=== PATIENT | female | born 2000 | race Caucasian/White ===

== ENCOUNTER 2022-02-15 07:55 | Outpatient (REF) | payer OTHER, SELFPAY ==
[2022-02-15 11:21] LABS: Appearance Urine CLEAR; Color Urine YELLOW; Glucose Urine UA NEG (NEG); Leukocyte Esterase Urine NEG (NEG); Nitrite Urine NEG (NEG); UACC Culture Trigger NO; Urine Blood 2+ (NEG); Urine Ketones NEG (NEG); Urine Protein NEG (NEG-TRACE)
[2022-02-15 11:22] LABS: MANUAL DIFF FLAG NO
[2022-02-15 11:37] LABS: Bacteria Urine TRACE /LPF; Squamous Epithelial Cell Urine 2+ /LPF; WBC Urine 0 /HPF (0-4)
[2022-02-15 11:39] LABS: Basophils Percent Auto 0.3 % (0-2); Eosinophils Absolute Auto 0.1 X10*3/uL (0.0-0.4); Eosinophils Percent Auto 1.3 % (0-4); Hematocrit 40.9 % (37.0-47.0); Hemoglobin 13.1 g/dl (12.0-16.0); Imm Gran Abs Auto 0.04 X10*3/uL (0.00-0.03); Imm Gran Pct Auto 0.4 % (0.0-0.4); Lymphocytes Absolute Auto 2.4 X10*3/uL (1.2-4.9); Lymphocytes Percent Auto 21.7 % (20-40); Mean Corpuscular Volume 84.3 fL (80.0-98.0); Mean Platelet Volume 9.7 fL (9.4-12.3); Monocytes Absolute Auto 0.7 X10*3/uL (0.1-1.2); Monocytes Percent Auto 5.9 % (2-11); Neutrophils Absolute Auto 7.8 x10*3/uL (2.0-8.3); Neutrophils Percent Auto 70.4 % (45-73); Platelet Count 462 X10*3/uL (160-400); Red Blood Count 4.85 X10*6/uL (4.20-5.50); Red Cell Distribution Width 13.2 % (11.0-16.0); White Blood Count 11.1 X10*3/uL (4.8-10.8)
[2022-02-15 11:57] LABS: Alanine Aminotransferase 13 U/L (0-31); Albumin Level 4.2 g/dL (3.5-5.0); Alkaline Phosphatase 112 U/L (39-117); Anion Gap 14 (12-20); Aspartate Amino Transferase 14 U/L (5-31); Bilirubin Total 0.3 mg/dL (0.0-1.0); Blood Urea Nitrogen 14 mg/dL (9-16); Calcium 9.2 mg/dL (8.4-10.2); Carbon Dioxide 26 mmol/L (22-29); Chloride 104 mmol/L (96-108); Cholesterol 147 mg/dL; Estimated Glomerular Filt Rate > 60; Glucose Fasting 99 mg/dL (60-99); HDL Cholesterol 44 mg/dL; LDL Cholesterol Calculated 88 mg/dl; Potassium 4.3 mmol/L (3.3-5.1); Sodium 140 mmol/L (135-145); Total Protein 7.3 g/dL (6.5-8.0); Triglycerides 78 mg/dL
[2022-02-15 12:07] LABS: TSH reflex Free T4 1.31 uIU/mL (0.32-4.0)
== END 2022-02-15 07:56 | disposition home or self-care (01) ==
LOC: HO.HMGCLDS 07:55
PROVIDERS: PCP Nurse Practitioner Family; Visit Provider Nurse Practitioner Family
DX: Z00.00 Encounter for general adult medical examination without abnormal findings (principal)
CPT/HCPCS: 36415; 80053; 80061; 81001; 84443; 85025

== ENCOUNTER 2022-02-16 09:40 | Outpatient (REF) | payer OTHER, SELFPAY ==
[2022-02-16 11:27] LABS: MANUAL DIFF FLAG NO
[2022-02-16 11:28] LABS: Appearance Urine CLOUDY; Color Urine YELLOW; Glucose Urine UA NEG (NEG); Leukocyte Esterase Urine NEG (NEG); Nitrite Urine NEG (NEG); Specific Gravity - Urine 1.025 (1.005-1.025); UACC Culture Trigger NO; Urine Blood 3+ (NEG); Urine Ketones NEG (NEG); Urine Protein 1+ MG/DL (NEG-TRACE)
[2022-02-16 11:40] LABS: Basophils Percent Auto 0.4 % (0-2); Eosinophils Absolute Auto 0.1 X10*3/uL (0.0-0.4); Eosinophils Percent Auto 1.1 % (0-4); Hematocrit 39.8 % (37.0-47.0); Imm Gran Abs Auto 0.03 X10*3/uL (0.00-0.03); Imm Gran Pct Auto 0.3 % (0.0-0.4); Lymphocytes Percent Auto 21.7 % (20-40); Mean Corpuscular HGB Conc 32.7 g/dl (31.0-35.0); Mean Corpuscular Hemoglobin 27.1 pg (27.0-33.0); Mean Corpuscular Volume 83.1 fL (80.0-98.0); Mean Platelet Volume 9.7 fL (9.4-12.3); Monocytes Absolute Auto 0.5 X10*3/uL (0.1-1.2); Monocytes Percent Auto 5.9 % (2-11); Neutrophils Absolute Auto 6.3 x10*3/uL (2.0-8.3); Neutrophils Percent Auto 70.6 % (45-73); Platelet Count 466 X10*3/uL (160-400); Red Blood Count 4.79 X10*6/uL (4.20-5.50)
[2022-02-16 11:57] LABS: Squamous Epithelial Cell Urine 2+ /LPF
[2022-02-16 11:58] LABS: Bacteria Urine TRACE /LPF
== END 2022-02-16 09:41 | disposition home or self-care (01) ==
LOC: HO.HMGCLDS 09:40
PROVIDERS: PCP Nurse Practitioner Family; Visit Provider Nurse Practitioner Family
DX: D72.829 Elevated white blood cell count, unspecified (principal)
CPT/HCPCS: 36415; 81001; 85025

== ENCOUNTER 2022-02-23 11:52 | Emergency (ER) | payer OTHER, SELFPAY ==
--- NOTE | ~2022-02-23 | XR_ITS ---
EXAMINATION: XR CHEST CLINICAL INFORMATION: Covid positive and SOB. COMPARISON: None TECHNIQUE: Frontal view of the chest was obtained. FINDINGS: No significant abnormality is noted involving the heart, lungs, mediastinum, bony thorax or soft tissues. XR/XR chest 1V IMPRESSION: Unremarkable chest examination.
--- NOTE | 2022-02-23 12:16 | ECG_ITS ---
Test Reason : chest tightness Blood Pressure : / mmHG Vent. Rate : 091 BPM Atrial Rate : 091 BPM P-R Int : 138 ms QRS Dur : 084 ms QT Int : 348 ms P-R-T Axes : 051 031 011 degrees QTc Int : 428 ms Normal sinus rhythm with sinus arrhythmia Cannot rule out Anterior infarct , age undetermined Abnormal ECG No previous ECGs available Referred By: Generic ED Physician Electronically Signed By:JUVENCIO SANDERSON
[2022-02-23 12:51] VITALS: BP 136/58; PULSE 85; RESP 18; TEMP 36.8; O2SAT 98; BMI 43.9
[2022-02-23 13:24] LABS: COVID-19 Test Positive (Negative); IDNOW Serial# 9DB6401D
--- NOTE | 2022-02-23 14:28 | ED_ITS ---
HPI - URI/Sore Throat General Chief Complaint: General Medical Stated Complaint: Covid+/Heart palpitations/SOB Time Seen by Provider: 02/23/22 13:56 Source: patient Mode of arrival: ambulatory Limitations: no limitations History of Present Illness HPI Narrative: 21-year-old female with a past medical history of GERD and COVID presenting to the ED with complaints of intermittent headaches for the past few days with a recent COVID exposure approximately 1-1/2 to 2 weeks ago at her job. 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 She reports today when she was walking up the stairs she felt very winded/short of breath and felt like her heart was racing/palpitating. She denies any fevers, chills, dizziness, neck pain/stiffness, chest pain, cough, sputum production, orthopnea, paresthesias, nausea/vomiting/diarrhea constipation, black or bloody stools, abdominal pain, flank pain, dysuria, hematuria, abnormal vaginal discharge, rashes, recent travel or any other symptoms complaints or concerns at this time. MD elicited complaint: other (Headache, shortness of breath and palpitations) Onset (ago): day(s) (The headache started a few days ago shortness of breath started today) Consistency: constant and progressively worsening Severity: mild Able to tolerate fluids by mouth: Yes Exacerbating factors: other (Walking up the stairs started today) Relieving factors: nothing Context: sick contacts (See above) and other(s) with similar symptoms Associated symptoms: headache and shortness of breath Treatments prior to arrival: none Related Data Previous Rx's Medication Instructions Recorded pantoprazole 20 mg tablet,delayed 20 mg PO DAILY 30 days #30 tabs 02/14/22 release vitkpcbzny-twetsesrwciof-gyjvjjko 1 cap PO Q8H PRN pain #10 caps 02/23/22 50 mg-300 mg-40 mg capsule (Fioricet) Allergies Allergy/AdvReac Type Severity Reaction Status Date / Time No Known Allergies Allergy Verified 02/14/22 17:49 Review of Systems Review of Systems: Constitutional : No Weight loss, No Fever, No Chills, No Night Sweats, No Fatigue, No Malaise ENT/Mouth : No Hearing loss, No Ear Pain, No Nasal Congestion, No Sinus Pain, No Hoarseness, No sore throat, No Rhinorrhea, No Swallowing Difficulty Eyes: No Eye Pain, No Swelling, No Redness, No Foreign Body, No Discharge, No Vision Changes Cardiovascular : No Chest Pain, + SOB, No Dyspnea on Exertion, No Orthopnea, No Edema, No Palpitations Respiratory : No Cough, No Sputum, No Wheezing, No Smoke Exposure, No Dyspnea Gastrointestinal : No Nausea, No Vomiting, No Diarrhea, No Constipation, No abdominal Pain, No Hematochezia, No Melena Genitourinary : no irregular bleeding, No Dysuria, No Urinary Frequency, No Hematuria, No Urinary Incontinence, No Urgency, No Flank Pain, No Urinary Flow Changes, No Hesitancy Musculoskeletal : No joint pain, No Myalgias, No Joint Swelling Skin : No Skin Lesions, No rash Neuro : No Weakness, No Numbness, No Paresthesias, No Loss of Consciousness, No Dizziness, + Headache Psych : No Anxiety/Panic, No Depression, No SI/HI/AH/VH, No Social Issues, Heme/Lymph: No Bruising, No Bleeding,No Lymphadenopathy Endocrine : No Polyuria, No Polydipsia, No Temperature Intolerance Yes all other systems are reviewed and are negative [facility] Past Medical History Attestation statement: The following information was validated with the patient. Source: old records reviewed and nursing notes reviewed Social History Social History Housing: House Patient Tobacco Use Status: Never used Tobacco e-Cigarette/Vaping Use: Never Used Second Hand Smoke Exposure: No Advance Directives: No Advance Directives Information Provided: No service: No Current occupational status: employed Current occupation: [employer] Current occupational exposures/hazards: No Cognitive needs: No Hearing needs: No Vision needs: No Physical Exam Vital Signs: Vital Signs: Last Vital Signs Temp 98.2 F 02/23/22 12:51 Pulse 85 02/23/22 12:51 Resp 18 02/23/22 12:51 BP 136/58 L 02/23/22 12:51 Pulse Ox 98 02/23/22 12:51 BMI result Body Mass Index 43.9 vital signs have been reviewed as normal and appeared to be correct. Blood pressure 136/58. Heart rate normal. Respiration rate normal. Temperature normal. Oxygen saturation normal. Appearance: Alert. Oriented X3. No acute distress. Head: Normal external exam. Normocephalic. Atraumatic. Eyes: PERRLA. EOMI. Conjunctiva and sclera normal. Eyelids normal. ENT: EAC normal. TM's Normal. Pharynx normal. Uvula midline. Moist mucous membranes. No lesions/ulcerations or masses noted on the tongue. Normal voice. No trismus noted. No drooling noted. No muffled voice noted. Neck: Normal inspection. Neck supple. FROM. No adenopathy. Thyroid Normal. No meningeal signs. No neck mass noted. N CVS: Normal heart rate and rhythm. Heart sound normal. Pulses normal throughout. No murmurs/rales/gallops. Respiratory: No respiratory distress. Painless inspiration. Breath sounds normal. No wheezes/rales/rhonchi noted. Chest nontender. No accessory muscle usage noted or decreased air movement noted. Abdomen: Soft and nontender. Bowel sounds normal in all 4 quadrants. No distention noted. No organomegaly noted. No visible injury noted. Back: Full range of motion noted. Nontender. Skin: Skin warm and dry. Normal skin color. Normal skin turgor. No rashes/lesions/lacerations noted. Extremities: No lower extremity edema. No calf tenderness is noted. Extremities exhibit normal range of motion and nontender. Neuro: Oriented X 3. No motor deficit. No sensory deficit. Reflexes normal. Normal steady gait. No focal neuro deficits noted. CN's II-XII intact bilaterally? Vascular: + radial pulses/+ 2 distal pedal pulses/+2 dorsalis pedis b/l. Normal cap refill. No cyanosis noted to upper extremity nails and lower extremity toes nails. Course Course Course Narrative: 14:05pm - 21-year-old female with a past medical history of GERD and COVID presenting to the ED with complaints of intermittent headaches for the past few days with a recent COVID exposure approximately 1-1/2 to 2 weeks ago at her job. 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 She reports today when she was walking up the stairs she felt very winded/short of breath and felt like her heart was racing/palpitating. Patient positive for COVID. EKG is normal sinus rhythm with sinus arrhythmia with ventricular rate of 91 with a normal NE interval normal QRS duration normal QT/QTC interval. No acute ischemic change are noted. No prior EKGs to compare to at this time. Will obtain a chest x-ray and re-evaluate. MDM - URI/Sore Throat Medical Records Attestation: I reviewed the patient's medical records. Lab Data Attestation: I reviewed the patient's lab results. Labs: Lab Results 02/23/22 Range/Units 12:54 COVID-19 ([facility]) Positive A (Negative) COVID-19 Clin Com See Note Imaging Data Chest x-ray: Attestation: I personally reviewed and interpreted this imaging study as follows: Radiologist's impression: FINDINGS: No significant abnormality is noted involving the heart, lungs, mediastinum, bony thorax or soft tissues. XR/XR chest 1V IMPRESSION: Unremarkable chest examination. ECG Data Attestation: I personally reviewed and interpreted this ECG as follows: ECG interpretation date: 02/23/22 ECG interpretation time: 12:01 Interpretation: EKG is normal sinus rhythm with sinus arrhythmia with ventricular rate of 91 with a normal NE interval normal QRS duration normal QT/QTC interval. No acute ischemic change are noted. No prior EKGs to compare to at this time. Discharge Plan Discharge Clinical Impression: COVID-19 Patient Disposition: Home, Self-Care Instructions: COVID-19 (Coronavirus Disease 2019) (ED) Additional Instructions: Please self isolate per CDC guidelines for COVID-19. Return if any new or worsening symptoms. Monitor oxygen level if your oxygen level goes lower than 90% then you need to return immediately. Prescriptions: New xfftxdawht-nlqxmychqocty-ddwz [Fioricet] 50-300-40 mg capsule 1 cap PO Q8H PRN (Reason: pain) Qty: 10 0RF No Action pantoprazole 20 mg tablet,delayed release (DR/EC) 20 mg PO DAILY 30 Days Qty: 30 2RF Referrals: Roderick Cantor, [employer] [Primary Care Provider] - 2 days Stand Alone Forms: Work/School Release
== END 2022-02-23 15:28 | disposition home or self-care (01) ==
PROVIDERS: Emergency Provider Internal Medicine; PCP Nurse Practitioner Family
DX: U07.1 COVID-19 (principal); R51.9 Headache, unspecified
CPT/HCPCS: 71045; 87635; 93005; 99283

== ENCOUNTER 2022-05-09 08:41 | Outpatient (REF) | payer OTHER, SELFPAY ==
[2022-05-09 14:11] LABS: CT PCR NOT DETECTED (Not Detect.); NG PCR NOT DETECTED (Not Detect.)
[2022-05-10 12:23] LABS: BV Int Neg Control Negative (Negative); BV Int Pos Control Positive (Positive)
== END 2022-05-09 08:42 | disposition home or self-care (01) ==
LOC: HO.LNP 08:41
PROVIDERS: Visit Provider Advanced Practice Midwife
DX: Z01.419 Encounter for gynecological examination (general) (routine) without abnormal findings (principal); N94.6 Dysmenorrhea, unspecified; Z11.3 Encounter for screening for infections with a predominantly sexual mode of transmission; Z11.8 Encounter for screening for other infectious and parasitic diseases
CPT/HCPCS: 87480; 87491; 87510; 87591; 87660; 88142

== ENCOUNTER 2023-01-25 05:26 | Emergency (ER) | payer OTHER, SELFPAY ==
[2023-01-25 06:16] VITALS: BP 126/74; PULSE 93; RESP 16; TEMP 36.8; O2SAT 99; BMI 47.8
--- OUTSIDE RECORDS SUMMARY | 2023-01-25 07:23 | XMS_ITS | Continuity of Care Document ---
Author Name Unknown Organization [facility] ter Address [address] [place] [address]- Care Team Providers Care Carry In Worker Name Role Phone Lan Haynes MD Primary Care Physician [phone] Encounter [facility] [place] Date(s): 10/28/21 - 10/28/[address] [address]- Discharge Disposition: A-D/C Walkout Attending Physician: Not on Staff, Attending MD Admitting Physician: Not on Staff, Admitting MD Referring Physician: Not on Staff, Referring MD Allergies, Adverse Reactions, Alerts No Known Allergies Medications acetaminophen 325 mg oral tablet 650 mg, 2, tablet, By Mouth, Every 6 hours, PRN, # 24 tablet, Refills 0, Tot. Refills 0, Maintenance, Pain , Moderate, 10/24/21 22:03:00 EDT, Route to Pharmacy Electronically, [facility] #[id number], Partial fill upon patient request if the presc... Start Date: 10/24/21 Status: Ordered Azithromycin 5 Day Dose Pack 250 mg oral tablet 1 pack/packet, By Mouth, Once, # 6 tablet, 0 Refills, Soft Stop, 10/24/21 22:03:00 EDT, Tablet, [facility] #[id number], Partial fill upon patient request if the prescription is for a schedule IIopioid drug., 158, cm, 10/24/21 21:25:00 EDT, Michelle... Start Date: 10/24/21 Status: Ordered famotidine 10 mg oral tablet 1 tablet = 10 mg, By Mouth, 2 times a day, # 20 tablet, 0 Refills, Maintenance, 10/28/21 9:56:00 EDT, Tablet, [facility] #[id number], Partial fill upon patient request if the prescription is fora schedule II opioid drug., 158, cm, 10/28/21 2:39:... Start Date: 10/28/21 Status: Ordered Tessalon Perles 100 mg oral capsule 1 capsule = 100 mg, By Mouth, 3 times a day, PRN Cough, # 20 capsule, 0 Refills, Maintenance, 10/24/21 22:03:00 EDT, Capsule, [facility] #[id number], Partial fill upon patient request if the prescription is for a schedule II opioid drug., 158, cm... Start Date: 10/24/21 Status: Ordered Problem List Condition Effective Dates Status Health Status Inform ant Severe obesity(Confirmed) Active Vital Signs Most recent to oldest [Reference Range]: 1 2 Oxygen Saturation [94-100 %] 100 % (10/28/21 1:35 AM) 100 % (10/28/21 1:26 AM) Pulse Rate [55-90 bpm] 108 bpm *H* (10/28/21 1:35 AM) 109 bpm *H* (10/28/21 1:26 AM) Blood Pressure [90-138/55-84 mm Hg] 130/ 75mm Hg (10/28/21 1:35 AM) Respiratory Rate [16-30 br/min] 20 br/mi n (10/28/21 1:35 AM) Temperature [96.8-100.4 DegF] 98.4 DegF (10/28/21 1:45 AM) Mode of Delivery (Oxygen) Room air (10/28/21 1:35 AM) Blood pressure sites Arm, left (10/28/21 1:35 AM) Temperature Route Oral (10/28/21 1:45 AM)
--- OUTSIDE RECORDS SUMMARY | 2023-01-25 07:23 | XMS_ITS | Continuity of Care Document ---
Author Name Unknown Organization [facility] ter Address [address] [place] [id number]- Care Team Providers Care Checker Name Role Phone Lan Haynes MD Primary Care Physician [phone] [facility] [place] Date(s): 08/07/21 - 08/08/[address] [address]- Discharge Disposition: A-D/C Walkout Attending Physician: Not on Staff, Attending MD Admitting Physician: Not on Staff, Admitting MD Referring Physician: Not on Staff, Referring MD Medications No Known Medications Results Radiology Reports * Exam Date Time Procedure Performing Provider Status 08/08/21 12:32 AM Chest 2 Views Frontal and Lat Jay Rojas (Verified) Notes: (Chest 2 Views Frontal and Lat) Reason For Exam: Chest Pain;Other: RESULT: Chest 2 Views Frontal and Lat Chest 2 Views Frontal and Lat Hx of Present Illness: pt complains of chest pain for 30 minutes; Reason: Other:; Chest Pain; Clinical Question(s): Other: COMPARISON: 07/28/2015 chest radiograph. FINDINGS: LINES AND TUBES: None. LUNGS AND PLEURA: Clear lungs. Normal pulmonary vascularity. No pleural effusion. No pneumothorax. HEART, MEDIASTINUM AND GEOFF: Heart is normal in size. Normal upper mediastinal and hilar contour. BONES AND SOFT TISSUES: No acute abnormality. IMPRESSION: No acute abnormality. WSN: [id number] Ordering Physician: Kaylene Sanchez Dictated By: Vaughn Samuels MD Dictated Date/Time: 08/08/21 9:45 am Reviewed By: Vaughn Samuels MD Signed By: Vaughn Samuels MD Signed Date/Time: 08/08/21 9:45 am Transcribed By: CHINO Transcribed Date/Time: 08/08/21 9:45 am Vital Signs Most recent to oldest [Reference Range]: 1 2 Oxygen Saturation [94-100 %] 100 % (08/08/21 2:05 AM) 100 % (08/07/21 11:46 PM) Pulse Rate [55-90 bpm] 88 bpm (08/08/21 2:05 AM) 111 bpm *H* (08/07/21 11:46 PM) Blood Pressure [90-138/55-84 mm Hg] 124/ 66mm Hg (08/08/21 2:05 AM) 115/69mm Hg (08/07/21 11:46 PM) Respiratory Rate [16-30 br/min] 18 br/mi n (08/08/21 2:05 AM) 20 br/min (08/07/21 11:46 PM) Temperature [96.8-100.4 DegF] 98.3 DegF (08/08/21 2:05 AM) 98.0 DegF (08/07/21 11:46 PM) Mode of Delivery (Oxygen) Room air (08/08/21 2:05 AM) Blood pressure sites Arm, right (08/08/21 2:05 AM) Arm, right (08/07/21 11:46 PM) Temperature Route Oral (08/08/21 2:05 AM) Oral (08/07/21 11:46 PM)
[2023-01-25 07:31] LABS: MANUAL DIFF FLAG NO
[2023-01-25 07:33] LABS: Basophils Percent Auto 0.2 % (0-2); Eosinophils Percent Auto 0.1 % (0-4); Hematocrit 42.3 % (37.0-47.0); Hemoglobin 13.5 g/dl (12.0-16.0); Imm Gran Abs Auto 0.05 X10*3/uL (0.00-0.03); Imm Gran Pct Auto 0.4 % (0.0-0.4); Lymphocytes Absolute Auto 1.4 X10*3/uL (1.2-4.9); Lymphocytes Percent Auto 10.4 % (20-40); Mean Corpuscular HGB Conc 31.9 g/dl (31.0-35.0); Mean Corpuscular Hemoglobin 26.4 pg (27.0-33.0); Mean Corpuscular Volume 82.8 fL (80.0-98.0); Mean Platelet Volume 9.3 fL (9.4-12.3); Monocytes Absolute Auto 0.4 X10*3/uL (0.1-1.2); Monocytes Percent Auto 3.1 % (2-11); Neutrophils Absolute Auto 11.5 x10*3/uL (2.0-8.3); Neutrophils Percent Auto 85.8 % (45-73); Platelet Count 454 X10*3/uL (160-400); Red Blood Count 5.11 X10*6/uL (4.20-5.50); Red Cell Distribution Width 13.6 % (11.0-16.0); White Blood Count 13.4 X10*3/uL (4.8-10.8)
[2023-01-25 07:35] LABS: Appearance Urine Clear; Color Urine Yellow; Glucose Urine UA Negative (Negative); Leukocyte Esterase Urine Negative (Negative); Nitrite Urine Negative (Negative); PH 5.5 (5.0-9.0); Specific Gravity - Urine 1.015 (1.005-1.025); Urine Blood Negative (Negative); Urine Ketones Negative (Negative); Urine Protein Negative (Neg-Trace)
[2023-01-25 07:38] LABS: UPreg QC Valid YES; Urine Pregnancy NEGATIVE (NEGATIVE)
[2023-01-25 07:54] LABS: Anion Gap 14 (12-20); Blood Urea Nitrogen 9 mg/dL (9-16); Calcium 10.1 mg/dL (8.4-10.2); Carbon Dioxide 25 mmol/L (22-29); Chloride 104 mmol/L (96-108); Creatinine Clr Calc Pharmacy 153.7; Estimated Glomerular Filt Rate > 60; Glucose Random 126 mg/dL (60-115); Potassium 4.1 mmol/L (3.3-5.1); Sodium 139 mmol/L (135-145)
[2023-01-25 08:27] VITALS: BP 118/69; PULSE 97; RESP 16; TEMP 36.9; O2SAT 99
--- NOTE | 2023-01-25 08:59 | ED_ITS ---
HPI - Abdominal Pain General Chief Complaint: General Medical Stated Complaint: abd pain, radiates to back Time Seen by Provider: 01/25/23 08:26 Source: patient Mode of arrival: ambulatory Limitations: no limitations History of Present Illness HPI narrative: 22 yo female hx of GERD on pantoprazole no prior abdominal surgeries states february of last year had a full workup for abdominal pain told she did not have gallstones - here with c/o loose stools and diarrhea for 4 days no travel or antibiotic use, as well as upper abdominal pain that radiated to her back. She is compliant with medications but does note she might have laid flat after eating. She states she feels fine now and has no complaints. No fevers. MD elicited complaint: abdominal pain Pertinent past history: other (GERD) Onset (ago): day(s) (4) Pain Consistency: intermittent Location: epigastric Severity: moderate Quality: aching Radiation: back Migration to: no migration Exacerbating factors: nothing Relieving factors: nothing Associated symptoms: diarrhea Related Data Previous Rx's Medication Instructions Recorded levonorgestrel-ethinyl estradiol 1 tab PO DAILY PRN OCP #28 tabs 05/26/22 0.1 mg-20 mcg tablet (Lessina) pantoprazole 20 mg tablet,delayed 20 mg PO DAILY #90 tabs 12/09/22 release ondansetron 4 mg disintegrating 4 mg PO Q8H PRN nausea and 01/25/23 tablet vomiting #20 tabs Allergies Allergy/AdvReac Type Severity Reaction Status Date / Time No Known Allergies Allergy Verified 05/26/22 09:25 Review of Systems Review of Systems Constitutional : No Weight loss, No Fever, No Chills ENT/Mouth : No sore throat, No Rhinorrhea Eyes: No Swelling, No Redness Cardiovascular : No Chest Pain, No SOB, NoEdema Respiratory : No Cough, No Sputum, No Wheezing Gastrointestinal : no Nausea, Positive Vomiting, positive Diarrhea, positive abdominal Pain, No Hematochezia, No Melena Genitourinary : No Dysuria, No Urinary Frequency, No Hematuria, No Urgency Musculoskeletal : No joint pain, No Myalgias, No Joint Swelling Skin : No Skin Lesions, No rash Neuro : No Weakness, No Numbness, No Dizziness, No Headache Psych : No Anxiety/Panic, No Depression Heme/Lymph: No Bruising, No Lymphadenopathy Endocrine : No Polyuria, No Polydipsia All other systems reviewed and are negative. [facility] Past Medical History Attestation statement: The following information was validated with the patient. Medical History GERD (gastroesophageal reflux disease) Morbid obesity with BMI of 40.0-44.9, adult Social History Social History Housing: House Patient Tobacco Use Status: Never used Tobacco e-Cigarette/Vaping Use: Never Used Second Hand Smoke Exposure: No Advance Directives: No Advance Directives Information Provided: No service: No Current occupational status: employed Current occupation: [employer] Current occupational exposures/hazards: No Sexual orientation: Straight/Heterosexual Gender identity: Female Cognitive needs: No Hearing needs: No Vision needs: No Physical Exam ED Vital Signs: Vital Signs - 24 hr 01/25/23 06:16 01/25/23 08:27 Temperature 98.2 F 98.4 F Pulse Rate 93 97 Respiratory Rate 16 16 Blood Pressure 126/74 118/69 Pulse Oximetry 99 99 Oxygen Delivery Method Room Air Room Air BMI result Body Mass Index 47.8 Appearance: Alert. Oriented X3. No acute distress. Eyes: Pupils equal, round and reactive to light. ENT: Pharynx normal. Neck: Normal inspection. Neck supple. CVS: Normal heart rate and rhythm. Pulses normal. Respiratory: No respiratory distress. Breath sounds normal. Abdomen: Soft and nontender. Skin: Skin warm and dry. Normal skin color. Normal skin turgor. Extremities: No lower extremity edema. No calf ttp Neuro: Oriented X 3. No motor deficit. No sensory deficit. Medical Decision Making Medical Decision Making MDM Narrative: 22 yo female with hx of GERD no prior abdominal surgeries here with c/o epigastric pain and diarrhea but no travel, abx use, hx of colitis, fevers, GIB symptoms. the patient has no pain on exam now mild elevation in WBC count but on repeat exams has no ttp whatsover states she feels fine - tells me she does not have biliary colic and has been worked up negative in the past. The patient also notes no known hx of Crohns or UC but grandmother might have had colitis. She is not toxic, VS are stable, given lack of pain and feels better I do not think she warrants imaging she has negative monet's sign. will dc home with precautions. Differential Diagnosis Differential Diagnoses: The differential diagnosis associated with the presentation includes GERD, colitis, biliary colic, pancreatitis Lab Data MDM Lab Attestation statement: I reviewed the patient's lab results. 01/25/23 07:26 01/25/23 07:26 Labs: Lab Results 01/25/23 01/25/23 01/25/23 Range/Units 07:22 07:22 07:26 WBC 13.4 H (4.8-10.8) X10*3/uL RBC 5.11 (4.20-5.50) X10*6/uL Hgb 13.5 (12.0-16.0) g/dl Hct 42.3 (37.0-47.0) % MCV 82.8 (80.0-98.0) fL MCH 26.4 L (27.0-33.0) pg MCHC 31.9 (31.0-35.0) g/dl RDW 13.6 (11.0-16.0) % Plt Count 454 H (160-400) X10*3/uL MPV 9.3 L (9.4-12.3) fL Immature Gran % (Auto) 0.4 (0.0-0.4) % Neut % (Auto) 85.8 H (45-73) % Lymph % (Auto) 10.4 L (20-40) % [place] % (Auto) 3.1 (2-11) % Eos % (Auto) 0.1 (0-4) % Baso % (Auto) 0.2 (0-2) % Lymph # (Auto) 1.4 (1.2-4.9) X10*3/uL [place] # (Auto) 0.4 (0.1-1.2) X10*3/uL Eos # (Auto) 0.0 (0.0-0.4) X10*3/uL Baso # (Auto) 0.0 (0.0-0.2) X10*3/uL Abs Immat Gran (auto) 0.05 H (0.00-0.03) X10*3/uL Absolute Neuts (auto) 11.5 H (2.0-8.3) x10*3/uL Absolute Nucleated RBC 0.000 (0.0-0.012) X10*3/uL Nucleated RBC % (auto) 0.0 (0.0-0.2) /100WBC Sodium (135-145) mmol/L Potassium (3.3-5.1) mmol/L Chloride (96-108) mmol/L Carbon Dioxide (22-29) mmol/L Anion Gap (12-20) BUN (9-16) mg/dL Creatinine (0.5-1.4) mg/dL Estim Creat Clear Calc Estimated GFR Random Glucose (60-115) mg/dL Calcium (8.4-10.2) mg/dL Urine Color Yellow Urine Appearance Clear Urine pH 5.5 (5.0-9.0) Ur Specific [place] 1.015 (1.005-1.025) Urine Protein Negative (Neg-Trace) mg/dL Urine Glucose (UA) Negative (Negative) mg/dL Urine Ketones Negative (Negative) mg/dL Urine Blood Negative (Negative) Urine Nitrite Negative (Negative) Ur Leukocyte Esterase Negative (Negative) Urine Test NEGATIVE (NEGATIVE) 01/25/23 Range/Units 07:26 WBC (4.8-10.8) X10*3/uL RBC (4.20-5.50) X10*6/uL Hgb (12.0-16.0) g/dl Hct (37.0-47.0) % MCV (80.0-98.0) fL MCH (27.0-33.0) pg MCHC (31.0-35.0) g/dl RDW (11.0-16.0) % Plt Count (160-400) X10*3/uL MPV (9.4-12.3) fL Immature Gran % (Auto) (0.0-0.4) % Neut % (Auto) (45-73) % Lymph % (Auto) (20-40) % [place] % (Auto) (2-11) % Eos % (Auto) (0-4) % Baso % (Auto) (0-2) % Lymph # (Auto) (1.2-4.9) X10*3/uL [place] # (Auto) (0.1-1.2) X10*3/uL Eos # (Auto) (0.0-0.4) X10*3/uL Baso # (Auto) (0.0-0.2) X10*3/uL Abs Immat Gran (auto) (0.00-0.03) X10*3/uL Absolute Neuts (auto) (2.0-8.3) x10*3/uL Absolute Nucleated RBC (0.0-0.012) X10*3/uL Nucleated RBC % (auto) (0.0-0.2) /100WBC Sodium 139 (135-145) mmol/L Potassium 4.1 (3.3-5.1) mmol/L Chloride 104 (96-108) mmol/L Carbon Dioxide 25 (22-29) mmol/L Anion Gap 14 (12-20) BUN 9 (9-16) mg/dL Creatinine 0.69 (0.5-1.4) mg/dL Estim Creat Clear Calc 153.7 Estimated GFR > 60 Random Glucose 126 H (60-115) mg/dL Calcium 10.1 D (8.4-10.2) mg/dL Urine Color Urine Appearance Urine pH (5.0-9.0) Ur Specific [place] (1.005-1.025) Urine Protein (Neg-Trace) mg/dL Urine Glucose (UA) (Negative) mg/dL Urine Ketones (Negative) mg/dL Urine Blood (Negative) Urine Nitrite (Negative) Ur Leukocyte Esterase (Negative) Urine Test (NEGATIVE) External Record Review External record reviewed: Office record Tests considered The following testing was considered but not selected: CT scan and US - no pain on abdominal exam to suggest colitis and negative murphys sign with normal labs no RUQ pain doubt biliary colic or pancreatitis Prescription Management I considered prescription management with: Other (zofran) Discharge Plan Discharge Clinical Impression: Acute upper abdominal pain Diarrhea Qualifiers: Diarrhea type: unspecified type Qualified Code(s): R19.7 - Diarrhea, unspecified Patient Disposition: Home, Self-Care Instructions: Acute Diarrhea (ED), Acute Abdominal Pain (ED) Additional Instructions: return for fevers, vomiting, return of pain, black or bloody stools, inability to eat or drink or any other concerns. your WBC count was mildly elevated make sure your doctor rechecks this in a week when feeling better. eat a bland diet - stay hydrated avoid spicy and greasy foods advance diet slowly over 24 hours as tolerated Prescriptions: New ondansetron 4 mg tablet,disintegrating 4 mg PO Q8H PRN (Reason: nausea and vomiting) Qty: 20 0RF No Action pantoprazole 20 mg tablet,delayed release (DR/EC) 20 mg PO DAILY Qty: 90 0RF levonorgestrel-ethinyl estrad [Lessina] 0.1-20 mg-mcg tablet 1 tab PO DAILY PRN (Reason: OCP) Qty: 28 4RF Stand Alone Forms: Work/School Release
[2023-01-25 09:31] LABS: Alanine Aminotransferase 12 U/L (0-31); Albumin Level 4.3 g/dL (3.5-5.0); Alkaline Phosphatase 112 U/L (39-117); Aspartate Amino Transferase 13 U/L (5-31); Bilirubin Direct 0.1 mg/dL (0.0-0.5); Bilirubin Total 0.3 mg/dL (0.0-1.0); Lipase 11 U/L (8-78)
== END 2023-01-25 10:22 | disposition home or self-care (01) ==
PROVIDERS: Emergency Provider Emergency Medicine; PCP Nurse Practitioner Family
DX: R19.7 Diarrhea, unspecified (principal); R10.10 Upper abdominal pain, unspecified; E66.9 Obesity, unspecified; Z68.42 Body mass index [BMI] 45.0-49.9, adult
CPT/HCPCS: 36415; 80048; 80076; 81003; 81025; 83690; 85025; 99283; 99284

== ENCOUNTER 2023-02-16 10:12 | Outpatient (AMB) | payer OTHER, SELFPAY ==
[2023-02-16 11:03] VITALS: BP 100/64; PULSE 86; O2SAT 100; BMI 48.3
--- NOTE | 2023-02-16 11:03 | A.OFFPC_ITS ---
Vital Signs 02/16/23 11:03 Height 5 ft 2 in Weight 264 lb 2 oz BMI 48.3 BP 100/64 Blood Pressure Location Lt brachial Position Sitting Pulse 86 Pulse Source Pulse Oximeter Pulse Oximetry (%) 100 Oxygen Delivery Method Room Air Intake Visit Reasons: PE Allergies No Known Allergies Allergy (Verified 02/16/23 11:04) Medication List - Last Reconciled 02/16/23 by PEDRO Edwards pantoprazole 20 mg PO DAILY Tobacco use date assessed: 02/16/23 HPI PE HPI Details Pt is here for a PE. Will order labs. Has a rn urgent care. [facility] Medical History GERD (gastroesophageal reflux disease) Morbid obesity with BMI of 40.0-44.9, adult Social History Housing: House Patient Tobacco Use Status: Never used Tobacco e-Cigarette/Vaping Use: Never Used Second Hand Smoke Exposure: No service: No Current occupational status: employed Current occupation: [employer] Current occupational exposures/hazards: No Sexual orientation: Straight/Heterosexual Gender identity: Female Cognitive needs: No Hearing needs: No Vision needs: No Female Reproductive History Menstrual Age of Menarche: 8 Questionnaire Thrive Questionnaire Date Thrive assessed: 02/14/22 CHARI-7 AMB Questionnaire CHARI-7 Date CHARI - 7 assessed: 02/14/22 Source: Developed by Drs. Maynor Rosales, Ellen Freire, Luiz Francis and colleagues, with an educational jin from [employer]. Review of Systems Const Denies chills and Denies fever(s) Eyes Denies blurry vision ENT Denies vertigo, Denies dizziness and Denies sore throat Card Denies chest pain at rest, Denies chest pain with activity, Denies diaphoresis, Denies dyspnea and Denies dyspnea on exertion Resp Denies cough, Denies dyspnea, Denies dyspnea on exertion and Denies wheezing GI Denies abdominal pain, Denies melena, Denies hematochezia, Denies constipation, Denies diarrhea and Denies loose stools Denies hematuria Musc Denies numbness and Denies tingling Skin/Breast Denies lesions Neuro Denies vertigo, Denies dizziness, Denies numbness and Denies tingling Psych Denies anxiety, Denies depression, Denies homicidal ideation, Denies suicidal ideation and Denies other (substance abuse) Aller/Immun Denies wheezing Physical exam (Primary Care) Vital Signs: Last Vital Signs Pulse 86 02/16/23 11:03 BP 100/64 02/16/23 11:03 Pulse Ox 100 02/16/23 11:03 Oxygen Delivery Method Room Air 02/16/23 11:03 BMI result Body Mass Index 48.3 Tobacco/Smoking Status: Tobacco use Status Tobacco use date assessed 02/16/23 02/16/23 11:05 Patient Tobacco Use Status Never used Tobacco 02/16/23 11:05 e-Cigarette/Vaping Use Never Used 02/16/23 11:05 Thrive Assessment: Date of Thrive Assessment Date Thrive assessed 02/14/22 02/16/23 11:05 Const General: cooperative Nutritional Appearance: obese morbidly obese Orientation/consciousness: patient oriented x3 HENMT Head: Yes normal to inspection, Yes normocephalic and Yes atraumatic Ears: TM's normal bilaterally Eyes General: appearance normal, both eyes and all related structures Alignment and Position: alignment normal and position normal Neck Neck: Yes normal visual inspection and Yes no lymphadenopathy Thyroid: Thyroid normal Resp Effort & Inspection: normal respiratory effort Auscultation: clear to auscultation bilaterally Cardio Rate: regular rate Rhythm: regular rhythm Heart sounds: S1 normal heart sound present, S2 normal heart sound present and no murmurs GI Palpation (GI): Soft to palpation and nontender Auscultation: normal bowel sounds Skin Rashes: no rashes Neuro General: patient oriented x3, moves all extremities, no focal motor deficits and deep tendon reflexes 2+ bilaterally Romberg Test: Negative Psych Appearance: grossly normal Mental Status: mental status grossly normal Speech and movement: Normal speech and movement present Affect: normal affect Attitude: cooperative Thought process: Normal thought process present Thought content: Normal thought content present Insight: Good insight present (Psych) Judgement: Good judgement present (Psych) Assessment and Plan Assessment & Plan (1) Physical exam: Code(s): Z00.00 - Encounter for general adult medical examination without abnormal findings Plan: Labs ordered Plan The patient agreed to the use of a anesthesiology medical doctor for this encounter. Scribed for PEDRO Dewitt by Alie Rebollar, anesthesiology medical doctor, on 02/16/2023 at 11:10 EST. Orders: Orders Comprehensive [place]. Panel Fast Today Z00.00 - Encounter for general adult medical examination without abnormal findings Lipid Panel Today Z00.00 - Encounter for general adult medical examination wi thout abnormal findings TSH reflex Free T4 Today Z00.00 - Encounter for general adult medical examination without abnormal findings Complete Blood Count Auto Diff Today Z00.00 - Encounter for general adult medical examination without abnormal findings UA CC w/rflx Micro + Cult Today Z00.00 - Encounter for general adult medical examination without abnormal findings Coding Level of Care Code Est Pt Prev Care 18-39y(50799) Diagnoses Physical exam Z00.00
== END 2023-02-16 11:28 | disposition home or self-care (01) ==
PROVIDERS: Visit Provider Nurse Practitioner Family
DX: Z00.00 Encounter for general adult medical examination without abnormal findings (principal)
CPT/HCPCS: 99395

== ENCOUNTER 2023-04-20 10:10 | Inpatient (IN) | payer OTHER, SELFPAY ==
[2023-04-20] VITALS (7 sets, daily range): BP systolic 116–156; BP diastolic 67–95; PULSE 77–99; RESP 16–18; TEMP 36.2–37.2; O2SAT 95–99; BMI 45.7
--- NOTE | 2023-04-20 10:28 | ED.GENADULT ---
HPI - General Adult General Chief complaint: Abdominal Pain Stated complaint: abd pain back pain Time Seen by Provider: 04/20/23 10:27 Source: patient and family (patient's mother) Mode of arrival: ambulatory Limitations: no limitations History of Present Illness HPI narrative: Patient is a 22 year old assigned female at with a history of GERD on a PPI presenting to the emergency department today with RUQ abdominal pain. Patient states that over the last day she has had right upper quadrant abdominal pain that is not getting better. Patient states that she has been vomiting. Patient states that the pain feels better when curled over. Patient denies any dizziness, lightheadedness, fever, chills, blurry vision, double vision, loss of vision, chest pain, difficulty breathing, shortness of breath, back pain, night sweats, pain with urination, increased urinary frequency, increased urinary urgency, blood in her urine or stool, syncope or a near syncopal episode, recent trauma or falls, bowel incontinence, bladder incontinence, bowel retention, bladder retention, or any other complaints at this time. Onset (ago): day(s) Location: abdomen Severity: mild Severity scale (1-10): 5 Quality: aching Pain Consistency: constant Relieving factors: none Exacerbating factors: none Associated symptoms: nausea/vomiting Treatments prior to arrival: none Related Data Previous Rx's Medication Instructions Recorded pantoprazole 20 mg tablet,delayed 20 mg PO DAILY #90 tabs 12/09/22 release Allergies Allergy/AdvReac Type Severity Reaction Status Date / Time No Known Allergies Allergy Verified 04/20/23 10:12 Review of Systems Constitutional: Constitutional: Reports no additional constitutional complaints, Denies chills, Denies fever(s) and Denies night sweats Eyes: Eyes: Reports no additional eye complaints, Denies blurry vision, Denies change in vision, Denies diplopia, Denies eye discharge, Denies loss of vision and Denies eye pain ENT: Denies dizziness Cardiovascular: Cardiovascular: Reports no additional cardiovascular complaints, Denies chest pain, Denies lightheadedness, Denies Loss of Consciousness and Denies dyspnea Respiratory: Respiratory: Reports no additional respiratory complaints and Denies dyspnea Gastrointestinal: Gastrointestinal: Reports abdominal pain, Denies melena, Denies hematochezia, Denies change in bowel habits, Denies change in stool character, Denies diarrhea, Reports nausea and Reports vomiting (one episode this morning) Genitourinary: Genitourinary: Denies hematuria, Denies urinary frequency, Denies dysuria, Denies urinary incontinence, Denies urinary hesitancy and Denies urinary urgency Musculoskeletal: Musculoskeletal: Reports no additional musculoskeletal complaints, Denies numbness and Denies tingling Neurologic: Denies dizziness, Denies loss of vision, Denies numbness and Denies tingling Psychiatric: Psychiatric: Reports no additional psychiatric complaints Endocrine: Endocrine: Reports no additional endocrine complaints Hematologic/Lymphatic: Hematologic/Lymphatic: Reports no additional hematologic/lymphatic complaints Allergic/Immunologic: Allergic/Immunologic: Reports no additional allergic/immunologic complaints PMFSH Past Medical History Attestation statement: The following information was validated with the patient. (patient's information was validated by the patient's mother) Source: old records reviewed, obtained from family (patient's mother provided additional history and confirmed the history provided by the patient.) and nursing notes reviewed Medical History Morbid obesity with BMI of 40.0-44.9, adult GERD (gastroesophageal reflux disease) Social History Social History Housing: House Patient Tobacco Use Status: Never used Tobacco Smoked in Last 30 Days: No e-Cigarette/Vaping Use: Never Used Second Hand Smoke Exposure: No Use of substances other than those prescribed or required for medical reasons: No Advance Directives: No Advance Directives Information Provided: Yes Patient : No service: No Current occupational status: employed Current occupation: [employer] Current occupational exposures/hazards: No Sexual orientation: Straight/Heterosexual Gender identity: Female Cognitive needs: No Hearing needs: No Vision needs: No Physical Exam ED Vital Signs: Vital Signs - 24 hr 04/20/23 10:12 04/20/23 10:25 04/20/23 11:59 Temperature 99 F 97.5 F 97.8 F Pulse Rate 99 97 88 Respiratory Rate 18 18 18 Blood Pressure 146/95 H 127/78 126/72 Pulse Oximetry 99 98 95 Oxygen Delivery Method Room Air Room Air Room Air BMI result Body Mass Index 45.7 Const General: cooperative, no acute distress, alert and awake Nutritional Appearance: well nourished Orientation/consciousness: patient oriented x3 Limitations: no limitations HENMT Head: Yes normal to inspection and Yes atraumatic Ears: hearing grossly normal bilaterally and external ears normal General nose exam: Normal external nose present, no nasal discharge noted and no epistaxis Face and sinus: Yes normal facial exam, No abrasion and No laceration Mouth: Normal oral and palatal mucosa present, no drooling and no muffled voice Eyes General: appearance normal, both eyes and all related structures Periorbital: periorbital findings normal Eyelids: Yes eyelids normal Conjunctivae: conjunctivae normal Pupils: Equal, round and reactive pupils present EOM: EOMs intact bilaterally Neck Neck: Yes normal visual inspection, Yes full ROM and Yes no lymphadenopathy Chest Chest palpation & inspection: normal inspection of the chest Resp Effort & Inspection: normal respiratory effort and able to speak in complete sentences Auscultation: clear to auscultation bilaterally Cardio Rate: regular rate Rhythm: regular rhythm GI Inspection: Yes normal to inspection Palpation (GI): Soft to palpation, not firm, Tenderness to palpation present (GI) in the RUQ, no guarding and not rigid Neuro General: patient oriented x3 and moves all extremities Cranial nerves: Yes Equal, round and reactive pupils present Cognition (Neuro): normal cognition Motor exam (neuro): 5/5 motor strength present throughout Sensory Exam: Normal double simultaneous stimulation for sensation Coordination: [id number] test normal Extrem General: Yes normal to inspection, Yes full ROM and Yes capillary refill normal Psych Appearance: grossly normal Mental Status: mental status grossly normal Affect: normal affect Attitude: cooperative Thought process: Normal thought process present Thought content: Normal thought content present Insight: Good insight present (Psych) Medications Administered Discontinued Medications Generic Name Dose Route Start Last Admin Trade Name Geoffrey PRN Reason Stop Dose Admin Iohexol 85 ml 04/20/23 11:56 04/20/23 11:56 Iohexol 350 Mg/Ml 100 Ml Infus..Btl IV 04/20/23 11:57 85 ml ONCE ONE Administration Morphine Sulfate 4 mg 04/20/23 11:39 04/20/23 11:53 Morphine Sulfate 4 Mg/Ml Cartridge IVPUSH 04/20/23 11:40 4 mg ONCE ONE Administration Protocol Ondansetron HCl 4 mg 04/20/23 11:39 04/20/23 11:53 Ondansetron Hcl 4 Mg/2 Ml Vial IVPUSH 04/20/23 11:40 4 mg ONCE ONE Administration Medical Decision Making Medical Decision Making [facility] Narrative: Patient is a 22 year old assigned female at with no reported medical history presenting to the emergency department today with right upper quadrant abdominal pain. Patient's physical exam was as noted in the physical exam portion of this note. Patient's blood work showed an elevated WBC count of 18.7 but was otherwise unremarkable. Patient's abdominal/pelvis CT showed cholelithasis without wall thickening or pericholecystic fluid collection, a 2.4cm left ovarian cyst, and mild constipation. Patient was given IV morphine however, it did not help with the pain. Patient's clinical presentation is not consistent with sepsis (@1345). I consulted with the surgical team who agreed to admission with the patient on liquids until midnight and then NPO. I explained my physical exam findings as well as all test results to the patient and the patient's mother. I answered all questions asked by the patient and the patient's mother. Patient and the patient's mother verbalized agreement and understanding with this treatment plan and admission. Differential Diagnosis Differential Diagnoses: The differential diagnosis associated with the presentation includes Cholecystitis Choleangitis Cholelithiasis Abdominal pain Nausea Vomiting Admission/Observation Consideration of admission/observation: Escalation of care including admission/observation considered Patient admitted to the surgical service. Consult Healthcare Provider Management of the patient was discussed with: Cook Supervisor (spoke with the surgical team as noted in the MDM rationale portion of this note.) Lab Data [facility] Lab Attestation statement: I reviewed the patient's lab results. My interpretation of these results are in the MDM Rationale portion of this note. 04/20/23 10:42 04/20/23 10:42 Labs: Lab Results 04/20/23 04/20/23 Range/Units 10:42 10:42 WBC 18.7 H (4.8-10.8) X10*3/uL RBC 5.28 (4.20-5.50) X10*6/uL Hgb 14.0 (12.0-16.0) g/dl Hct 43.1 (37.0-47.0) % MCV 81.6 (80.0-98.0) fL MCH 26.5 L (27.0-33.0) pg MCHC 32.5 (31.0-35.0) g/dl RDW 13.8 (11.0-16.0) % Plt Count 537 H (160-400) X10*3/uL MPV 9.2 L (9.4-12.3) fL Immature Gran % (Auto) 0.4 (0.0-0.4) % Neut % (Auto) 87.9 H (45-73) % Lymph % (Auto) 8.7 L (20-40) % [place] % (Auto) 2.8 (2-11) % Eos % (Auto) 0.0 (0-4) % Baso % (Auto) 0.2 (0-2) % Lymph # (Auto) 1.6 (1.2-4.9) X10*3/uL [place] # (Auto) 0.5 (0.1-1.2) X10*3/uL Eos # (Auto) 0.0 (0.0-0.4) X10*3/uL Baso # (Auto) 0.0 (0.0-0.2) X10*3/uL Abs Immat Gran (auto) 0.08 H (0.00-0.03) X10*3/uL Absolute Neuts (auto) 16.5 H (2.0-8.3) x10*3/uL Absolute Nucleated RBC 0.000 (0.0-0.012) X10*3/uL Nucleated RBC % (auto) 0.0 (0.0-0.2) /100WBC PT 13.1 (11.1-13.3) SEC INR 1.1 (0.9-1.1) APTT 32.9 (26.0-36.4) SEC Sodium 139 (135-145) mmol/L Potassium 4.3 (3.3-5.1) mmol/L Chloride 104 (96-108) mmol/L Carbon Dioxide 22 (22-29) mmol/L Anion Gap 17 (12-20) BUN 18 H (9-16) mg/dL Creatinine 0.75 (0.5-1.4) mg/dL Estim Creat Clear Calc 137.7 Estimated GFR > 60 Random Glucose 135 H (60-115) mg/dL Calcium 10.3 H (8.4-10.2) mg/dL Magnesium 2.2 (1.6-2.6) mg/dL Total Bilirubin 0.3 (0.0-1.0) mg/dL AST 16 (5-31) U/L ALT 15 (0-31) U/L Alkaline Phosphatase 110 (39-117) U/L Total Protein 8.7 H (6.5-8.0) g/dL Albumin 4.7 (3.5-5.0) g/dL Lipase 10 Cancelled (8-78) U/L Beta HCG, Quant < 2 mIU/mL Influenza Type A (PCR) NEGATIVE (Negative) Influenza Type B (PCR) NEGATIVE (Negative) RSV RNA Qual (PCR) NEGATIVE (Negative) SARS-CoV-2 RNA (RT-PCR) NEGATIVE (Negative) Independent Interpretation I performed an independent interpretation of an: CT Scan Interpretation: My interpretation is in agreement with the radiologist's impression of this imaging study. EXAMINATION: CT ABDOMEN AND PELVIS WITH CONTRAST CLINICAL INFORMATION: Abdominal pain COMPARISON: None available. TECHNIQUE: Multidetector volumetric images were obtained from the superior aspect of the liver through the pubic symphysis following administration 85 mL of Omnipaque 350 intravenous contrast. Sagittal and coronal reformatted images were obtained on the technologist's workstation. Oral contrast: No This CT examination was performed using dose optimization techniques as appropriate, variously including the following: *Automated exposure control *Adjustment of mA and/or kV according to patient size (this includes techniques or standardized protocols for targeted exams where dose is matched to indication/reason for exam; i.e. extremities or head) *Use of iterative reconstruction technique DLP: 1117 mGy-cm FINDINGS: LUNG BASES: There is platelike atelectasis right middle lobe. The lung bases are clear. The heart size is normal. LIVER, GALLBLADDER, AND BILIARY TREE: The liver is normal in size, shape, and attenuation. No focal hepatic lesion or biliary ductal dilatation is present. There are dependent radiopaque gallstones without wall thickening or pericholecystic fluid collection. Punctate gallbladder wall calcification is seen along the posterior wall PANCREAS: Unremarkable. SPLEEN: Unremarkable. ADRENAL GLANDS: Unremarkable. KIDNEYS AND URETERS: The kidneys are normal in size, shape, and attenuation. No hydronephrosis, hydroureter, or calculi seen. No perinephric stranding. BLADDER: Unremarkable. GASTROINTESTINAL TRACT: There is scattered stool and gas seen throughout the colon without any significant distention. The small bowel loops are normal caliber. Appendix is normal caliber. No free air or free fluid seen. ABDOMINAL WALL: No significant hernia is appreciated. LYMPH NODES: Normal. VASCULAR: Unremarkable. PELVIC VISCERA: The uterus is anteverted and appears unremarkable. No free air or free fluid seen. Incidental finding of 2.4 cm lesion left adnexa likely ovarian cyst. OSSEOUS STRUCTURES: No aggressive lytic or sclerotic process seen. CT/CT abdomen pelvis w IV con IMPRESSION: 1. No acute intra-abdominal process seen. 2. Cholelithiasis without wall thickening or pericholecystic fluid collection. 3. Mild constipation. 4. Incidental finding of 2.4 cm lesion left adnexa likely ovarian cyst. Moderate constipation with no acute intra-abdominal process seen. Normal appendix. Fleischner guidelines were followed. Dictated By: Ayaan Barnett MD Signed By: Electronically signed by Ayaan Barnett MD 04/20/23 1303 Radiology Impression Discussion of test interpretation with radiology: I have reviewed the radiologist's reading. Independent Historian Clinical information obtained from an independent historian. History obtained from or confirmed by: Parent (patient's mother provided additional history and confirmed the history provided by the patient.) Critical Care Time Critical Care Time Critical Care Time: Yes Total Critical Care Time: 45 Attestation: I spent 45 minutes of Critical Care Time with this patient. This does not include time spent on separately reported billable procedures. Discharge Plan Discharge Clinical Impression: Cholelithiases Patient Disposition: Admitted As Inpatient
--- NOTE | 2023-04-20 10:58 | PC.NURSE ---
pt a&ox3, vss and up to date. pt comes in today d/t 10/10 RUQ pain that radiates to flank area bilaterally. pt also verbalizes dizziness/nausea/vomiting x1 time this am. pt denies any urinary symptoms or hx of kidney stones. pt went to urgent care this am where they sent her here because they were concerned about gallbladder. normoactive bs noted upon auscultation. RUQ/right flank area tender upon palpation. pt currently tearful while speaking w/ ED providers. 20gIV placed in right AC. labs drawn and sent to lab. pt aware that we need urine sample. pt aware of plan of care at this time. pt's mother bedside for support. call betancourt placed within reach.
[2023-04-20 11:11] LABS: Alanine Aminotransferase 15 U/L (0-31); Albumin Level 4.7 g/dL (3.5-5.0); Alkaline Phosphatase 110 U/L (39-117); Anion Gap 17 (12-20); Aspartate Amino Transferase 16 U/L (5-31); Bilirubin Total 0.3 mg/dL (0.0-1.0); Blood Urea Nitrogen 18 mg/dL (9-16); Calcium 10.3 mg/dL (8.4-10.2); Carbon Dioxide 22 mmol/L (22-29); Chloride 104 mmol/L (96-108); Creatinine Clr Calc Pharmacy 137.7; Estimated Glomerular Filt Rate > 60; Glucose Random 135 mg/dL (60-115); HCG Quantitative < 2 mIU/mL; Lipase 10 U/L (8-78); Magnesium 2.2 mg/dL (1.6-2.6); Potassium 4.3 mmol/L (3.3-5.1); Sodium 139 mmol/L (135-145); Total Protein 8.7 g/dL (6.5-8.0)
--- NOTE | 2023-04-20 11:26 | PC.NURSE ---
pt requesting pain medication - provider aware. will administer when able.
--- NOTE | 2023-04-20 11:37 | PC.NURSE ---
pt currently being transferred to CT.
--- NOTE | 2023-04-20 12:01 | PC.NURSE ---
pt returned from CT. pt medicated per provider order. will reassess pain level shortly. lights dimmed with call betancourt placed within reach. family bedside for support.
--- NOTE | 2023-04-20 13:58 | PM.HPGS ---
History of Present Illness History of Present Illness Date of Service: 04/20/23 <Alexus Merlos PA-C - Last Filed: 04/20/23 14:13> 04/20/23 <Alessio Bruno MD - Last Filed: 04/20/23 14:57> Chief complaint: acute cholecystitis <Alexus Merlos PA-C - Last Filed: 04/20/23 14:13> Narrative: Kristina Sharif is a 22 year old female with PMH of GERD who presented to the ED with complaints of RUQ abdominal pain. She reports pain started last night around 11pm and awoke her out of sleep. The pain is located in the RUQ/epigastric area and radiates to the right upper back. It is sharp and severe in nature. It was associated with nausea and vomiting. She reports several similar episodes of the last 6 months. She was diagnosed with GERD initially and given pantoprozole with no improvement in her symptoms. The episodes are not provoked by food intake. The previous episodes all resolved over the course of an hour but this one persisted and she came to the ED for evaluation. Work up in the ED included CBC, BMP, LFTs which was significant for a leukocytosis of 18. CT scan abd/pelvis was obtained which showed gallstones without wall thickening or pericholecystic fluid collection. She received morphine in the ED and continues to have severe pain. She denies fever, chills, change in skin color, urine or stool color. <Alexus Merlos PA-C - Last Filed: 04/20/23 14:13> Review of Systems Constitutional: Constitutional: Denies chills and Denies fever(s) <Alexus Merlos PA-C - Last Filed: 04/20/23 14:13> ENT: Denies dizziness <CARROL De Los Santos Last Filed: 04/20/23 14:13> Cardiovascular: Cardiovascular: Denies chest pain and Denies dyspnea <CARROL De Los Santos Last Filed: 04/20/23 14:13> Respiratory: Respiratory: Denies dyspnea <CARROL De Los Santos Last Filed: 04/20/23 14:13> Gastrointestinal: Gastrointestinal: Reports as per HPI, Reports abdominal pain, Denies melena, Denies hematochezia, Denies change in stool character, Denies diarrhea, Reports nausea and Reports vomiting <Alexus Merlos PA-C Last Filed: 04/20/23 14:13> Genitourinary: Genitourinary: Denies hematuria and Denies dysuria <Alexus Merlos PA-C - Last Filed: 04/20/23 14:13> Integumentary/Breasts: Skin/Breast: Denies rash and Denies jaundice <Alexus Merlos PA-C - Last Filed: 04/20/23 14:13> Neurologic: Denies dizziness <Alexus Merlos PA-C Last Filed: 04/20/23 14:13> [facility] Past Medical History Medical History: Medical History Morbid obesity with BMI of 40.0-44.9, adult GERD (gastroesophageal reflux disease) <CARROL De Los Santos Last Filed: 04/20/23 14:13> Social History Social History: Social History Housing: House Patient Tobacco Use Status: Never used Tobacco Smoked in Last 30 Days: No e-Cigarette/Vaping Use: Never Used Second Hand Smoke Exposure: No Use of substances other than those prescribed or required for medical reasons: No Advance Directives: No Advance Directives Information Provided: Yes Nutrition Risks: No Nutritional Risk Patient : No service: No Current occupational status: employed Current occupation: [employer] Current occupational exposures/hazards: No Sexual orientation: Straight/Heterosexual Gender identity: Female Cognitive needs: No Hearing needs: No Vision needs: No <CARROL De Los Santos Last Filed: 04/20/23 14:13> Meds Allergies/Adverse reactions: Allergies Allergy/AdvReac Type Severity Reaction Status Date / Time No Known Allergies Allergy Verified 04/20/23 10:12 <CARROL De Los Santos Last Filed: 04/20/23 14:13> Physical Exam Vital Signs: Vital Signs: Last Vital Signs Temp 97.8 F 04/20/23 11:59 Pulse 88 04/20/23 11:59 Resp 18 04/20/23 11:59 BP 126/72 04/20/23 11:59 Pulse Ox 95 04/20/23 11:59 O2 Del Method Room Air 04/20/23 11:59 BMI result Body Mass Index 45.7 <[facility] Last Filed: 04/20/23 14:13> Const: General: no acute distress and alert <[facility] Last Filed: 04/20/23 14:13> Orientation/consciousness: patient oriented x3 <[facility] Last Filed: 04/20/23 14:13> Resp: Effort & Inspection: normal respiratory effort <[facility] Last Filed: 04/20/23 14:13> GI: Other: corpulent abdomen <[facility] Last Filed: 04/20/23 14:13> Inspection: No scar <AlexusCAROL [facility]Sal[facility] Last Filed: 04/20/23 14:13> Palpation (GI): Soft to palpation, Tenderness to palpation present (GI) in the epigastrum, in the RUQ and Plunkett's sign positive, no guarding and not rigid <[facility] Last Filed: 04/20/23 14:13> Percussion: Yes normal to percussion <[facility] Last Filed: 04/20/23 14:13> Skin: General skin exam: no rashes or lesions noted and no jaundice <[facility] Last Filed: 04/20/23 14:13> Neuro: General: patient oriented x3 and moves all extremities <[facility] Last Filed: 04/20/23 14:13> Extrem: General: Yes no clubbing, cyanosis or edema <[facility] Last Filed: 04/20/23 14:13> Results Results Labs: Short CBC 04/20/23 Range/Units 10:42 WBC 18.7 H (4.8-10.8) X10*3/uL Hgb 14.0 (12.0-16.0) g/dl Hct 43.1 (37.0-47.0) % Plt Count 537 H (160-400) X10*3/uL BMP 04/20/23 10:42 Sodium 139 Potassium 4.3 Chloride 104 Carbon Dioxide 22 BUN 18 H Creatinine 0.75 Calcium 10.3 H Liver Function 04/20/23 Range/Units 10:42 Total Bilirubin 0.3 (0.0-1.0) mg/dL AST 16 (5-31) U/L ALT 15 (0-31) U/L Alkaline Phosphatase 110 (39-117) U/L Albumin 4.7 (3.5-5.0) g/dL <CARROL De Los Santos Last Filed: 04/20/23 14:13> Abdomen CT scan report/results: report reviewed and image reviewed <CARROL De Los Santos Last Filed: 04/20/23 14:13> Assessment and Plan (1) Acute cholecystitis: Status: Acute <CARROL De Los Santos Last Filed: 04/20/23 14:13> 22 year old female with RUQ abd pain and vomiting with RUQ tenderness, plunkett sign on exam, leukocytosis and gallstones on imaging without wall thickening or pericholecystic fluid. Clinical picture suggestive of biliary colic, likely early acute cholecystitis with gallstone impacted at the gallbladder neck. She is admitted to the surgical service for further treatment. Treatment options including laparoscpic cholecystectomy, possible open versus observation and antibiotic therapy were discussed with the patient. Risks, benefits, alternatives of laparoscopic possible open cholecystectomy were reviewed with the patient including but not limited to bleeding, infection, numbness, pain, poor healing, injury to the liver, bowel or bile ducts, leak, retained stones and the patient wishes to proceed.?She is added onto the OR schedule for tomorrow. She is started on IV zosyn empirically, IVF, PRN analgesics for pain, NPO after midnight. <CARROL De Los Santos Last Filed: 04/20/23 14:13> Time Spent With Patient Time: Total time managing care of this patient today ____ minutes. <CARROL De Los Santos Last Filed: 04/20/23 14:13> Quality Stroke Does the patient have a stroke diagnosis?: No <Alexus Merlos PA-C - Last Filed: 04/20/23 14:13> VTE Prior VTE?: No <Alexus Merlos PA-C - Last Filed: 04/20/23 14:13> VTE Risk Level:: Surgical - low <Alexus Merlos PA-C - Last Filed: 04/20/23 14:13> VTE Device Contraindication: N/A - Device Ordered <Alexus Merlos PA-C - Last Filed: 04/20/23 14:13> VTE Drug Contraindication: Treatment Not Indicated <Alexus Merlos PA-C - Last Filed: 04/20/23 14:13> Procedures Date of Service Date of Service: 04/20/23 <Alexus Merlos PA-C - Last Filed: 04/20/23 14:13> 04/20/23 <Alessio Bruno MD - Last Filed: 04/20/23 14:57>
--- NOTE | 2023-04-20 14:27 | PC.NURSE ---
pt c/o 8/10 RUQ pain at this time. pt medicated per provider order. pt resting comfortably in no apparent distress w/ the lights dimmed. family bedside for support. call betancourt placed within reach.
--- NOTE | 2023-04-20 14:39 | PHA.MEDREC ---
Pharmacy Consult ? Medication Reconciliation Pharmacy has completed the medication reconciliation.
--- NOTE | 2023-04-20 14:56 | PC.NURSE ---
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
--- NOTE | 2023-04-20 15:51 | PC.NURSE ---
Report given to Kaya RUBALCAVA
[2023-04-21] VITALS (10 sets, daily range): BP systolic 104–129; BP diastolic 62–81; PULSE 78–95; RESP 14–20; TEMP 36.1–37.5; O2SAT 92–99
--- NOTE | 2023-04-21 08:21 | PM.PNGS ---
Subjective Subjective Date of Service: 04/21/23 Interval history: Feels a little better this morning. Still has some RUQ pain but improved. Physical Exam Vital Signs: Vital Signs: Last Vital Signs Temp 98.0 F 04/21/23 07:48 Pulse 91 04/21/23 07:48 Resp 16 04/21/23 07:48 BP 118/67 04/21/23 07:48 Pulse Ox 99 04/21/23 07:48 O2 Del Method Room Air 04/21/23 07:48 BMI result Body Mass Index 45.7 Const: General: comfortable, no acute distress and alert Orientation/consciousness: patient oriented x3 GI: Inspection: No distended Palpation (GI): Soft to palpation and Tenderness to palpation present (GI) in the RUQ Skin: General skin exam: no rashes or lesions noted Neuro: General: patient oriented x3 Objective Data Active Medications Acetaminophen (Acetaminophen 325 Mg Tablet) 650 mg PO Q6H PRN PRN Reason: Pain, Mild (Pain Scale 1-3) Docusate Sodium (Docusate Sodium 100 Mg Capsule) 100 mg PO DAILY PRN PRN Reason: Constipation Hydromorphone HCl (Hydromorphone Hcl 1 Mg/Ml Syringe) 0.5 mg IVPUSH Q4H PRN; Protocol PRN Reason: Pain, Severe (Pain Scale 7-10) Last Admin: 04/21/23 07:56 Dose: 0.5 mg Documented By: JAREN Piperacillin Sod/Tazobactam (Sod 3.375 gm/ Sodium Chloride) 50 mls @ 100 mls/hr IV Q6H [facility] Last Admin: 04/21/23 07:56 Dose: 100 mls/hr Documented By: JAREN Lactated Ringer's (Lr) 1,000 mls @ 100 mls/hr IVCONT .Q10H [facility] Last Admin: 04/21/23 01:05 Dose: 100 mls/hr Documented By: DAHLIA Ketorolac Tromethamine (Ketorolac Tromethamine 30 Mg/Ml Vial) 30 mg IVPUSH Q6H PRN PRN Reason: Pain, Mild (Pain Scale 1-3) Stop: 04/25/23 13:50 Melatonin (Melatonin 3 Mg Tablet) 6 mg PO BEDTIME PRN PRN Reason: Insomnia Ondansetron HCl (Ondansetron Hcl 4 Mg/2 Ml Vial) 4 mg IVPUSH Q8H PRN PRN Reason: Nausea and Vomiting Oxycodone HCl (Oxycodone Hcl Immed Release 5 Mg Tablet) 5 mg PO Q4H PRN PRN Reason: Pain, Moderate(Pain Scale 4-6) Last Admin: 04/20/23 18:02 Dose: 5 mg Documented By: KARIE Sodium Chloride (0.9 % Sodium Chloride Flush 3 Ml Syringe) 3 ml IVFLUSH QSHIFT [facility] Last Admin: 04/21/23 07:43 Dose: Not Given Documented By: JAREN Non-Admin Reason: IV Running Labs 04/20/23 10:42 04/20/23 10:42 Labs: Laboratory Results - last 24 hr 04/20/23 04/20/23 04/20/23 10:42 10:42 14:15 MCV 81.6 MCH 26.5 L MCHC 32.5 RDW 13.8 Plt Count 537 H MPV 9.2 L Immature Gran % (Auto) 0.4 Neut % (Auto) 87.9 H Lymph % (Auto) 8.7 L [place] % (Auto) 2.8 Eos % (Auto) 0.0 Baso % (Auto) 0.2 Lymph # (Auto) 1.6 [place] # (Auto) 0.5 Eos # (Auto) 0.0 Baso # (Auto) 0.0 Abs Immat Gran (auto) 0.08 H Absolute Neuts (auto) 16.5 H Absolute Nucleated RBC 0.000 Nucleated RBC % (auto) 0.0 PT 13.1 INR 1.1 APTT 32.9 Anion Gap 17 Estim Creat Clear Calc 137.7 Estimated GFR > 60 Random Glucose 135 H Calcium 10.3 H Magnesium 2.2 Total Bilirubin 0.3 AST 16 ALT 15 Alkaline Phosphatase 110 Total Protein 8.7 H Albumin 4.7 Lipase 10 Cancelled Beta HCG, Quant < 2 Urine Color Yellow Urine Appearance Clear Urine pH 6.0 Ur Specific [place] >= 1.030 H Urine Protein Negative Urine Glucose (UA) Negative Urine Ketones 15 Urine Blood Negative Urine Nitrite Negative Ur Leukocyte Esterase Negative Urine Opiates Screen POSITIVE H Urine Fentanyl Screen Not Detected Ur Barbiturates Screen Not Detected Ur Phencyclidine Scrn Not Detected Ur Amphetamines Screen Not Detected U Benzodiazepines Scrn Not Detected Urine Cocaine Screen Not Detected U Marijuana (THC) Screen Not Detected Influenza Type A (PCR) NEGATIVE Influenza Type B (PCR) NEGATIVE RSV RNA Qual (PCR) NEGATIVE SARS-CoV-2 RNA (RT-PCR) NEGATIVE Procedures Date of Service Date of Service: 04/21/23 Progress Note: A&P Assessment and plan (1) Acute cholecystitis: Status: Acute (2) Cholelithiases: Status: Acute Plan 22 year old female admitted with acute calculous cholecystitis. On IV zosyn. Plan for lap jone, possible open today. Patient and family comfortable with plan, all questions answered. Time Spent With Patient Time: Total time managing care of this patient today ____ minutes. Quality Stroke Does the patient have a stroke diagnosis?: No VTE Prior VTE?: No VTE Risk Level:: Surgical - low VTE Device Contraindication: N/A - Device Ordered VTE Drug Contraindication: Treatment Not Indicated
--- NOTE | 2023-04-21 10:47 | MHC.CM.PN ---
pt lives with family will not need services when dcd
--- NOTE | 2023-04-21 11:52 | HO.ANESPROP2 ---
[facility] Active Problems Active Problems: All Active Problems (Updated 04/20/23 @ 14:23 by CAROL Mcdowell) Cholelithiases (Acute) Acute cholecystitis (Acute) COVID-19 (Acute) Thrombocythemia (Acute) Leukocytosis (Acute) GERD (gastroesophageal reflux disease) (Acute) Screening for cervical cancer (Acute) Physical exam (Acute) Past Medical History Medical History Morbid obesity with BMI of 40.0-44.9, adult GERD (gastroesophageal reflux disease) Family History Family history of problems with anesthesia: No Surgical History History of Problems with Anesthesia: No Social History Social History Household Members: Family Household Members Other:: Mother and Father. Housing: House Do you presently have visiting nurse or other home services: No Patient Tobacco Use Status: Never used Tobacco e-Cigarette/Vaping Use: Never Used Second Hand Smoke Exposure: No service: No Current occupational status: employed Current occupation: [employer] Current occupational exposures/hazards: No Sexual orientation: Straight/Heterosexual Gender identity: Female Cognitive needs: No Hearing needs: No Vision needs: No Meds Allergies Allergy/AdvReac Type Severity Reaction Status Date / Time No Known Allergies Allergy Verified 04/21/23 11:36 Active Medications: Current Medications Acetaminophen (Acetaminophen 325 Mg Tablet) 650 mg PO Q6H PRN PRN Reason: Pain, Mild (Pain Scale 1-3) Docusate Sodium (Docusate Sodium 100 Mg Capsule) 100 mg PO DAILY PRN PRN Reason: Constipation Hydromorphone HCl (Hydromorphone Hcl 1 Mg/Ml Syringe) 0.5 mg IVPUSH Q4H PRN; Protocol PRN Reason: Pain, Severe (Pain Scale 7-10) Last Admin: 04/21/23 07:56 Dose: 0.5 mg Piperacillin Sod/Tazobactam (Sod 3.375 gm/ Sodium Chloride) 50 mls @ 100 mls/hr IV Q6H [facility] Last Infusion: 04/21/23 08:45 Dose: Infused Lactated Ringer's (Lr) 1,000 mls @ 100 mls/hr IVCONT .Q10H [facility] Last Infusion: 04/21/23 11:18 Dose: Infused Ketorolac Tromethamine (Ketorolac Tromethamine 30 Mg/Ml Vial) 30 mg IVPUSH Q6H PRN PRN Reason: Pain, Mild (Pain Scale 1-3) Stop: 04/25/23 13:50 Melatonin (Melatonin 3 Mg Tablet) 6 mg PO BEDTIME PRN PRN Reason: Insomnia Ondansetron HCl (Ondansetron Hcl 4 Mg/2 Ml Vial) 4 mg IVPUSH Q8H PRN PRN Reason: Nausea and Vomiting Oxycodone HCl (Oxycodone Hcl Immed Release 5 Mg Tablet) 5 mg PO Q4H PRN PRN Reason: Pain, Moderate(Pain Scale 4-6) Last Admin: 04/20/23 18:02 Dose: 5 mg Sodium Chloride (0.9 % Sodium Chloride Flush 3 Ml Syringe) [facility] Last Admin: 04/21/23 07:43 Dose: Not Given Exam Exam Date and Time: April 21, 2023 1152 Height,Weight and Vital Signs: Height 5 ft 2 in Weight 113.398 kg Last Vital Signs Temp 97.9 F 04/21/23 11:17 Pulse 95 04/21/23 11:17 Resp 18 04/21/23 11:17 BP 116/77 04/21/23 11:17 Pulse Ox 98 04/21/23 11:17 O2 Del Method Room Air 04/21/23 11:17 Pertinent Lab Results Pertinent Lab Results: Laboratory Tests 04/20/23 04/20/23 04/20/23 10:42 10:42 14:15 WBC 18.7 H RBC 5.28 Hgb 14.0 Hct 43.1 MCV 81.6 MCH 26.5 L MCHC 32.5 RDW 13.8 Plt Count 537 H MPV 9.2 L Immature Gran % (Auto) 0.4 Neut % (Auto) 87.9 H Lymph % (Auto) 8.7 L [place] % (Auto) 2.8 Eos % (Auto) 0.0 Baso % (Auto) 0.2 Lymph # (Auto) 1.6 [place] # (Auto) 0.5 Eos # (Auto) 0.0 Baso # (Auto) 0.0 Abs Immat Gran (auto) 0.08 H Absolute Neuts (auto) 16.5 H Absolute Nucleated RBC 0.000 Nucleated RBC % (auto) 0.0 PT 13.1 INR 1.1 APTT 32.9 Sodium 139 Potassium 4.3 Chloride 104 Carbon Dioxide 22 Anion Gap 17 BUN 18 H Creatinine 0.75 Estim Creat Clear Calc 137.7 Estimated GFR > 60 Random Glucose 135 H Calcium 10.3 H Magnesium 2.2 Total Bilirubin 0.3 AST 16 ALT 15 Alkaline Phosphatase 110 Total Protein 8.7 H Albumin 4.7 Lipase 10 Cancelled Beta HCG, Quant < 2 Urine Color Yellow Urine Appearance Clear Urine pH 6.0 Ur Specific [place] >= 1.030 H Urine Protein Negative Urine Glucose (UA) Negative Urine Ketones 15 Urine Blood Negative Urine Nitrite Negative Ur Leukocyte Esterase Negative Urine Opiates Screen POSITIVE H Urine Fentanyl Screen Not Detected Ur Barbiturates Screen Not Detected Ur Phencyclidine Scrn Not Detected Ur Amphetamines Screen Not Detected U Benzodiazepines Scrn Not Detected Urine Cocaine Screen Not Detected U Marijuana (THC) Screen Not Detected Influenza Type A (PCR) NEGATIVE Influenza Type B (PCR) NEGATIVE RSV RNA Qual (PCR) NEGATIVE SARS-CoV-2 RNA (RT-PCR) NEGATIVE Airway Mallampati Class: II TM Dist: >3cm Neck ROM: Full Assessment and Plan Assessment Anesthesia Assessment: Anesthesia Plan Discussed and Chart Reviewed Final Anesthetic Review Family History of Problems with Anesthesia: No History of Problems with Anesthesia: No NPO: Yes ASA Class: III Final Preanesthetic Review: No Changes in Pt Med Stat, Meds/Allgs Chart Reviewed, Consent Obtained/Reviewed and Anes Risks/Benef Reviewed Patient Risk: Intermediate Procedure Risk: Intermediate Anesthetic Plan Anesthetic Plan: GA Disposition: Standard PACU
--- NOTE | 2023-04-21 13:10 | W.PM.OPN ---
Operative Note Operative Note Date of Service: 04/21/23 Narrative: Preoperative diagnosis: [] Acute cholecystitis Postop diagnosis: [] Acute phlegmonous hydrops of gallbladder Procedure [] laparoscopic cholecystectomy Surgeon: [] Damion Manager Utilization Management: [] Chelita Type of Anesthesia: [] General Indication for surgery: [] Markedly edematous phlegmonous hydrops of gallbladder. Omental adhesions to the gallbladder. Markedly intrahepatic gallbladder. Very corpulent abdomen. Findings: [] Patient brought to the operating room, placed on operative table in supine position, after adequate level of general anesthesia was induced, the patient's abdomen which is very corpulent was prepped and draped in usual sterile fashion. Using a supraumbilical curvilinear incision, Peter technique was used to insufflate the abdominal cavity to 15 mm of CO2. Markedly turgid, phlegmonous Gallbladder was initially decompressed within aspirating device and then grasped using laparoscopic graspers, and retracted superiorly and laterally. Omental adhesions were swept off the gallbladder where it's hilum was approached. Cystic artery and cystic duct were each identified, circumferentially skeletonized, each traced directly into the gallbladder and critical view obtained. Each was clipped proximally x2, distally x1, and transected. Markedly intrahepatic gallbladder was then cauterized from the gallbladder fossa using Bovie. Specimen was placed in an Endo-Catch bag, a retrieved through the umbilical port. The abdominal cavity was copiously irrigated, and secured hemostasis. All ports removed under direct laparoscopic view. Wounds were closed in the following manner; umbilical wound has fascia reapproximated using interrupted 0 Vicryl sutures. Skin wounds were closed using subcuticular 4-0 Vicryl suture followed by Steri-Strips and sterile dressings. Wounds were infiltrated 0.5% Marcaine at completion. Sponge, needle, and instrument counts reported correct. Patient tolerated the procedure well and emerged anesthesia stable condition. EBL minimal
--- NOTE | 2023-04-25 13:50 | PM.DS ---
DS: Providers Provider Date of Service: 04/21/23 Date of admission: 04/20/23 13:51 Date of discharge: 04/21/23 Primary care physician: PEDRO Yancey Attending physician on admission: Alessio Bruno Attending physician on discharge: Alessio Bruno DS: Diagnosis Discharge Diagnosis (1) Acute cholecystitis: Status: Acute (2) Cholelithiases: Status: Acute DS: Summary Hospital Course Hospital Course: HPI AT ADMISSION: Kristina Sharif is a 22 year old female with PMH of GERD who presented to the ED with complaints of RUQ abdominal pain. She reports pain started last night around 11pm and awoke her out of sleep. The pain is located in the RUQ/epigastric area and radiates to the right upper back. It is sharp and severe in nature. It was associated with nausea and vomiting. She reports several similar episodes of the last 6 months. She was diagnosed with GERD initially and given pantoprozole with no improvement in her symptoms. The episodes are not provoked by food intake. The previous episodes all resolved over the course of an hour but this one persisted and she came to the ED for evaluation. Work up in the ED included CBC, BMP, LFTs which was significant for a leukocytosis of 18. CT scan abd/pelvis was obtained which showed gallstones without wall thickening or pericholecystic fluid collection. She received morphine in the ED and continues to have severe pain. She denies fever, chills, change in skin color, urine or stool color. Picture suggestive of acute cholecystitis. HOSPITAL COURSE: She was admitted to the surgical service for further treatment of the acute cholecystitis. She wanted to proceed with laparoscopic cholecystectomy and was added onto the OR schedule for the following day. On 04/21/23, a laparoscopic cholecystectomy was performed by Dr. Bruno without complication. The patient tolerated the procedure well. She had an uncomplicated recovery course. She felt well following the procedure and was tolerating a solid diet without nausea or vomiting. She was out of bed without difficulty. Her abdomen was benign with clean dressings. She felt ready for discharge and was discharged to home on 04/21/23 in stable condition. She is to follow up in the office in 1 week. Status at Discharge Functional status at discharge: independent ambulation Overall status at discharge: patient is progressing back to baseline Time Spent with Patient Time attestation: Total time managing care of this patient today ____ minutes. Discharge coordination time: Less than 30 minutes Quality: Safe Use of Opioids Does Pt have an Active Cancer Diagnosis on the Problem List?: No Quality: Stroke Does the patient have a stroke diagnosis?: No Physical Exam Vital Signs: Vital Signs: Last Vital Signs Temp 97.2 F 04/21/23 15:05 Pulse 80 04/21/23 15:05 Resp 18 04/21/23 15:05 BP 106/62 04/21/23 15:05 Pulse Ox 93 04/21/23 15:05 O2 Del Method Room Air 04/21/23 15:05 O2 Flow Rate 4 04/21/23 13:11 BMI result Body Mass Index 45.7 Const: General: comfortable, no acute distress and alert Orientation/consciousness: patient oriented x3 GI: Inspection: No distended and Yes incision (dressings c/d/i) Palpation (GI): Soft to palpation Neuro: General: patient oriented x3 DS: Data Data Completed and Pending Completed studies during hospitalization [Text1]: Procedures Resection of Gallbladder, Percutaneous Endoscopic Approach (04/20/23) Pending studies at discharge: Pending at discharge 04/21/23 12:34 Surgical [PTH] Routine Discharge Plan Discharge Anticipated Discharge Date/Time: 04/21/23 13:04 Patient Disposition: Home, Self-Care Discharge Diagnosis: acute cholecystitis Referrals: Roderick Cantor FNP- [Primary Care Provider] - 1 Week Alessio Bruno MD [Physician] - 1 Week Discharge Medications: New oxycodone 5 mg tablet 5 mg PO Q4H PRN (Reason: pain (scale score 7-10)) Qty: 24 0RF Rx Instructions: Partial Fill upon patient request. hydrocodone-acetaminophen 5-325 mg tablet 1 tab PO Q4-6H PRN (Reason: pain) Qty: 30 0RF Rx Instructions: Partial Fill upon patient request. Continued pantoprazole 20 mg tablet,delayed release (DR/EC) 20 mg PO DAILY Qty: 90 0RF Discharge Orders: Discharge Order (Routine); Ordered 04/21/23 Ordered By: Alessio Bruno Diet: Advance to usual diet Activity on Discharge: No heavy lifting Stand Alone Forms: Patient Portal Discharge page, Work/School Release Activity Restrictions/Additional Instructions: Apply an ice pack for short intervals (20 minutes on, followed by at least 20 minutes off) for the first 2 days. Do not apply heat. Do not use creams, lotions, or topical antibiotics. These can cause infection or allergic reaction. Ok to shower 48 hours after your surgery. Remove dressings in 2 days and replace as needed. You have steri strips (small white cloth strips) covering your incision- these will fall off ~1 week. Follow up in office with Dr. Bruno in 1 week. ([phone]) No heavy lifting (>10lbs) or strenuous activity! Call Your Doctor If: -Your temperature exceeds 101.5? F -You experience excessive pain or swelling -You have an unexpected reaction to medication -You have excessive bleeding -You experience continued vomiting/nausea -Your incision begins to separate -Your incision shows signs of infection such as increased redness, swelling, excessive pain, drainage (light blood or clear fluid is normal) or heat Care Plan Goals: Return to baseline health and resume normal activities following recovery period. Health Concerns: acute cholecystitis Plan of Treatment: s/p laparoscopic cholecystectomy F/u in office in 1 week Assessment: Doing well post op. Discharge Date/Time: 04/21/23 19:30
== END 2023-04-21 19:30 | disposition home or self-care (01) | DRG 263 ==
LOC: HO.ED 13:50 → HO.EDOVER 14:02 → HO.S3 14:47
PROVIDERS: Physician Assistant Medical; Surgery; Admitting Provider Physician Assistant Surgical; Emergency Provider Emergency Medicine; PCP Nurse Practitioner Family; Visit Provider Physician Assistant Surgical
PROC: 0FT44ZZ Resection of Gallbladder, Percutaneous Endoscopic Approach (ICD-10-PCS; CPT 47562; principal; 2023-04-21 13:00)
DX: K80.00 Calculus of gallbladder with acute cholecystitis without obstruction (principal); E66.01 Morbid (severe) obesity due to excess calories; K82.8 Other specified diseases of gallbladder; K21.9 Gastro-esophageal reflux disease without esophagitis; Z68.42 Body mass index [BMI] 45.0-49.9, adult; Z20.822 Contact with and (suspected) exposure to COVID-19
CPT/HCPCS: 47562; 0241U; 36415; 74177; 80053; 80307; 81003; 83690; 83735; 84702; 85025; 85610; 85730; 88304; 99285; J1100; J1170; J1885; J2250; J2270; J2405; J2543; J3010; Q9967

== ENCOUNTER → 2023-04-20 13:51 | Outpatient (BNV) | payer OTHER, SELFPAY | PROVIDERS: Admitting Provider Physician Assistant Surgical; Emergency Provider Emergency Medicine; PCP Nurse Practitioner Family; Visit Provider Physician Assistant Surgical | DX: K81.0 Acute cholecystitis (principal) | CPT/HCPCS: 47562; 99024; 99222 ==

== ENCOUNTER 2023-04-27 14:58 | Emergency (ER) | payer OTHER, SELFPAY ==
--- NOTE | ~2023-04-27 | CT_ITS ---
EXAMINATION: CT ABDOMEN AND PELVIS WITH CONTRAST CLINICAL INFORMATION: Right upper quadrant pain, post gallbladder removal. COMPARISON: CT abdomen/pelvis 04/20/2023. TECHNIQUE: Multidetector volumetric images were obtained from the superior aspect of the liver through the pubic symphysis following administration 85 mL of Omnipaque 350 intravenous contrast. Sagittal and coronal reformatted images were obtained on the technologist's workstation. Oral contrast: No This CT examination was performed using dose optimization techniques as appropriate, variously including the following: *Automated exposure control *Adjustment of mA and/or kV according to patient size (this includes techniques or standardized protocols for targeted exams where dose is matched to indication/reason for exam; i.e. extremities or head) *Use of iterative reconstruction technique DLP: 1157 and 262 mGy-cm FINDINGS: LUNG BASES: Bibasilar subsegmental atelectasis. LIVER, GALLBLADDER, AND BILIARY TREE: Liver is normal in size, shape and attenuation without suspicious focal lesion. Postoperative changes from recent cholecystectomy with small amount of free fluid measuring higher than simple fluid in attenuation (up to 44 Hounsfield units) layering in the postoperative bed. No organized collection. Increased mild nonspecific extrahepatic biliary ductal dilatation, CBD measures 0.9 cm and cystic duct measures 0.3 cm (coronal image 38 and 39, series 6). Minimal intrahepatic biliary ductal dilatation is similar to slightly increased. No discrete obstructive abnormalities such as choledocholithiasis. PANCREAS: Unremarkable. SPLEEN: Unremarkable. ADRENAL GLANDS: Unremarkable. KIDNEYS AND URETERS: The kidneys are normal in size, shape, and attenuation. No hydronephrosis, hydroureter, or calculi seen. No perinephric stranding. BLADDER: Unremarkable. GASTROINTESTINAL TRACT: The stomach and the small bowel are nondilated. Normal appendix. Colonic diverticulosis without significant pericolonic fat stranding or free fluid. No bowel obstruction. ABDOMINAL WALL: Free fluid and stranding in the umbilical region with a few foci of air (7:55). No organized collection. No significant hernia. Single focus of air in between the muscles of the right anterior abdominal wall (4:324). LYMPH NODES: No lymphadenopathy. VASCULAR: Normal caliber abdominal aorta. Main portal vein is patent. PELVIC VISCERA: Unremarkable. OSSEOUS STRUCTURES: Unremarkable. CT/CT abdomen pelvis w IV con IMPRESSION: 1. Postoperative changes from recent cholecystectomy with a small amount of fluid in the postoperative bed measuring higher than simple attenuation suggestive of postoperative blood products. No organized collection. Attention on follow-up is recommended. 2. Increased mild nonspecific extrahepatic biliary ductal dilatation. Further evaluation with MRCP could be obtained as clinically deemed appropriate. 3. Free fluid and stranding in the umbilical region with a few foci of air most likely related with one of the surgical insertion sites, recommend correlation with physical examination. 4. Diverticulosis without evidence to suspect acute diverticulitis.
[2023-04-27 15:13] VITALS: BP 114/67; BP 122/78; PULSE 104; PULSE 93; RESP 16; TEMP 36.5; O2SAT 97; O2SAT 99; BMI 46.9
--- NOTE | 2023-04-27 16:02 | ED.ABDPAIN ---
HPI - Abdominal Pain General Chief Complaint: Abdominal Pain Stated Complaint: ABD PAIN S/P GB SURG RECENTLY PER EMS Time Seen by Provider: 04/27/23 15:33 Source: patient, family and old records reviewed Mode of arrival: EMS Limitations: no limitations History of Present Illness HPI narrative: 22 yo female PMH of GERD s/p lap jone on 04/21 did well post operatively and DC home has been home x 1 week taking hydrocodone still for pain now reports wosrening pain in RUQ with constipation and no flatus passed hard viji today but no gas. No n/v. Pain worse this AM back to how she felt prior to removal of gallbladder has not had a fever. Came back due to severity of pain MD elicited complaint: abdominal pain Pertinent past history: other (recent surgery ) Onset (ago): day(s) (2) Pain Consistency: intermittent Location: RUQ Severity: moderate Quality: stabbing Radiation: none Migration to: no migration Exacerbating factors: movement Relieving factors: nothing Context: recent surgery/procedure Associated symptoms: constipation Related Data Previous Rx's Medication Instructions Recorded pantoprazole 20 mg tablet,delayed 20 mg PO DAILY #90 tabs 12/09/22 release hydrocodone 5 mg-acetaminophen 325 1 tab PO Q4-6H PRN pain #30 tabs 04/21/23 mg tablet oxycodone 5 mg tablet 5 mg PO Q4H PRN pain (scale score 04/21/23 7-10) #24 tabs Allergies Allergy/AdvReac Type Severity Reaction Status Date / Time No Known Allergies Allergy Verified 04/21/23 11:36 Review of Systems Review of Systems Constitutional : No Weight loss, No Fever, No Chills ENT/Mouth : No sore throat, No Rhinorrhea Eyes: No Swelling, No Redness Cardiovascular : No Chest Pain, No SOB, NoEdema Respiratory : No Cough, No Sputum, No Wheezing Gastrointestinal : no Nausea, no Vomiting, no Diarrhea, positive abdominal Pain, No Hematochezia, No Melena, pos constipation Genitourinary : No Dysuria, No Urinary Frequency, No Hematuria, No Urgency Musculoskeletal : No joint pain, No Myalgias, No Joint Swelling Skin : No Skin Lesions, No rash Neuro : No Weakness, No Numbness, No Dizziness, No Headache Psych : No Anxiety/Panic, No Depression All other systems reviewed and are negative. [facility] Past Medical History Attestation statement: The following information was validated with the patient. Medical History Morbid obesity with BMI of 40.0-44.9, adult GERD (gastroesophageal reflux disease) Social History Social History Household Members: Family Household Members Other:: Mother and Father. Housing: House Do you presently have visiting nurse or other home services: No Patient Tobacco Use Status: Never used Tobacco Smoked in Last 30 Days: No e-Cigarette/Vaping Use: Never Used Second Hand Smoke Exposure: No Use of substances other than those prescribed or required for medical reasons: No Advance Directives: No Advance Directives Information Provided: No Patient : No service: No Current occupational status: employed Current occupation: [employer] Current occupational exposures/hazards: No Sexual orientation: Straight/Heterosexual Gender identity: Female Cognitive needs: No Hearing needs: No Vision needs: No Physical Exam ED Vital Signs: Vital Signs - 24 hr 04/27/23 15:13 Temperature 97.7 F Pulse Rate 93 Respiratory Rate 16 Blood Pressure 114/67 Pulse Oximetry 97 Oxygen Delivery Method Room Air BMI result Body Mass Index 46.9 Appearance: Alert. Oriented X3. No acute distress. Eyes: Pupils equal, round and reactive to light. ENT: Pharynx normal. Neck: Normal inspection. Neck supple. CVS: Normal heart rate and rhythm. Pulses normal. Respiratory: No respiratory distress. Breath sounds normal. Abdomen: Soft and mild RUQ pain incisions are c/d/i well healing no fluctuance or erythema Skin: Skin warm and dry. Normal skin color. Normal skin turgor. Extremities: No lower extremity edema. No calf ttp Neuro: Oriented X 3. No motor deficit. No sensory deficit. Medical Decision Making Medical Decision Making MDM Narrative: 22 yo female with PMH of GERD s/p lap jone here with c/o pain and constipation post procedure she states the pain reminds her of pain prior to the procedure. She has no fevers, n/v and is having pain now. She is not passing gas but had hard stool today. At this time will need labs, IVF, IV morphine for pain and I am going to obtain CT scan for retained stone vs biloma vs pancreatitis without fevers infection seems less likely though this could just be constipation Differential Diagnosis Differential Diagnoses: The differential diagnosis associated with the presentation includes pancreatitis, biloma, retained stone Admission/Observation Consideration of admission/observation: Escalation of care including admission/observation considered reviewed with surgery okay for outpatient follow up Consult Healthcare Provider Management of the patient was discussed with: [facility] Lab Data MDM Lab Attestation statement: I reviewed the patient's lab results. 04/27/23 16:22 04/27/23 16:22 Labs: Lab Results 04/27/23 Range/Units 16:22 WBC 17.1 H (4.8-10.8) X10*3/uL RBC 5.41 (4.20-5.50) X10*6/uL Hgb 14.4 (12.0-16.0) g/dl Hct 45.0 (37.0-47.0) % MCV 83.2 (80.0-98.0) fL MCH 26.6 L (27.0-33.0) pg MCHC 32.0 (31.0-35.0) g/dl RDW 13.8 (11.0-16.0) % Plt Count 533 H (160-400) X10*3/uL MPV 9.5 (9.4-12.3) fL Immature Gran % (Auto) 0.4 (0.0-0.4) % Neut % (Auto) 87.3 H (45-73) % Lymph % (Auto) 7.8 L (20-40) % [place] % (Auto) 3.9 (2-11) % Eos % (Auto) 0.4 (0-4) % Baso % (Auto) 0.2 (0-2) % Lymph # (Auto) 1.3 (1.2-4.9) X10*3/uL [place] # (Auto) 0.7 (0.1-1.2) X10*3/uL Eos # (Auto) 0.1 (0.0-0.4) X10*3/uL Baso # (Auto) 0.0 (0.0-0.2) X10*3/uL Abs Immat Gran (auto) 0.07 H (0.00-0.03) X10*3/uL Absolute Neuts (auto) 15.0 H (2.0-8.3) x10*3/uL Absolute Nucleated RBC 0.000 (0.0-0.012) X10*3/uL Nucleated RBC % (auto) 0.0 (0.0-0.2) /100WBC Sodium 137 (135-145) mmol/L Potassium 4.6 (3.3-5.1) mmol/L Chloride 106 (96-108) mmol/L Carbon Dioxide 19 L (22-29) mmol/L Anion Gap 17 (12-20) BUN 14 (9-16) mg/dL Creatinine 0.71 (0.5-1.4) mg/dL Estim Creat Clear Calc 142.0 Estimated GFR > 60 Random Glucose 106 (60-115) mg/dL Calcium 10.1 (8.4-10.2) mg/dL Magnesium 2.2 (1.6-2.6) mg/dL Total Bilirubin 0.8 (0.0-1.0) mg/dL Direct Bilirubin 0.4 (0.0-0.5) mg/dL AST 86 H (5-31) U/L ALT 48 H (0-31) U/L Alkaline Phosphatase 245 H (39-117) U/L Total Protein 8.5 H (6.5-8.0) g/dL Albumin 4.2 (3.5-5.0) g/dL Lipase 14 (8-78) U/L Beta HCG, Quant < 2 mIU/mL Independent Interpretation I performed an independent interpretation of an: CT Scan (expected post op) Radiology Impression Discussion of test interpretation with radiology: I have reviewed the radiologist's reading. Independent Historian Clinical information obtained from an independent historian. History obtained from or confirmed by: Parent External Record Review External record reviewed: Inpatient record Prescription Management I considered prescription management with: Other Medications Administered Discontinued Medications Generic Name Dose Route Start Last Admin Trade Name Freq PRN Reason Stop Dose Admin Sodium Chloride 1,000 mls @ 999 mls/hr 04/27/23 15:45 04/27/23 16:54 Ns IVCONT 04/27/23 16:45 999 mls/hr .Q1H1M PRIYA Administration Iohexol 100 ml 04/27/23 18:09 04/27/23 18:09 Iohexol 350 Mg/Ml 100 Ml Infus..Btl IV 10/12/23 18:10 85 ml ONCE ONE Administration Morphine Sulfate 4 mg 04/27/23 15:38 04/27/23 16:54 Morphine Sulfate 4 Mg/Ml Cartridge IVPUSH 04/27/23 15:39 4 mg ONCE ONE Administration Protocol Ondansetron HCl 4 mg 04/27/23 15:38 04/27/23 16:54 Ondansetron Hcl 4 Mg/2 Ml Vial IVPUSH 04/27/23 15:39 4 mg ONCE ONE Administration Discharge Plan Discharge Clinical Impression: Abdominal pain Qualifiers: Abdominal location: generalized Qualified Code(s): R10.84 - Generalized abdominal pain Constipation Qualifiers: Constipation type: drug induced constipation Qualified Code(s): K59.03 - Drug induced constipation Patient Disposition: Home, Self-Care Instructions: Abdominal Pain (ED), Constipation (ED) Additional Instructions: try to stick with ibuprofen and tylenol. take colace 100mg twice a day and senna 8.6mg nightly until bowel movement. follow up in the office with Dr. Bruno - call for appointment. return for worsening pain, fevers, vomiting, inability to pass. gas you can take miralax over the counter one capful daily until you have a bowel movement as well. Prescriptions: No Action pantoprazole 20 mg tablet,delayed release (DR/EC) 20 mg PO DAILY Qty: 90 0RF oxycodone 5 mg tablet 5 mg PO Q4H PRN (Reason: pain (scale score 7-10)) Qty: 24 0RF Rx Instructions: Partial Fill upon patient request. hydrocodone-acetaminophen 5-325 mg tablet 1 tab PO Q4-6H PRN (Reason: pain) Qty: 30 0RF Rx Instructions: Partial Fill upon patient request.
[2023-04-27 16:26] LABS: MANUAL DIFF FLAG NO
[2023-04-27 16:29] LABS: Basophils Percent Auto 0.2 % (0-2); Eosinophils Absolute Auto 0.1 X10*3/uL (0.0-0.4); Eosinophils Percent Auto 0.4 % (0-4); Hemoglobin 14.4 g/dl (12.0-16.0); Imm Gran Abs Auto 0.07 X10*3/uL (0.00-0.03); Imm Gran Pct Auto 0.4 % (0.0-0.4); Lymphocytes Absolute Auto 1.3 X10*3/uL (1.2-4.9); Lymphocytes Percent Auto 7.8 % (20-40); Mean Corpuscular Hemoglobin 26.6 pg (27.0-33.0); Mean Corpuscular Volume 83.2 fL (80.0-98.0); Mean Platelet Volume 9.5 fL (9.4-12.3); Monocytes Absolute Auto 0.7 X10*3/uL (0.1-1.2); Monocytes Percent Auto 3.9 % (2-11); Neutrophils Percent Auto 87.3 % (45-73); Platelet Count 533 X10*3/uL (160-400); Red Blood Count 5.41 X10*6/uL (4.20-5.50); Red Cell Distribution Width 13.8 % (11.0-16.0); White Blood Count 17.1 X10*3/uL (4.8-10.8)
[2023-04-27 16:44] LABS: Alanine Aminotransferase 48 U/L (0-31); Albumin Level 4.2 g/dL (3.5-5.0); Alkaline Phosphatase 245 U/L (39-117); Anion Gap 17 (12-20); Aspartate Amino Transferase 86 U/L (5-31); Bilirubin Direct 0.4 mg/dL (0.0-0.5); Bilirubin Total 0.8 mg/dL (0.0-1.0); Blood Urea Nitrogen 14 mg/dL (9-16); Calcium 10.1 mg/dL (8.4-10.2); Carbon Dioxide 19 mmol/L (22-29); Chloride 106 mmol/L (96-108); Estimated Glomerular Filt Rate > 60; Glucose Random 106 mg/dL (60-115); Lipase 14 U/L (8-78); Magnesium 2.2 mg/dL (1.6-2.6); Potassium 4.6 mmol/L (3.3-5.1); Sodium 137 mmol/L (135-145); Total Protein 8.5 g/dL (6.5-8.0)
[2023-04-27] MEDS: Morphine Sulfate 4 MG/ML CARTRIDGE IVPUSH (16:54)
[2023-04-27] MEDS: 0.9 % Sodium Chloride 1,000 ML 999 ML IVCONT (16:54)
[2023-04-27] MEDS: ondansetron HCL 4 MG/2 ML VIAL IVPUSH (16:54)
--- NOTE | 2023-04-27 16:55 | PC.NURSE ---
Iv started to right hand, medicated as charted. Appears more comfortable than on arrival. states upper abd pain 6/10. Fluids infusing, awaits ct scan. Family at bedside
[2023-04-27 16:56] LABS: HCG Quantitative < 2 mIU/mL
[2023-04-27] MEDS: iohexoL 350 MG/ML 100 ML INFUS..BTL IV (18:09)
--- NOTE | 2023-04-27 18:26 | PC.NURSE ---
Pt appears more comfortable s/p Meds given. FLuids contnue to infuse. Awaiting CT scan rsul
== END 2023-04-27 19:27 | disposition home or self-care (01) ==
PROVIDERS: Emergency Provider Emergency Medicine; PCP Nurse Practitioner Family
DX: R10.84 Generalized abdominal pain (principal); K59.03 Drug induced constipation; Z90.49 Acquired absence of other specified parts of digestive tract; E66.01 Morbid (severe) obesity due to excess calories; Z68.42 Body mass index [BMI] 45.0-49.9, adult
CPT/HCPCS: 36415; 74177; 80048; 80076; 83690; 83735; 84702; 85025; 96361; 96374; 96375; 99284; J2270; J2405; Q9967

== ENCOUNTER 2023-04-30 20:25 | Inpatient (IN) | payer OTHER, SELFPAY ==
--- NOTE | ~2023-04-30 | CT_ITS ---
EXAMINATION: CT ABDOMEN AND PELVIS WITHOUT CONTRAST CLINICAL INFORMATION: Epigastric pain COMPARISON: 04/27/2023 12/03/2022 TECHNIQUE: Multidetector volumetric imaging was performed from the superior aspect of the liver through the pubic symphysis. Sagittal and coronal reformatted images were obtained on the technologist's workstation. This CT examination was performed using dose optimization techniques as appropriate, variously including the following: *Automated exposure control *Adjustment of mA and/or kV according to patient size (this includes techniques or standardized protocols for targeted exams where dose is matched to indication/reason for exam; i.e. extremities or head) *Use of iterative reconstruction technique DLP: 1034 mGy-cm FINDINGS: LUNG BASES: The visualized lung bases are unremarkable. LIVER, GALLBLADDER, AND BILIARY TREE: The liver is normal in size, shape, and attenuation. No focal hepatic lesion or biliary ductal dilatation is present. Cholecystectomy. PANCREAS: Interval development of extensive peripancreatic fluid which extends into the lesser sac, and bilateral anterior pararenal spaces, inferiorly as far as the pelvis on the right. There is ill-definition of the normal pancreatic architecture. No acute chronic collection at this time. SPLEEN: Unremarkable. ADRENAL GLANDS: Unremarkable. KIDNEYS AND URETERS: The kidneys are normal in size, shape, and attenuation. No hydronephrosis, hydroureter, or calculi seen. No perinephric stranding. BLADDER: Unremarkable. GASTROINTESTINAL TRACT: The small and large bowel are unremarkable. The appendix is unremarkable. ABDOMINAL WALL: No significant hernia is appreciated. LYMPH NODES: Normal. VASCULAR: Unremarkable. PELVIC VISCERA: Uterus and ovaries unremarkable. OSSEOUS STRUCTURES: No acute or suspicious osseous abnormalities. CT/CT abdomen pelvis wo IV con IMPRESSION: * Acute interstitial edematous pancreatitis, with extensive peripancreatic fluid as described. Please note the necrotizing pancreatitis cannot be excluded in the first 72 hours. * Cholecystectomy.
--- NOTE | ~2023-04-30 | US_ITS ---
EXAMINATION: US ABDOMEN LIMITED CLINICAL INFORMATION: Epigastric pain. Status post cholecystectomy 8 days ago.. COMPARISON: CT abdomen/pelvis dated 04/27/2023 TECHNIQUE: Real-time imaging of the right upper quadrant abdominal viscera. FINDINGS: PANCREAS: Obscured by interposed bowel gas. LIVER: Normal. The liver is normal in size. The liver contour is normal. Parenchymal echogenicity is normal. No focal hepatic lesion. There is no intrahepatic biliary duct dilatation seen. GALLBLADDER: Surgically absent. Small fluid in the gallbladder fossa as seen on the prior CT. No drainable collection. COMMON BILE DUCT: Normal in caliber measuring 1.1 cm in diameter. RIGHT KIDNEY: Normal. No hydronephrosis. No renal calculi or focal parenchymal lesions. The kidney measures 10.9 cm in maximum dimension. FREE FLUID: None. US/US abdomen limited IMPRESSION: * Status post cholecystectomy. Small fluid in the gallbladder fossa as seen on the prior CT. No drainable collection. * Mild prominence of the common bile duct, as can be seen status post cholecystectomy. No choledocholithiasis evident. There is a cholestatic hepatitis, consider MRCP for further evaluation
--- NOTE | ~2023-04-30 | CT_ITS ---
EXAMINATION: CT ABDOMEN AND PELVIS WITHOUT CONTRAST CLINICAL INFORMATION: Persistent pain with pancreatitis. COMPARISON: Portions of a previous 05/03/23 TECHNIQUE: Multidetector volumetric imaging was performed from the superior aspect of the liver through the pubic symphysis. Sagittal and coronal reformatted images were obtained on the technologist's workstation. This CT examination was performed using dose optimization techniques as appropriate, variously including the following: *Automated exposure control *Adjustment of mA and/or kV according to patient size (this includes techniques or standardized protocols for targeted exams where dose is matched to indication/reason for exam; i.e. extremities or head) *Use of iterative reconstruction technique DLP: 1109 mGy-cm FINDINGS: LUNG BASES: There is some left pleural fluid. There is bibasilar lung disease. This is similar to previous LIVER, GALLBLADDER, AND BILIARY TREE: No suspicious focal liver lesion. Suspect some heterogeneous fatty change. There are surgical clips in the expected region of the gallbladder. The liver contour is smooth. The right lobe of the liver measures 19.1 cm this is between 1 and 2 standard deviations above the mean expected PANCREAS: There is no focal low attenuating area within the parenchyma of the pancreas. The pancreas is enlarged and there is moderately severe peripancreatic stranding. The appearance is similar to the previous study. There is no convincing evidence of walled off necrosis SPLEEN: No suspicious focal lesion ADRENAL GLANDS: Normal KIDNEYS AND URETERS: No dilation of the urinary collecting system on either side. No suspicious renal mass BLADDER: The bladder is distended. No focal abnormality GASTROINTESTINAL TRACT: Gas and fecal residue throughout the colon. There is some mild nonspecific small bowel distention perhaps related to nonobstructive ileus. There is stranding around the stomach and root of the mesentery. There is thickening of the lateral conal fascia and there is stranding in the anterior pararenal spaces. There are scattered nonspecific mesenteric and retroperitoneal lymph nodes. ABDOMINAL WALL: There is some mild stranding in the soft tissues of the flank on both sides. No bowel hernia. LYMPH NODES: No measurably enlarged lymph nodes. No significant generalized free intraperitoneal fluid VASCULAR: There is no abdominal aortic aneurysm PELVIC VISCERA: No suspicious abnormality. OSSEOUS STRUCTURES: No suspicious focal lesion CT/CT abdomen pelvis wo IV con IMPRESSION: Findings consistent with acute pancreatitis. No focal low attenuating area within the pancreatic parenchyma to suggest abscess or necrosis. No large drainable collection. No significant interval change Left pleural fluid. Bibasilar lung disease again demonstrated Fleischner guidelines were followed.
--- NOTE | ~2023-04-30 | MR_ITS ---
EXAMINATION: MR ABDOMEN WITHOUT CONTRAST MR CHOLANGIOPANCREATOGRAPHY CLINICAL INFORMATION: Epigastric abdominal pain, acute pancreatitis, evaluate bile duct dilatation COMPARISON: CT scan of abdomen on 05/01/2023, ultrasound of the abdomen on 05/01/2023 TECHNIQUE: Examination was performed in a high field strength MRI scanner. Multiplanar multisequence MR imaging of the abdomen was performed without IV contrast enhancement. MR cholangiopancreatography was performed with heavily T2 weighted sequences. 3-dimensional reconstruction of image data was performed. This was performed under concurrent direct supervision and monitoring by radiologist. Maximum intensity projection images were constructed. FINDINGS: MR CHOLANGIOPANCREATOGRAPHY: Gallbladder is surgically absent. Bilateral intra hepatic bile ducts, common hepatic duct and common bile duct are normal in size without filling defects. Proximal common bile duct measures 0.93 cm in diameter, within normal limits for postcholecystectomy status. Pancreatic duct is normal in size. LIVER: The liver shows no focal lesion. A septated T2 hyperintense fluid collection is seen at anterior medial border of right hepatic lobe segment 5, measuring 0.7 cm in horizontal diameter, 1.1 cm in vertical height, series 4 image #11, series 3 image #12. The calculated hepatic fat percentage is 8.3%, compatible with mild hepatic steatosis. PANCREAS: No focal pancreatic lesion with abnormal signal can be seen. Pancreas is intact, showing diffuse subtle T2 hyperintensity in the body, head and uncinate process. Extensive peripancreatic T2 hyperintense inflammatory exudates are seen, infiltrating the lesser sac, extending to bilateral anterior and lateral pararenal fascia and bilateral posterior parietal peritoneum along the paracolic gutter. No well loculated pseudocyst could be identified. SPLEEN: Spleen is top normal in size, measuring 12.1 cm in AP length, without focal lesion. ADRENAL: Bilateral adrenal glands are normal in shape and size. KIDNEYS: Bilateral kidneys are normal in size without focal lesion. Oblique sagittal patchy airspace disease is seen in posterior left lung base. MR/MR MRCP IMPRESSION: 1. Similar to the findings on CT scan, MRI findings are consistent with extensive acute interstitial edematous pancreatitis with acute peripancreatic fluid collection and inflammatory exudates infiltrating the lesser sac, bilateral pararenal fascia and posterior parietal peritoneum with no well defined pseudocyst. 2. Status post cholecystectomy. Tiny septated fluid collection is present at anterior medial border of right hepatic lobe segment 5. 3. No evidence of hepatobiliary duct dilatation or ductal stones. 4. Mild hepatic steatosis is present.
--- NOTE | ~2023-04-30 | XR_ITS ---
EXAMINATION: XR CHEST CLINICAL INFORMATION: Hypoxia. COMPARISON: Chest radiographs dated 02/23/2022. TECHNIQUE: Frontal and lateral views of the chest were obtained. FINDINGS: The heart, great vessels, pulmonary vasculature and mediastinum are stable. There is mild pulmonary vascular congestion, without overt pulmonary edema. Lung volumes are low, with crowding of bronchovascular and pulmonary parenchymal markings. There is bibasilar airspace disease, and small bibasilar pleural effusions are suspected. There is silhouetting of the left hemidiaphragm on the frontal view. No pneumothorax is seen. There is no acute osseous abnormalities. XR/XR chest 2V IMPRESSION: 1. Lung volumes are low, with crowding of markings. 2. There is bibasilar atelectasis versus infiltrate, and small bilateral pleural effusions are suspected. 3. There is pulmonary vascular congestion, without jacinta pulmonary edema noted.
--- NOTE | ~2023-04-30 | CT_ITS ---
EXAMINATION: CT ABDOMEN AND PELVIS WITHOUT CONTRAST CLINICAL INFORMATION: Follow-up pancreatitis COMPARISON: Previous abdominal CT ultrasound and MRI May 01, 2023 TECHNIQUE: Multidetector volumetric imaging was performed from the superior aspect of the liver through the pubic symphysis. Sagittal and coronal reformatted images were obtained on the technologist's workstation. This CT examination was performed using dose optimization techniques as appropriate, variously including the following: *Automated exposure control *Adjustment of mA and/or kV according to patient size (this includes techniques or standardized protocols for targeted exams where dose is matched to indication/reason for exam; i.e. extremities or head) *Use of iterative reconstruction technique DLP: 1122 mGy-cm FINDINGS: LUNG BASES: Bilateral lower lobe atelectasis/consolidation and small left pleural effusion. This is increased from May 01 exam. LIVER, GALLBLADDER, AND BILIARY TREE: Slightly enlarged liver, right lobe measuring 20 cm in length. No focal liver lesion. The gallbladder has been removed. No biliary duct dilatation. PANCREAS: No evidence of hemorrhage. There is infiltration of the fat surrounding the pancreas. There is trace fluid seen in the anterior bilateral pararenal fascia, left greater than right. There is fluid seen in the bilateral paracolic gutters. No pseudocyst. No pancreatic duct dilatation. Appearance is not appreciably changed from May 01 exam. SPLEEN: Unremarkable. ADRENAL GLANDS: Unremarkable. KIDNEYS AND URETERS: The kidneys are normal in size, shape, and attenuation. No hydronephrosis, hydroureter, or calculi seen. No perinephric stranding. BLADDER: Unremarkable. GASTROINTESTINAL TRACT: Air-filled distended proximal colon probably representing an ileus. The small and large bowel are otherwise unremarkable. The appendix is unremarkable. ABDOMINAL WALL: No significant hernia is appreciated. LYMPH NODES: Normal. VASCULAR: Unremarkable. PELVIC VISCERA: Small amount of fluid in the pelvis. Uterus and adnexa are unremarkable. OSSEOUS STRUCTURES: Unremarkable. CT/CT abdomen pelvis wo IV con IMPRESSION: No change in pancreatitis from 05/01/2023. Proximal colonic ileus. Increasing atelectasis/consolidation in the bilateral lower lobes and small left pleural effusion. Fleischner guidelines were followed.
[2023-04-30 20:42] VITALS: BP 110/73; PULSE 99; RESP 18; TEMP 36.8; O2SAT 97; BMI 46.3
[2023-04-30 21:01] LABS: MANUAL DIFF FLAG NO
[2023-04-30 21:03] LABS: Basophils Absolute Auto 0.1 X10*3/uL (0.0-0.2); Basophils Percent Auto 0.4 % (0-2); Eosinophils Absolute Auto 0.1 X10*3/uL (0.0-0.4); Eosinophils Percent Auto 0.6 % (0-4); Hemoglobin 13.9 g/dl (12.0-16.0); Imm Gran Abs Auto 0.04 X10*3/uL (0.00-0.03); Imm Gran Pct Auto 0.3 % (0.0-0.4); Lymphocytes Absolute Auto 1.9 X10*3/uL (1.2-4.9); Lymphocytes Percent Auto 13.8 % (20-40); Mean Corpuscular HGB Conc 32.3 g/dl (31.0-35.0); Mean Corpuscular Hemoglobin 26.6 pg (27.0-33.0); Mean Corpuscular Volume 82.4 fL (80.0-98.0); Mean Platelet Volume 9.2 fL (9.4-12.3); Monocytes Absolute Auto 0.6 X10*3/uL (0.1-1.2); Monocytes Percent Auto 4.5 % (2-11); Neutrophils Absolute Auto 10.8 x10*3/uL (2.0-8.3); Neutrophils Percent Auto 80.4 % (45-73); Platelet Count 570 X10*3/uL (160-400); Red Blood Count 5.22 X10*6/uL (4.20-5.50); Red Cell Distribution Width 13.8 % (11.0-16.0); White Blood Count 13.4 X10*3/uL (4.8-10.8)
[2023-04-30 21:15] LABS: Alanine Aminotransferase 591 U/L (0-31); Albumin Level 4.1 g/dL (3.5-5.0); Alkaline Phosphatase 342 U/L (39-117); Anion Gap 20 (12-20); Aspartate Amino Transferase 339 U/L (5-31); Bilirubin Total 3.9 mg/dL (0.0-1.0); Blood Urea Nitrogen 7 mg/dL (9-16); Calcium 9.4 mg/dL (8.4-10.2); Carbon Dioxide 20 mmol/L (22-29); Chloride 104 mmol/L (96-108); Creatinine Clr Calc Pharmacy 164.1; Estimated Glomerular Filt Rate > 60; Glucose Random 150 mg/dL (60-115); Potassium 3.5 mmol/L (3.3-5.1); Sodium 140 mmol/L (135-145); Total Protein 7.8 g/dL (6.5-8.0)
[2023-04-30 21:19] VITALS: BP 112/77; PULSE 80; RESP 18; TEMP 36.6; O2SAT 96
--- NOTE | 2023-04-30 21:30 | ED_ITS ---
HPI - Abdominal Pain General Chief Complaint: Abdominal Pain Stated Complaint: Abdominal pain, post surgery/Blood in urine Time Seen by Provider: 04/30/23 21:20 Source: patient Mode of arrival: ambulatory Limitations: no limitations History of Present Illness HPI narrative: Patient status post laparoscopic cholecystectomy on 04/21 uneventful discharged same day was doing good for initial 5 days and started having epigastric discomfort again with poor oral intake was seen here on 04/27 CT scan of the abdomen showed stool patient been taking stool softener last night she took milk Mag citrate and had watery diarrhea all night with nausea comes here as patient still having the pain in upper abdomen with radiating to the back with feeling weak and poor appetite no fever but had some chills no urinary complaint Related Data Previous Rx's Medication Instructions Recorded pantoprazole 20 mg tablet,delayed 20 mg PO DAILY #90 tabs 12/09/22 release hydrocodone 5 mg-acetaminophen 325 1 tab PO Q4-6H PRN pain #30 tabs 04/21/23 mg tablet oxycodone 5 mg tablet 5 mg PO Q4H PRN pain (scale score 04/21/23 7-10) #24 tabs Allergies Allergy/AdvReac Type Severity Reaction Status Date / Time No Known Allergies Allergy Verified 04/21/23 11:36 Review of Systems Review of Systems Yes all other systems are reviewed and are negative PMFSH Past Medical History Medical History Morbid obesity with BMI of 40.0-44.9, adult GERD (gastroesophageal reflux disease) Surgical History History of laparoscopic cholecystectomy (04/21/23) Social History Social History Household Members: Family Household Members Other:: Mother and Father. Housing: House Do you presently have visiting nurse or other home services: No Alcohol intake: never Patient Tobacco Use Status: Never used Tobacco Smoked in Last 30 Days: No e-Cigarette/Vaping Use: Never Used Second Hand Smoke Exposure: No Use of substances other than those prescribed or required for medical reasons: No Advance Directives: No Patient : No service: No Current occupational status: employed Current occupation: [employer] Current occupational exposures/hazards: No Sexual orientation: Straight/Heterosexual Gender identity: Female Cognitive needs: No Hearing needs: No Vision needs: No Physical Exam ED Vital Signs: Vital Signs - 24 hr 04/30/23 20:42 04/30/23 21:19 05/01/23 01:36 Temperature 98.3 F 97.8 F 97.7 F Pulse Rate 99 80 68 Respiratory Rate 18 18 18 Blood Pressure 110/73 112/77 118/76 Pulse Oximetry 97 96 98 Oxygen Delivery Method Room Air Room Air Room Air BMI result Body Mass Index 46.3 Appearance: Alert. Oriented X3. No acute distress. Eyes: PERRLA, No Nystagmus slight icterus ENT: Pharynx normal. Oral Mucosa moist Neck: Normal inspection. Neck supple. CVS: Normal heart rate and rhythm. Pulses normal. Respiratory: No respiratory distress. Equal air entry bilateral, no wheezing/rales/rhonchi Abdomen: Soft, tenderness in epigastric area, no rebound tenderness or guarding, Bowel sounds are present, no mass palpable, no CVA tenderness Skin: Skin warm and dry. Normal skin color. Normal skin turgor. Extremities: No lower extremity edema. No calf tenderness Neuro: Oriented X 3. No motor deficit. Medical Decision Making Medical Decision Making MDM Narrative: Patient with persistent upper abdominal pain radiating to the back post cholecystectomy and lab workup showed elevated LFTs and elevated lipase likely retained stone patient had CT scan done on 04/27 which did not show blockage but slightly dilated by bile ducts. Lab workup showed elevated lipase ultrasound was done which was negative for CBD stone Will admit patient for MRCP for gallstone pancreatitis Differential Diagnosis Differential Diagnoses: The differential diagnosis associated with the presentation includes Pancreatitis/retained stone/obstructive jaundice Admission/Observation Consideration of admission/observation: Escalation of care including admission/observation considered Consult Healthcare Provider Management of the patient was discussed with: Hospitalist Lab Data MDM Lab Attestation statement: I reviewed the patient's lab results. 04/30/23 20:57 04/30/23 20:57 Labs: Lab Results 04/30/23 Range/Units 20:57 WBC 13.4 H (4.8-10.8) X10*3/uL RBC 5.22 (4.20-5.50) X10*6/uL Hgb 13.9 (12.0-16.0) g/dl Hct 43.0 (37.0-47.0) % MCV 82.4 (80.0-98.0) fL MCH 26.6 L (27.0-33.0) pg MCHC 32.3 (31.0-35.0) g/dl RDW 13.8 (11.0-16.0) % Plt Count 570 H (160-400) X10*3/uL MPV 9.2 L (9.4-12.3) fL Immature Gran % (Auto) 0.3 (0.0-0.4) % Neut % (Auto) 80.4 H (45-73) % Lymph % (Auto) 13.8 L (20-40) % Tyrrell % (Auto) 4.5 (2-11) % Eos % (Auto) 0.6 (0-4) % Baso % (Auto) 0.4 (0-2) % Lymph # (Auto) 1.9 (1.2-4.9) X10*3/uL Tyrrell # (Auto) 0.6 (0.1-1.2) X10*3/uL Eos # (Auto) 0.1 (0.0-0.4) X10*3/uL Baso # (Auto) 0.1 (0.0-0.2) X10*3/uL Abs Immat Gran (auto) 0.04 H (0.00-0.03) X10*3/uL Absolute Neuts (auto) 10.8 H (2.0-8.3) x10*3/uL Absolute Nucleated RBC 0.000 (0.0-0.012) X10*3/uL Nucleated RBC % (auto) 0.0 (0.0-0.2) /100WBC Sodium 140 (135-145) mmol/L Potassium 3.5 D (3.3-5.1) mmol/L Chloride 104 (96-108) mmol/L Carbon Dioxide 20 L (22-29) mmol/L Anion Gap 20 (12-20) BUN 7 L (9-16) mg/dL Creatinine 0.61 (0.5-1.4) mg/dL Estim Creat Clear Calc 164.1 Estimated GFR > 60 Random Glucose 150 H (60-115) mg/dL Calcium 9.4 D (8.4-10.2) mg/dL Total Bilirubin 3.9 H (0.0-1.0) mg/dL AST 339 H (5-31) U/L ALT 591 H (0-31) U/L Alkaline Phosphatase 342 H (39-117) U/L Total Protein 7.8 (6.5-8.0) g/dL Albumin 4.1 (3.5-5.0) g/dL Lipase > 3000 H (8-78) U/L Medications Administered Discontinued Medications Generic Name Dose Route Start Last Admin Trade Name Freq PRN Reason Stop Dose Admin Famotidine 20 mg 05/01/23 01:25 05/01/23 01:40 Famotidine/Pf 20 Mg/2 Ml Vial IVPUSH 05/01/23 01:26 20 mg ONCE ONE Administration Hydromorphone HCl 1 mg 04/30/23 21:53 04/30/23 22:32 Hydromorphone Hcl 1 Mg/Ml Syringe IVPUSH 04/30/23 21:54 1 mg ONCE ONE Administration Protocol Hydromorphone HCl 1 mg 05/01/23 01:27 05/01/23 01:40 Hydromorphone Hcl 1 Mg/Ml Syringe IVPUSH 05/01/23 01:28 1 mg ONCE ONE Administration Protocol Sodium Chloride 1,000 mls @ 999 mls/hr 04/30/23 21:42 04/30/23 22:32 Ns IV 04/30/23 22:42 999 mls/hr .Q1H1M ONE Administration Ondansetron HCl 4 mg 04/30/23 21:42 04/30/23 22:32 Ondansetron Hcl 4 Mg/2 Ml Vial IVPUSH 04/30/23 21:43 4 mg ONCE ONE Administration Discharge Plan Discharge Clinical Impression: Acute gallstone pancreatitis, Elevated liver function tests Patient Disposition: Admitted As Inpatient
[2023-04-30] MEDS: 0.9 % Sodium Chloride 1,000 ML 999 ML IV (22:32)
[2023-04-30] MEDS: HYDROmorphone HCl 1 MG/ML SYRINGE IVPUSH (22:32)
[2023-04-30] MEDS: ondansetron HCL 4 MG/2 ML VIAL IVPUSH (22:32)
--- NOTE | 2023-04-30 22:57 | PC.NURSE ---
PT wheeled in from waiting room. PT reports N/V for 24 hours, and more recent diarrhea and blood on toliet paper. Pt had gallbladder surgery on 04/21 and soon after was experiencing constipation. PT was told by surgeon to take magnesium citrate and hours later pt began to have diarrhea and noted blood that she describes as not being in her stool but was noticed when wiping. PT currently on her menstrual period. Guarding and tenderness noted in Upper quadrants of pts abdomen. Pt unable to keep foods or liquids down. IV access established in left ac. Medications administered as per MAR, fluids currently running. Plan is for ultrasound and admission to hospital. Call [facility]ourt within reach.
[2023-05-01 00:57] LABS: Lipase > 3000 U/L (8-78)
[2023-05-01 01:36] VITALS: BP 118/76; PULSE 68; RESP 18; TEMP 36.5; O2SAT 98
[2023-05-01] MEDS: Famotidine/PF 20 MG/2 ML VIAL IVPUSH (01:40)
[2023-05-01] MEDS: HYDROmorphone HCl 1 MG/ML SYRINGE IVPUSH ×7 (01:40→22:56)
--- NOTE | 2023-05-01 02:04 | PC.NURSE ---
PT reporting 6/10 pain at this time. Medicated as per SEP.
[2023-05-01 02:09] LABS: Triglycerides 94 mg/dL (<150)
--- NOTE | 2023-05-01 03:02 | P.HPHOSP_ITS ---
History of Present Illness Date of Service: 05/01/23 Chief Complaint: epigastric pain This is a 22-year-old female with pertinent history of gastroesophageal reflux disease who presents to the emergency department for evaluation of abdominal pain. Patient states it started 1 day prior to presentation, epigastric region, constant, progressive and without any relieving factors. Also has associated nausea and vomiting. Unable to keep anything down. Unable to tolerate p.o. intake. Patient recently had laparoscopic cholecystomy and was discharged on 04/25. Patient returned to the ER on 04/27 with abdominal discomfort where imaging showed constipation. She was sent home and asked to take magnesium citrate. Patient states she took magnesium citrate which caused multiple loose bowel movements but her abdominal pain returned 1 day prior to presentation. Denies smoking marijuana or significant alcohol use. Also has associated chills. No fever, chest discomfort, palpitations, shortness of breath, changes in urinary habits. In the emergency department, imaging with pancreatitis and lipase found to be elevated. Review of Systems 2 Constitutional: Constitutional: Reports chills Cardiovascular: Cardiovascular: Reports no additional cardiovascular complaints Respiratory: Respiratory: Reports no additional respiratory complaints Gastrointestinal: Gastrointestinal: Reports abdominal pain, Reports nausea and Reports vomiting Genitourinary: Genitourinary: Reports no additional female genitourinary complaints [facility] Medical History Morbid obesity with BMI of 40.0-44.9, adult GERD (gastroesophageal reflux disease) Surgical History History of laparoscopic cholecystectomy (04/21/23) Social History Household Members: Family Household Members Other:: Mother and Father. Housing: House Do you presently have visiting nurse or other home services: No Alcohol intake: never Patient Tobacco Use Status: Never used Tobacco Smoked in Last 30 Days: No e-Cigarette/Vaping Use: Never Used Second Hand Smoke Exposure: No Use of substances other than those prescribed or required for medical reasons: No Advance Directives: No Patient : No service: No Current occupational status: employed Current occupation: [employer] Current occupational exposures/hazards: No Sexual orientation: Straight/Heterosexual Gender identity: Female Cognitive needs: No Hearing needs: No Vision needs: No Meds Allergies Allergy/AdvReac Type Severity Reaction Status Date / Time No Known Allergies Allergy Verified 04/21/23 11:36 Active Medications: Current Medications Hydromorphone HCl (Hydromorphone Hcl 1 Mg/Ml Syringe) 1 mg IVPUSH Q4H PRN; Protocol PRN Reason: Pain, Severe (Pain Scale 7-10) Physical Exam 2 Vital Signs and Narrative: Vital Signs: Last Vital Signs Temp 97.7 F 05/01/23 01:36 Pulse 68 05/01/23 01:36 Resp 18 05/01/23 01:36 BP 118/76 05/01/23 01:36 Pulse Ox 98 05/01/23 01:36 O2 Del Method Room Air 05/01/23 01:36 BMI result Body Mass Index 46.3 Young female lying in bed in mild distress Neck supple, no JVD Regular rate and rhythm, S1-S2 heard Regular breath sounds bilaterally, no wheezing or crackles appreciated Abdomen with epigastric tenderness, no guarding, no rigidity, no rebound tenderness Patient is awake, alert and oriented to self, place, time and person ; no focal motor deficit Psych: Normal mood No pedal edema Results Labs 05/01/23 04:54 05/01/23 04:54 Labs: Laboratory Results - last 24 hr 04/30/23 20:57 MCV 82.4 MCH 26.6 L MCHC 32.3 RDW 13.8 Plt Count 570 H MPV 9.2 L Immature Gran % (Auto) 0.3 Neut % (Auto) 80.4 H Lymph % (Auto) 13.8 L [place] % (Auto) 4.5 Eos % (Auto) 0.6 Baso % (Auto) 0.4 Lymph # (Auto) 1.9 [place] # (Auto) 0.6 Eos # (Auto) 0.1 Baso # (Auto) 0.1 Abs Immat Gran (auto) 0.04 H Absolute Neuts (auto) 10.8 H Absolute Nucleated RBC 0.000 Nucleated RBC % (auto) 0.0 Anion Gap 20 Estim Creat Clear Calc 164.1 Estimated GFR > 60 Random Glucose 150 H Calcium 9.4 D Total Bilirubin 3.9 H AST 339 H ALT 591 H Alkaline Phosphatase 342 H Total Protein 7.8 Albumin 4.1 Triglycerides 94 Lipase > 3000 H Imaging Radiologist's Impressions: Impressions Abdomen Ultrasound 05/01/23 01:06 IMPRESSION: * Status post cholecystectomy. Small fluid in the gallbladder fossa as seen on the prior CT. No drainable collection. * Mild prominence of the common bile duct, as can be seen status post cholecystectomy. No choledocholithiasis evident. There is a cholestatic hepatitis, consider MRCP for further evaluation Assessment and Plan (1) Acute pancreatitis: Status: Acute Plan This is a 22-year-old female with pertinent history of gastroesophageal reflux disease who presents to the emergency department for evaluation of abdominal pain. #. Acute pancreatitis #. Elevated liver enzymes -Will admit patient and continue IV crystalloid resuscitation. NPO for bowel rest. Initiating IV opioids p.r.n. for symptomatic relief. Noted elevated transaminases and alkaline phosphatase, obtaining MRCP. Triglycerides within normal limits. Specialist consult pending MRCP results #. Reactive leukocytosis #. Obesity: Counseled regarding diet and exercise Full code NPO Admit as inpatient and will require two night minimum hospital stay for treatment of acute pancreatitis. Time Spent With Patient Time: Total time managing care of this patient today ____ minutes. Quality Stroke Does the patient have a stroke diagnosis?: No VTE Prior VTE?: No VTE Risk Level:: Medical - moderate - high VTE Device Contraindication: Treatment Not Indicated VTE Drug Contraindication: N/A - Med Ordered
[2023-05-01] MEDS: ondansetron HCL 4 MG/2 ML VIAL IVPUSH ×2 (04:15→20:45)
[2023-05-01 04:18] VITALS: BP 131/74; PULSE 77; RESP 18; TEMP 36.5; O2SAT 95
[2023-05-01 05:03] LABS: MANUAL DIFF FLAG NO
[2023-05-01 05:11] LABS: Basophils Absolute Auto 0.1 X10*3/uL (0.0-0.2); Basophils Percent Auto 0.4 % (0-2); Eosinophils Percent Auto 0.1 % (0-4); Hematocrit 42.6 % (37.0-47.0); Hemoglobin 13.6 g/dl (12.0-16.0); Imm Gran Abs Auto 0.03 X10*3/uL (0.00-0.03); Imm Gran Pct Auto 0.2 % (0.0-0.4); Lymphocytes Absolute Auto 1.3 X10*3/uL (1.2-4.9); Lymphocytes Percent Auto 9.1 % (20-40); Mean Corpuscular HGB Conc 31.9 g/dl (31.0-35.0); Mean Corpuscular Hemoglobin 26.6 pg (27.0-33.0); Mean Corpuscular Volume 83.2 fL (80.0-98.0); Mean Platelet Volume 9.6 fL (9.4-12.3); Monocytes Absolute Auto 0.7 X10*3/uL (0.1-1.2); Neutrophils Percent Auto 85.2 % (45-73); Platelet Count 604 X10*3/uL (160-400); Red Blood Count 5.12 X10*6/uL (4.20-5.50); White Blood Count 14.1 X10*3/uL (4.8-10.8)
[2023-05-01 05:24] LABS: Alanine Aminotransferase 548 U/L (0-31); Albumin Level 3.9 g/dL (3.5-5.0); Alkaline Phosphatase 346 U/L (39-117); Anion Gap 18 (12-20); Aspartate Amino Transferase 305 U/L (5-31); Bilirubin Total 3.7 mg/dL (0.0-1.0); Blood Urea Nitrogen 9 mg/dL (9-16); Calcium 9.1 mg/dL (8.4-10.2); Carbon Dioxide 21 mmol/L (22-29); Chloride 105 mmol/L (96-108); Creatinine Clr Calc Pharmacy 161.5; Estimated Glomerular Filt Rate > 60; Glucose Random 137 mg/dL (60-115); Potassium 4.1 mmol/L (3.3-5.1); Sodium 140 mmol/L (135-145); Total Protein 7.5 g/dL (6.5-8.0)
[2023-05-01] MEDS: Enoxaparin Sodium 40 MG/0.4 ML SYRINGE SUBCUT (05:54)
[2023-05-01] MEDS: 0.9 % Sodium Chloride 1,000 ML 999 ML IV (06:06)
--- NOTE | 2023-05-01 07:10 | PC.NURSE ---
PT continues to bend arm delaying administration of medications. Second IV line place in right wrist. Fluids infusing at this time.
[2023-05-01] MEDS: 0.9 % Sodium Chloride Flush 3 ML SYRINGE IVFLUSH ×2 (07:48→15:10)
[2023-05-01] MEDS: Lactated Ringers 1,000 ML 100 ML IVCONT ×2 (07:48→19:32)
--- NOTE | 2023-05-01 07:55 | PC.NURSE ---
Pt is alert/oriented. Resting on stretcher. States 6/10 epigastric pain. Awaiting MRI, screening form completed. Mother at bedside. LR started at 100ml/hr. Skin pale, warm and dry. NPO.
[2023-05-01 08:20] VITALS: BP 122/64; PULSE 74; RESP 20; O2SAT 95
--- NOTE | 2023-05-01 08:35 | PC.NURSE ---
Pt off unit for MRI
[2023-05-01 08:40] LABS: Appearance Urine Turbid; Color Urine Dark Yellow; Glucose Urine UA Negative (Negative); Leukocyte Esterase Urine Small (1+) (Negative); Nitrite Urine Negative (Negative); PH 5.5 (5.0-9.0); Specific Gravity - Urine 1.015 (1.005-1.025); UMIC TRIGGER UACC YES; Urine Blood Large (3+) (Negative); Urine Ketones 80 mg/dL (Negative); Urine Protein 30 (1+) mg/dL (Neg-Trace)
[2023-05-01 08:45] LABS: Bacteria Urine 1+ (None Seen); RBC Urine >20 /HPF (0-2); UACC Culture Trigger YES; WBC Urine 21-50 /HPF (0-5)
--- NOTE | 2023-05-01 09:57 | PHA.MEDREC ---
Pharmacy Consult ? Medication Reconciliation Pharmacy has completed the medication reconciliation.
--- NOTE | 2023-05-01 10:58 | PC.NURSE ---
pt is nauseous and c/t abd pain. PER MD, cont to be NPO. also per MD, give PRN dilaudid for pain. LR infusing father at bedside, pt resting
--- NOTE | 2023-05-01 11:27 | MHC.CM.PN ---
PT SLEEPING, CM MET WITH FATHER AT BEDSIDE HE REPORTS PT LIVES AT HOME WITH PARENTS AND IS INDEPENDENT WITH CARE PT HAS NO DME AND NO SERVICES PT DOES NOT HAVE A HCP, FATHER INFORMED CM CAN ASSIST IF PT IS INTERESTED PCP: HÉCTOR CAGLE DCP: [facility]
[2023-05-01 13:26] VITALS: BP 120/74; PULSE 76; RESP 16; O2SAT 96
--- NOTE | 2023-05-01 15:01 | PC.NURSE ---
pt reporting sever 8/10 pain in abd. reports mild nausea
--- NOTE | 2023-05-01 15:11 | PC.NURSE ---
per , pt OK for ice chips
[2023-05-01 16:41] VITALS: BP 118/65; PULSE 84; RESP 20; TEMP 36.4; O2SAT 96
[2023-05-01 19:14] VITALS: BP 120/56; PULSE 88; RESP 18; TEMP 37.1; O2SAT 93
[2023-05-01 20:30] VITALS: BMI 46.3
[2023-05-02] MEDS: HYDROmorphone HCl 1 MG/ML SYRINGE IVPUSH ×10 (01:37→22:54)
[2023-05-02 03:41] VITALS: BP 121/60; PULSE 100; RESP 20; TEMP 36.2; O2SAT 98
[2023-05-02 04:00] VITALS: BP 118/68; PULSE 68; RESP 18; TEMP 36.5; O2SAT 99
[2023-05-02] MEDS: Lactated Ringers 1,000 ML 100 ML IVCONT ×2 (04:05→14:13)
[2023-05-02] MEDS: ondansetron HCL 4 MG/2 ML VIAL IVPUSH ×2 (06:03→16:29)
[2023-05-02] MEDS: Enoxaparin Sodium 40 MG/0.4 ML SYRINGE SUBCUT (06:03)
[2023-05-02 07:26] VITALS: BP 104/60; PULSE 122; RESP 18; TEMP 36.7; O2SAT 91
[2023-05-02 09:29] LABS: Lipase 1261 U/L (8-78)
--- NOTE | 2023-05-02 09:55 | P.PNIM_ITS ---
Subjective Subjective Date of Service: 05/03/23 Interval History: She's reporting persistent pain, lipase is trending down, MRI done 05/01, report not available Physical Exam 2 Vital Signs: Vital Signs: Last Vital Signs Temp 98.1 F 05/02/23 07:26 Pulse 122 H 05/02/23 07:26 Resp 18 05/02/23 07:26 BP 104/60 05/02/23 07:26 Pulse Ox 91 L 05/02/23 07:26 O2 Del Method Room Air 05/02/23 07:26 BMI result Body Mass Index 46.3 Const: Other: General: AO X 3, no acute distress Resp: CTA bilateral CVS: S1,S2,RRR GI: +BS, epigastric tenderness, no distention Skin: No rash Neuro: motor grossly intact Psych: appropriate affect Objective Data Active Medications Acetaminophen (Acetaminophen 325 Mg Tablet) 650 mg PO Q6H PRN PRN Reason: Pain, Mild (Pain Scale 1-3) Enoxaparin Sodium (Enoxaparin Sodium 40 Mg/0.4 Ml Syringe) 40 mg SUBCUT Q24H [facility] Last Admin: 05/02/23 06:03 Dose: 40 mg Documented By: JOSE DANIEL Hydromorphone HCl (Hydromorphone Hcl 1 Mg/Ml Syringe) 1 mg IVPUSH Q2H PRN; Protocol PRN Reason: Pain, Severe (Pain Scale 7-10) Last Admin: 05/02/23 07:57 Dose: 1 mg Documented By: RAEGAN Lactated Ringer's (Lr) 1,000 mls @ 100 mls/hr IVCONT .Q10H [facility] Last Admin: 05/02/23 04:05 Dose: 100 mls/hr Documented By: JOSE DANIEL Promethazine HCl 12.5 mg/ (Sodium Chloride) 50.5 mls @ 202 mls/hr IV Q4H PRN PRN Reason: Nausea and Vomiting Last Infusion: 05/01/23 11:32 Dose: Infused Documented By: CARMELO Melatonin (Melatonin 3 Mg Tablet) 6 mg PO BEDTIME PRN PRN Reason: Insomnia Ondansetron HCl (Ondansetron Hcl 4 Mg/2 Ml Vial) 4 mg IVPUSH Q8H PRN PRN Reason: Nausea and Vomiting Last Admin: 05/02/23 06:03 Dose: 4 mg Documented By: JOSE DANIEL Sodium Chloride (0.9 % Sodium Chloride Flush 3 Ml Syringe) 3 ml IVFLUSH QSHIFT [facility] Last Admin: 05/02/23 07:56 Dose: Not Given Documented By: RAEGAN Non-Admin Reason: IV Running Labs 05/01/23 04:54 05/01/23 04:54 Labs: Laboratory Results - last 24 hr 05/02/23 08:34 Hold Purple Top SEE NOTE Lipase 1261 H Microbiology Microbiology Results: Microbiology 05/01/23 Unknown Urine Culture - Final Urine clean catch - Urine pressley top Assessment and Plan (1) Acute pancreatitis: Status: Acute Plan This is a 22-year-old female with pertinent history of gastroesophageal reflux disease who presents to the emergency department for evaluation of abdominal pain. #. Acute pancreatitis, lipase trending down #. Elevated liver enzymes #. s/p recent laparoscopic cholecystectomy on 04/21 -nl TG, no alcohol use. MRCP -gi consult based on MRI finding #. Reactive leukocytosis #. Obesity: Counseled regarding diet and exercise Full code NPO Nee for inpatient: Acute pancreatitis, needing IV narc, IVF while NPO. Time Spent With Patient Time: Total time managing care of this patient today ____ minutes. Quality Stroke Does the patient have a stroke diagnosis?: No VTE Prior VTE?: No VTE Risk Level:: Medical - moderate - high VTE Device Contraindication: Treatment Not Indicated VTE Drug Contraindication: N/A - Med Ordered
--- NOTE | 2023-05-02 14:40 | PM.GICN ---
History of Present Illness Data of Consult Service Date: 05/02/23 Requesting physician: Bhavesh [facility] Primary Care Provider: MANNIE Yancey HPI Reason for consult: Acute interstitial pancreatitis. This is a 22-year-old female with past medical history of GERD, morbid obesity, status post cholecystectomy 04/21/23, who presented to the hospital for abdominal pain. History obtained the patient, who states that even post-cholecystectomy, continued to have similar pain to what she had before her gallbladder surgery. However as she was able to tolerate PO was discharged home with watchful management. Patient was seen in the emergency room on 04/27 for severe abdominal pain and underwent a CT scan which was negative for any bile leak, CBD at that time 1.1 cm. On my review of images seems to have a small punctate stone in distal 1/3rd CBD on that scan. She was given medical management for constipation and discharged from the emergency room. She then returned again on 04/30. This time, reported worsening abdominal pain since Monday that radiates to her back. Has also not been able to keep anything down and has had multiple episodes of nausea and vomiting. With this, has also been noticing dark urine. Was noted to have increasing white count and Chem 7 suggestive of elevated LFTs with lipase of more than 3000. This was normal in ER visit 04/27. Ultrasound abdomen was performed that showed CBD to 9 mm without any stone. MRI with MRCP showed extensive acute interstitial pancreatitis with acute peripancreatic fluid collections extending down to R paracolic gutter. Today at the time of assessment, pt in bed. Father in attendance. Reports taking a trial of CLD which she could not tolerate. No fevers or chills. Has only urinated twice today. Review of Systems Review of Systems: Yes all other systems are reviewed and are negative PMF Past Medical History Medical History Morbid obesity with BMI of 40.0-44.9, adult GERD (gastroesophageal reflux disease) Surgical History Surgical History History of laparoscopic cholecystectomy (04/21/23) Social History Social History Household Members: Family Household Members Other:: Mother and Father. Housing: House Do you presently have visiting nurse or other home services: No Alcohol intake: never Patient Tobacco Use Status: Never used Tobacco e-Cigarette/Vaping Use: Never Used Second Hand Smoke Exposure: No service: No Current occupational status: employed Current occupation: [employer] Current occupational exposures/hazards: No Sexual orientation: Straight/Heterosexual Gender identity: Female Cognitive needs: No Hearing needs: No Vision needs: No Meds Allergies Allergy/AdvReac Type Severity Reaction Status Date / Time No Known Allergies Allergy Verified 04/21/23 11:36 Active Medications: Current Medications Acetaminophen (Acetaminophen 325 Mg Tablet) 650 mg PO Q6H PRN PRN Reason: Pain, Mild (Pain Scale 1-3) Enoxaparin Sodium (Enoxaparin Sodium 40 Mg/0.4 Ml Syringe) 40 mg SUBCUT Q24H [facility] Last Admin: 05/02/23 06:03 Dose: 40 mg Hydromorphone HCl (Hydromorphone Hcl 1 Mg/Ml Syringe) 1 mg IVPUSH Q2H PRN; Protocol PRN Reason: Pain, Severe (Pain Scale 7-10) Last Admin: 05/02/23 12:49 Dose: 1 mg Lactated Ringer's (Lr) 1,000 mls @ 100 mls/hr IVCONT .Q10H [facility] Last Admin: 05/02/23 14:13 Dose: 100 mls/hr Promethazine HCl 12.5 mg/ (Sodium Chloride) 50.5 mls @ 202 mls/hr IV Q4H PRN PRN Reason: Nausea and Vomiting Last Infusion: 05/01/23 11:32 Dose: Infused Melatonin (Melatonin 3 Mg Tablet) 6 mg PO BEDTIME PRN PRN Reason: Insomnia Ondansetron HCl (Ondansetron Hcl 4 Mg/2 Ml Vial) 4 mg IVPUSH Q8H PRN PRN Reason: Nausea and Vomiting Last Admin: 05/02/23 06:03 Dose: 4 mg Sodium Chloride (0.9 % Sodium Chloride Flush 3 Ml Syringe) 3 ml IVFLUSH QSHIFT [facility] Last Admin: 05/02/23 07:56 Dose: Not Given Physical Exam Vital Signs: Vital Signs: Last Vital Signs Temp 98.1 F 05/02/23 07:26 Pulse 122 H 05/02/23 07:26 Resp 18 05/02/23 07:26 BP 104/60 05/02/23 07:26 Pulse Ox 91 L 05/02/23 07:26 O2 Del Method Room Air 05/02/23 07:26 BMI result Body Mass Index 46.3 Gen appear: Young female, in moderate distress HEENT: nonicteric, no cervical lymphadenopathy Chest: CTA CVS: Regular S1/S2 Abd: soft, tender in epigastrium with guarding, nondistended Ext: no peripheral edema Neuro: A/Ox3, noted to move all extremities spontaneously Psych: interacting appropriately Results Labs 05/01/23 04:54 05/01/23 04:54 Microbiology Microbiology Results: Microbiology 05/01/23 Unknown Urine clean catch - Urine pressley top Urine Culture - Final Imaging MRI - abdomen: Attestation: I personally reviewed and interpreted this imaging study as follows: My impression: Dilated CBD to 9 mm with a small punctate stone noted in mid CBD (coronal T2 image 06/07 albeit had significant flow artifact in image 05/07) which appears to be in similar location as noted on CT scan. Assessment and Plan (1) Acute gallstone pancreatitis: Status: Acute (2) Elevated liver function tests: Status: Acute Plan Has mild-moderate acute interstitial pancreatitis per abigail criteria. Likely to due to gallstone which has either passed or persistent (see MRI review above). LFTs with obstructive pattern from yest which again could be seen even if gallstone passed; from severe edema surround CBD - added on LFTs for today. Plan: - Await LFTs from today - Daily CBC, BMP and LFTs - Will review imaging with biliary colleague as well. In any case, limited indication of early ERCP in AIP in the absence of cholangitis. - Aggressive goal-directed fluid resuscitation with LR. This should be directed towards decrease in hematocrit and BUN in the next 24h. - LR increased to 200cc/h x 2L followed by 150cc (orders adjusted) - Monitor urine output. - Monitor electrolytes including ionized Ca and Mg and correct appropriately - Check BG TID and HS and maintain between 140 and 180. Hyperglycemia may increase risk of local pancreatic infections - Pain control with scheduled tylenol and oxy. Avoid NSAIDs. - Serial abdominal exams . If there is no N/V or ileus, feeding should be resumed in the next 24-48h. Early feeding is PARAMOUNT to prevent infection from bacterial translocation. If unable to tolerate PO even after 48h, will need NG tube for feeding. - Consider repeat contrasted imaging in 72h to assess for any panc necrosis or local fluid collections. Thank you for the consultation. Will follow. Please call for questions or concerns. Time Spent With Patient Time: Total time managing care of this patient today ____ minutes. Procedures Date of Service Date of Service: 05/02/23
[2023-05-02 15:31] VITALS: BP 118/63; PULSE 132; RESP 18; TEMP 36.7; O2SAT 93
[2023-05-02 16:37] LABS: Alanine Aminotransferase 378 U/L (0-31); Albumin Level 3.3 g/dL (3.5-5.0); Alkaline Phosphatase 401 U/L (39-117); Aspartate Amino Transferase 169 U/L (5-31); Bilirubin Total 3.8 mg/dL (0.0-1.0); Total Protein 6.5 g/dL (6.5-8.0)
[2023-05-02] MEDS: Lactated Ringers 1,000 ML 200 ML IVCONT ×2 (17:30→21:58)
[2023-05-02 20:00] VITALS: BP 120/70; PULSE 99; RESP 20; TEMP 36.1; O2SAT 98
[2023-05-02] MEDS: Acetaminophen 325 MG TABLET 650 MG PO (21:57)
[2023-05-03] MEDS: HYDROmorphone HCl 1 MG/ML SYRINGE IVPUSH ×7 (02:47→22:44)
[2023-05-03 04:00] VITALS: BP 120/72; PULSE 90; RESP 20; TEMP 36.1; O2SAT 92
[2023-05-03] MEDS: ondansetron HCL 4 MG/2 ML VIAL IVPUSH ×2 (04:48→19:55)
[2023-05-03] MEDS: Enoxaparin Sodium 40 MG/0.4 ML SYRINGE SUBCUT (06:30)
[2023-05-03 07:25] VITALS: BP 114/71; PULSE 109; RESP 18; TEMP 36.5; O2SAT 91
[2023-05-03] MEDS: 0.9 % Sodium Chloride Flush 3 ML SYRINGE IVFLUSH ×2 (07:45→15:37)
[2023-05-03 09:07] LABS: Alanine Aminotransferase 241 U/L (0-31); Alkaline Phosphatase 351 U/L (39-117); Aspartate Amino Transferase 68 U/L (5-31); Bilirubin Direct 1.1 mg/dL (0.0-0.5); Bilirubin Total 1.6 mg/dL (0.0-1.0); Lipase 150 U/L (8-78); Total Protein 6.1 g/dL (6.5-8.0)
[2023-05-03] MEDS: Lactated Ringers 1,000 ML 150 ML IVCONT ×2 (09:24→16:31)
--- NOTE | 2023-05-03 09:40 | P.PNIM_ITS ---
Subjective Subjective Date of Service: 05/03/23 Interval History: Pain is better, Lipase is down to 150 Physical Exam 2 Vital Signs: Vital Signs: Last Vital Signs Temp 97.7 F 05/03/23 07:25 Pulse 109 H 05/03/23 07:25 Resp 18 05/03/23 07:25 BP 114/71 05/03/23 07:25 Pulse Ox 91 L 05/03/23 07:25 O2 Del Method Room Air 05/03/23 07:25 BMI result Body Mass Index 46.3 Const: Other: General: AO X 3, no acute distress Resp: CTA bilateral CVS: S1,S2,RRR GI: +BS, epigastric tenderness, no distention Skin: No rash Neuro: motor grossly intact Psych: appropriate affect Objective Data Active Medications Acetaminophen (Acetaminophen 325 Mg Tablet) 650 mg PO Q6H PRN PRN Reason: Pain, Mild (Pain Scale 1-3) Last Admin: 05/02/23 21:57 Dose: 650 mg Documented By: ASTRID Docusate Sodium (Docusate Sodium 100 Mg Capsule) 100 mg PO BID [facility] Enoxaparin Sodium (Enoxaparin Sodium 40 Mg/0.4 Ml Syringe) 40 mg SUBCUT Q24H [facility] Last Admin: 05/03/23 06:30 Dose: 40 mg Documented By: ASTRID Hydromorphone HCl (Hydromorphone Hcl 1 Mg/Ml Syringe) 1 mg IVPUSH Q2H PRN; Protocol PRN Reason: Pain, Severe (Pain Scale 7-10) Last Admin: 05/03/23 07:41 Dose: 1 mg Documented By: MARY Promethazine HCl 12.5 mg/ (Sodium Chloride) 50.5 mls @ 202 mls/hr IV Q4H PRN PRN Reason: Nausea and Vomiting Last Infusion: 05/01/23 11:32 Dose: Infused Documented By: CARMELO Lactated Ringer's (Lr) 1,000 mls @ 150 mls/hr IVCONT .Q6H40M [facility] Stop: 05/04/23 03:59 Last Admin: 05/03/23 09:24 Dose: 150 mls/hr Documented By: MARY Melatonin (Melatonin 3 Mg Tablet) 6 mg PO BEDTIME PRN PRN Reason: Insomnia Ondansetron HCl (Ondansetron Hcl 4 Mg/2 Ml Vial) 4 mg IVPUSH Q8H PRN PRN Reason: Nausea and Vomiting Last Admin: 05/03/23 04:48 Dose: 4 mg Documented By: ASTRID Oxycodone HCl (Oxycodone Hcl Immed Release 5 Mg Tablet) 5 mg PO Q6H PRN PRN Reason: Pain, Severe (Pain Scale 7-10) Polyethylene Glycol (Polyethylene Glycol 3350 17 Gm Powd.Pack) 17 gm PO DAILY PRN PRN Reason: Pain, Severe (Pain Scale 7-10) Sodium Chloride (0.9 % Sodium Chloride Flush 3 Ml Syringe) 3 ml IVFLUSH QSHIFT [facility] Last Admin: 05/03/23 07:45 Dose: 3 ml Documented By: AYDEOSOB Labs 05/01/23 04:54 05/01/23 04:54 Labs: Laboratory Results - last 24 hr 05/02/23 05/03/23 08:34 08:40 Total Bilirubin 3.8 H 1.6 H Direct Bilirubin 3.0 H 1.1 H AST 169 H 68 H ALT 378 H 241 H Alkaline Phosphatase 401 H 351 H Total Protein 6.5 6.1 L Albumin 3.3 L 3.0 L Lipase 150 H Microbiology Microbiology Results: Microbiology 05/01/23 Unknown Urine Culture - Final Urine clean catch - Urine pressley top Assessment and Plan (1) Acute pancreatitis: Status: Acute Plan This is a 22-year-old female with pertinent history of gastroesophageal reflux disease who presents to the emergency department for evaluation of abdominal pain. #. Acute pancreatitis, lipase down to 150, LFTs, bili all trending down, no fever #. Elevated liver enzymes #. s/p recent laparoscopic cholecystectomy on 04/21 -nl TG, no alcohol use. MRCP no stone demonstrated -gi input noted, advance diet, repeat CT 72 from initial one #. Reactive leukocytosis #. Obesity: Counseled regarding diet and exercise Full code NPO Nee for inpatient: Acute pancreatitis, needing IV narc, IVF while NPO. Time Spent With Patient Time: Total time managing care of this patient today ____ minutes. Quality Stroke Does the patient have a stroke diagnosis?: No VTE Prior VTE?: No VTE Risk Level:: Medical - moderate - high VTE Device Contraindication: Treatment Not Indicated VTE Drug Contraindication: N/A - Med Ordered
[2023-05-03] MEDS: Docusate Sodium 100 MG CAPSULE PO ×2 (09:59→21:43)
[2023-05-03] MEDS: oxyCODONE HCl Immed Release 5 MG TABLET PO ×2 (10:40→15:35)
[2023-05-03 13:06] LABS: Hematocrit 35.5 % (37.0-47.0); Hemoglobin 11.6 g/dl (12.0-16.0); Mean Corpuscular HGB Conc 32.7 g/dl (31.0-35.0); Mean Corpuscular Volume 82.8 fL (80.0-98.0); Mean Platelet Volume 9.6 fL (9.4-12.3); Platelet Count 464 X10*3/uL (160-400); Red Blood Count 4.29 X10*6/uL (4.20-5.50); Red Cell Distribution Width 14.9 % (11.0-16.0); White Blood Count 19.4 X10*3/uL (4.8-10.8)
[2023-05-03 15:26] VITALS: BP 110/67; PULSE 117; RESP 18; TEMP 37.1; O2SAT 92
--- NOTE | 2023-05-03 16:30 | P.PNGI_ITS ---
Subjective Subjective Date of Service: 05/03/23 Interval History: Pt seen and evaluated at bedside. Dad and uncle present as well. Reports feeling worse after trial of milk and orange juice, did not throw up but abd pain got significantly worse and required pain meds. Critical Care Time (minutes): 0 Physical Exam 2 Vital Signs: Vital Signs: Last Vital Signs Temp 98.8 F 05/03/23 15:26 Pulse 117 H 05/03/23 15:26 Resp 18 05/03/23 15:26 BP 110/67 05/03/23 15:26 Pulse Ox 92 05/03/23 15:26 O2 Del Method Room Air 05/03/23 15:26 BMI result Body Mass Index 46.3 gen appear: obese, mod distress abd: soft, tender, guarding Objective Data Labs 05/03/23 12:59 05/01/23 04:54 Labs: Laboratory Results - last 24 hr 05/02/23 05/03/23 05/03/23 08:34 08:40 12:59 WBC 19.4 H RBC 4.29 Hgb 11.6 L Hct 35.5 L MCV 82.8 MCH 27.0 MCHC 32.7 RDW 14.9 Plt Count 464 H MPV 9.6 Absolute Nucleated RBC 0.000 Nucleated RBC % (auto) 0.0 Total Bilirubin 3.8 H 1.6 H Direct Bilirubin 3.0 H 1.1 H AST 169 H 68 H ALT 378 H 241 H Alkaline Phosphatase 401 H 351 H Total Protein 6.5 6.1 L Albumin 3.3 L 3.0 L Lipase 150 H Microbiology Microbiology Results: Microbiology 05/01/23 Unknown Urine clean catch - Urine pressley top Urine Culture - Final Procedures Date of Service Date of Service: 05/03/23 Progress Note: A&P Assessment and plan (1) Acute gallstone pancreatitis: Status: Acute (2) Elevated liver function tests: Status: Acute Plan Labs reviewed, white count worse. Suspect likely due to SIRS from AIP but also worrisome for evolving necrotizing pancreatitis. H/H down from 05/01 indicating good IVF resuscitation. LFTs also improving, again ? passed stone. Plan: - Should be on LOW fat diet only - can consider adding clear ensure shakes that are free fat to meet caloric requirement - If unable to tolerate low fat liquid diet by tmrw, will recommend NG tube for feeding - Encourage ambulation at least 3-4 times a day - Repeat CT abd/pel with IV contrast tmrw (i.e 72h from prev one) - Remaining recommendations as outlined in initial consult note Time Spent With Patient Time: Total time managing care of this patient today ____ minutes. Quality Stroke Does the patient have a stroke diagnosis?: No VTE Prior VTE?: No VTE Risk Level:: Medical - moderate - high VTE Device Contraindication: Treatment Not Indicated VTE Drug Contraindication: N/A - Med Ordered
[2023-05-03 16:39] VITALS: RESP 22
[2023-05-03] MEDS: Piperacillin Sodium/Tazobactam 3.375 GM in 0.9 % Sodium Chloride 50 ML IV (17:30)
[2023-05-03 19:42] VITALS: BP 115/67; PULSE 120; RESP 17; TEMP 37.2; O2SAT 93
[2023-05-03 22:36] VITALS: BP 125/74; TEMP 37.4; O2SAT 93
[2023-05-04 00:12] VITALS: BP 116/69; PULSE 115; RESP 18; TEMP 36.4; O2SAT 96
[2023-05-04] MEDS: Piperacillin Sodium/Tazobactam 3.375 GM in 0.9 % Sodium Chloride 50 ML IV ×5 (00:17→22:43)
[2023-05-04] MEDS: Lactated Ringers 1,000 ML 150 ML IVCONT ×4 (01:02→23:35)
[2023-05-04] MEDS: HYDROmorphone HCl 1 MG/ML SYRINGE IVPUSH ×10 (01:02→23:32)
[2023-05-04] MEDS: Enoxaparin Sodium 40 MG/0.4 ML SYRINGE SUBCUT (05:57)
[2023-05-04 08:00] VITALS: BP 112/71; PULSE 100; RESP 16; TEMP 36; O2SAT 96
[2023-05-04] MEDS: Docusate Sodium 100 MG CAPSULE PO ×2 (08:05→20:45)
[2023-05-04] MEDS: 0.9 % Sodium Chloride Flush 3 ML SYRINGE IVFLUSH ×2 (08:07→22:43)
--- NOTE | 2023-05-04 08:51 | P.PNIM_ITS ---
Subjective Subjective Date of Service: 05/04/23 Interval History: f/u on acute pancreatitis c/o /10 pain, no fever WBC went up yesterday to 19 and was started on empric Zosyn. Put on oxygen for O2 of 91, no cough, no shortness of breah Physical Exam 2 Vital Signs: Vital Signs: Last Vital Signs Temp 96.8 F 05/04/23 08:00 Pulse 100 05/04/23 08:00 Resp 16 05/04/23 08:00 BP 112/71 05/04/23 08:00 Pulse Ox 96 05/04/23 08:00 O2 Del Method Nasal Cannula 05/04/23 08:00 O2 Flow Rate 2 05/04/23 08:00 BMI result Body Mass Index 46.3 Const: Other: General: AO X 3, no acute distress Resp: CTA bilateral CVS: S1,S2,RRR GI: mod epigastric tenderness, Skin: No rash Neuro: motor grossly intact Psych: appropriate affect Objective Data Active Medications Acetaminophen (Acetaminophen 325 Mg Tablet) 650 mg PO Q6H PRN PRN Reason: Pain, Mild (Pain Scale 1-3) Last Admin: 05/02/23 21:57 Dose: 650 mg Documented By: ASTRID Docusate Sodium (Docusate Sodium 100 Mg Capsule) 100 mg PO BID [facility] Last Admin: 05/04/23 08:05 Dose: 100 mg Documented By: TOYA Enoxaparin Sodium (Enoxaparin Sodium 40 Mg/0.4 Ml Syringe) 40 mg SUBCUT Q24H [facility] Last Admin: 05/04/23 05:57 Dose: 40 mg Documented By: ASTRID Hydromorphone HCl (Hydromorphone Hcl 1 Mg/Ml Syringe) 1 mg IVPUSH Q2H PRN; Protocol PRN Reason: Pain, Severe (Pain Scale 7-10) Last Admin: 05/04/23 08:05 Dose: 1 mg Documented By: TOYA Promethazine HCl 12.5 mg/ (Sodium Chloride) 50.5 mls @ 202 mls/hr IV Q4H PRN PRN Reason: Nausea and Vomiting Last Infusion: 05/01/23 11:32 Dose: Infused Documented By: CARMELO Piperacillin Sod/Tazobactam (Sod 3.375 gm/ Sodium Chloride) 50 mls @ 100 mls/hr IV Q6H [facility] Last Infusion: 05/04/23 06:47 Dose: Infused Documented By: TOYA Melatonin (Melatonin 3 Mg Tablet) 6 mg PO BEDTIME PRN PRN Reason: Insomnia Ondansetron HCl (Ondansetron Hcl 4 Mg/2 Ml Vial) 4 mg IVPUSH Q8H PRN PRN Reason: Nausea and Vomiting Last Admin: 05/03/23 19:55 Dose: 4 mg Documented By: ASTRID Oxycodone HCl (Oxycodone Hcl Immed Release 5 Mg Tablet) 5 mg PO Q6H PRN PRN Reason: Pain, Severe (Pain Scale 7-10) Last Admin: 05/03/23 15:35 Dose: 5 mg Documented By: MARY Polyethylene Glycol (Polyethylene Glycol 3350 17 Gm Powd.Pack) 17 gm PO DAILY PRN PRN Reason: Pain, Severe (Pain Scale 7-10) Sodium Chloride (0.9 % Sodium Chloride Flush 3 Ml Syringe) [facility] Last Admin: 05/04/23 08:07 Dose: 3 ml Documented By: TOYA Labs 05/03/23 12:59 05/01/23 04:54 Labs: Laboratory Results - last 24 hr 05/03/23 05/03/23 08:40 12:59 MCV 82.8 MCH 27.0 MCHC 32.7 RDW 14.9 Plt Count 464 H MPV 9.6 Absolute Nucleated RBC 0.000 Nucleated RBC % (auto) 0.0 Total Bilirubin 1.6 H Direct Bilirubin 1.1 H AST 68 H ALT 241 H Alkaline Phosphatase 351 H Total Protein 6.1 L Albumin 3.0 L Lipase 150 H Assessment and Plan (1) Acute pancreatitis: Status: Acute Plan This is a 22-year-old female with pertinent history of gastroesophageal reflux disease who presents to the emergency department for evaluation of abdominal pain. #. Acute pancreatitis, -s/p recent laparoscopic cholecystectomy on 04/21 --nl TG, no alcohol use. MRCP no stone demonstrated - repeat CT 05/03 unchanged, lipase down to 150, LFTs, bili all trending down, no fever but elevated WBC so added empric Zosy repeat LFTs today and if continue to improve will contiue oral diet vs starting feed by NG --gi input noted, advance diet #. Elevated liver enzymes--improving, follow level #. Ileus on CT, related to above, monitor if worse surgery input #. Reactive leukocytosis, #. Decrease O2 sat to 91, likely atectasis from pancreatitis, incentive spirometry, CXR #. Obesity: Counseled regarding diet and exercise Full code lovenox for dvt prophylaxis Nee for inpatient: Acute pancreatitis, needing IV narc, IVF while NPO. Time Spent With Patient Time: Total time managing care of this patient today ____ minutes. Quality Stroke Does the patient have a stroke diagnosis?: No VTE Prior VTE?: No VTE Risk Level:: Medical - moderate - high VTE Device Contraindication: Treatment Not Indicated VTE Drug Contraindication: N/A - Med Ordered
[2023-05-04 09:27] LABS: Hematocrit 32.5 % (37.0-47.0); Hemoglobin 10.3 g/dl (12.0-16.0); Mean Corpuscular HGB Conc 31.7 g/dl (31.0-35.0); Mean Corpuscular Hemoglobin 27.2 pg (27.0-33.0); Mean Corpuscular Volume 85.8 fL (80.0-98.0); Platelet Count 433 X10*3/uL (160-400); Red Blood Count 3.79 X10*6/uL (4.20-5.50); Red Cell Distribution Width 14.9 % (11.0-16.0); White Blood Count 14.9 X10*3/uL (4.8-10.8)
[2023-05-04 09:44] LABS: Alanine Aminotransferase 155 U/L (0-31); Alkaline Phosphatase 266 U/L (39-117); Aspartate Amino Transferase 26 U/L (5-31); Bilirubin Direct 0.8 mg/dL (0.0-0.5); Bilirubin Total 1.2 mg/dL (0.0-1.0); Lipase 60 U/L (8-78); Total Protein 6.2 g/dL (6.5-8.0)
[2023-05-04] MEDS: ondansetron HCL 4 MG/2 ML VIAL IVPUSH ×2 (13:41→22:43)
--- NOTE | 2023-05-04 13:47 | MHC.CM.PN ---
Per rounds, pt not ready for DC. Plan is home with family, self care. CM to follow and assit with DC plan as needed.
[2023-05-04 15:01] LABS: Anion Gap 15 (12-20)
[2023-05-04 15:05] LABS: Blood Urea Nitrogen 4 mg/dL (9-16); Calcium 8.8 mg/dL (8.4-10.2); Carbon Dioxide 25 mmol/L (22-29); Chloride 101 mmol/L (96-108); Creatinine Clr Calc Pharmacy 196.3; Estimated Glomerular Filt Rate > 60; Glucose Random 73 mg/dL (60-115); Magnesium 1.9 mg/dL (1.6-2.6); Potassium 3.5 mmol/L (3.3-5.1); Sodium 137 mmol/L (135-145)
[2023-05-04 15:46] VITALS: BP 118/62; PULSE 99; RESP 18; TEMP 36.6; O2SAT 96
[2023-05-04 19:56] VITALS: BP 112/63; PULSE 88; RESP 18; TEMP 36.6; O2SAT 95
[2023-05-04] MEDS: Melatonin 3 MG TABLET 6 MG PO (20:45)
[2023-05-05 00:38] VITALS: BP 118/59; PULSE 105; RESP 18; TEMP 37; O2SAT 96
[2023-05-05] MEDS: HYDROmorphone HCl 1 MG/ML SYRINGE IVPUSH ×6 (01:46→21:19)
[2023-05-05] MEDS: Piperacillin Sodium/Tazobactam 3.375 GM in 0.9 % Sodium Chloride 50 ML IV ×4 (04:28→22:54)
[2023-05-05] MEDS: oxyCODONE HCl Immed Release 5 MG TABLET PO (06:05)
[2023-05-05] MEDS: Enoxaparin Sodium 40 MG/0.4 ML SYRINGE SUBCUT (06:06)
[2023-05-05] MEDS: Lactated Ringers 1,000 ML 150 ML IVCONT (06:07)
[2023-05-05 07:45] VITALS: BP 107/62; PULSE 99; RESP 18; TEMP 36.7; O2SAT 95
[2023-05-05] MEDS: Docusate Sodium 100 MG CAPSULE PO ×2 (07:56→21:20)
--- NOTE | 2023-05-05 09:51 | HO.PM.IMPN ---
Subjective Subjective Date of Service: 05/05/23 Interval History: F/u on acute pancreatitis she's overall feeling better, pain is better still on d/t low O2 sat, chest not yet read per my reveiw atelectasis Physical Exam Vital Signs: Vital Signs: Last Vital Signs Temp 98.1 F 05/05/23 07:45 Pulse 99 05/05/23 07:45 Resp 18 05/05/23 07:45 BP 107/62 05/05/23 07:45 Pulse Ox 95 05/05/23 07:45 O2 Del Method Nasal Cannula 05/05/23 07:45 O2 Flow Rate 2 05/05/23 07:45 BMI result Body Mass Index 46.3 Const: Other: General: AO X 3, no acute distress Resp: CTA bilateral CVS: S1,S2,RRR GI: mild epigastric tenderness, Skin: No rash Neuro: motor grossly intact Psych: appropriate affect Objective Data Active Medications Acetaminophen (Acetaminophen 325 Mg Tablet) 650 mg PO Q6H PRN PRN Reason: Pain, Mild (Pain Scale 1-3) Last Admin: 05/02/23 21:57 Dose: 650 mg Documented By: ASTRID Docusate Sodium (Docusate Sodium 100 Mg Capsule) 100 mg PO BID [facility] Last Admin: 05/05/23 07:56 Dose: 100 mg Documented By: TOYA Enoxaparin Sodium (Enoxaparin Sodium 40 Mg/0.4 Ml Syringe) 40 mg SUBCUT Q24H [facility] Last Admin: 05/05/23 06:06 Dose: 40 mg Documented By: NAZARIO Hydromorphone HCl (Hydromorphone Hcl 1 Mg/Ml Syringe) 1 mg IVPUSH Q2H PRN; Protocol PRN Reason: Pain, Severe (Pain Scale 7-10) Last Admin: 05/05/23 07:56 Dose: 1 mg Documented By: TOYA Promethazine HCl 12.5 mg/ (Sodium Chloride) 50.5 mls @ 202 mls/hr IV Q4H PRN PRN Reason: Nausea and Vomiting Last Infusion: 05/01/23 11:32 Dose: Infused Documented By: CARMELO Piperacillin Sod/Tazobactam (Sod 3.375 gm/ Sodium Chloride) 50 mls @ 100 mls/hr IV Q6H [facility] Last Infusion: 05/05/23 04:58 Dose: Infused Documented By: NAZARIO Lactated Ringer's (Lr) 1,000 mls @ 150 mls/hr IVCONT .Q6H40M [facility] Last Admin: 05/05/23 06:07 Dose: 150 mls/hr Documented By: NAZARIO Melatonin (Melatonin 3 Mg Tablet) 6 mg PO BEDTIME PRN PRN Reason: Insomnia Last Admin: 05/04/23 20:45 Dose: 6 mg Documented By: NAZARIO Ondansetron HCl (Ondansetron Hcl 4 Mg/2 Ml Vial) 4 mg IVPUSH Q8H PRN PRN Reason: Nausea and Vomiting Last Admin: 05/04/23 22:43 Dose: 4 mg Documented By: NAZARIO Oxycodone HCl (Oxycodone Hcl Immed Release 5 Mg Tablet) 5 mg PO Q6H PRN PRN Reason: Pain, Severe (Pain Scale 7-10) Last Admin: 05/05/23 06:05 Dose: 5 mg Documented By: NAZARIO Polyethylene Glycol (Polyethylene Glycol 3350 17 Gm Powd.Pack) 17 gm PO DAILY PRN PRN Reason: Pain, Severe (Pain Scale 7-10) Sodium Chloride (0.9 % Sodium Chloride Flush 3 Ml Syringe) [facility] Last Admin: 05/05/23 07:50 Dose: Not Given Documented By: TOYA Non-Admin Reason: IV Running Labs 05/04/23 08:44 05/04/23 08:44 Labs: Laboratory Results - last 24 hr 05/04/23 08:44 Anion Gap 15 Estim Creat Clear Calc 196.3 Estimated GFR > 60 Random Glucose 73 Calcium 8.8 Magnesium 1.9 Assessment and Plan (1) Acute pancreatitis: Status: Acute Plan This is a 22-year-old female with pertinent history of gastroesophageal reflux disease who presents to the emergency department for evaluation of abdominal pain. #. Acute pancreatitis, likely from reatained stone -s/p recent laparoscopic cholecystectomy on 04/21 --nl TG, no alcohol use. MRCP no stone demonstrated - repeat CT 05/03 unchanged, lipase down to 150, LFTs, bili all trending down, no fever but elevated WBC so added empric Zosy (05/03) and WBC trending down repeat LFTs today and if continue to improve will contiue oral diet --gi input noted #. Elevated liver enzymes--improving, follow level #. Ileus on CT, related to above, monitor if worse surgery input #. Leukocytosis, likely reactive, monitor #. (Hypoxia)Decrease O2 sat to 91, likely atectasis from pancreatitis, incentive spirometry, CXR result pending #. Obesity: Counseled regarding diet and exercise Full code out of bed, ambulate lovenox for dvt prophylaxis Nee for inpatient: Acute pancreatitis, needing IV narc, IVF while NPO. Time Spent With Patient Time: Total time managing care of this patient today ____ minutes. Quality Stroke Does the patient have a stroke diagnosis?: No VTE Prior VTE?: No VTE Risk Level:: Medical - moderate - high VTE Device Contraindication: Treatment Not Indicated VTE Drug Contraindication: N/A - Med Ordered
[2023-05-05 10:45] LABS: Hematocrit 30.9 % (37.0-47.0); Hemoglobin 9.8 g/dl (12.0-16.0); Mean Corpuscular HGB Conc 31.7 g/dl (31.0-35.0); Mean Corpuscular Hemoglobin 26.8 pg (27.0-33.0); Mean Corpuscular Volume 84.4 fL (80.0-98.0); Mean Platelet Volume 9.7 fL (9.4-12.3); Platelet Count 417 X10*3/uL (160-400); Red Blood Count 3.66 X10*6/uL (4.20-5.50); Red Cell Distribution Width 14.7 % (11.0-16.0); White Blood Count 14.9 X10*3/uL (4.8-10.8)
[2023-05-05 10:58] LABS: Lipase 51 U/L (8-78)
--- NOTE | 2023-05-05 10:58 | MHC.CM.PN ---
Per MD rounds no discharge today. Patient is not medically cleared. Patient may be ready over the weekend. DP home self care. Family will provide transportation.
[2023-05-05] MEDS: Furosemide 40 MG/4 ML VIAL IVPUSH (15:10)
[2023-05-05] MEDS: 0.9 % Sodium Chloride Flush 3 ML SYRINGE IVFLUSH ×2 (15:12→23:00)
[2023-05-05] MEDS: ondansetron HCL 4 MG/2 ML VIAL IVPUSH (15:15)
[2023-05-05 15:36] VITALS: BP 121/71; PULSE 99; RESP 18; TEMP 36.7; O2SAT 93
[2023-05-05 19:36] VITALS: BP 125/69; PULSE 109; RESP 18; TEMP 36.2; O2SAT 94
[2023-05-06] MEDS: ondansetron HCL 4 MG/2 ML VIAL IVPUSH ×2 (00:39→18:06)
[2023-05-06] MEDS: HYDROmorphone HCl 1 MG/ML SYRINGE IVPUSH ×3 (01:23→09:58)
[2023-05-06 03:58] VITALS: BP 121/72; PULSE 97; RESP 16; TEMP 36.6; O2SAT 95
[2023-05-06] MEDS: Piperacillin Sodium/Tazobactam 3.375 GM in 0.9 % Sodium Chloride 50 ML IV ×4 (04:41→23:46)
[2023-05-06] MEDS: Enoxaparin Sodium 40 MG/0.4 ML SYRINGE SUBCUT (05:26)
[2023-05-06 06:14] LABS: Hematocrit 32.4 % (37.0-47.0); Hemoglobin 10.1 g/dl (12.0-16.0); Mean Corpuscular HGB Conc 31.2 g/dl (31.0-35.0); Mean Corpuscular Hemoglobin 26.9 pg (27.0-33.0); Mean Corpuscular Volume 86.2 fL (80.0-98.0); Mean Platelet Volume 9.9 fL (9.4-12.3); Platelet Count 474 X10*3/uL (160-400); Red Blood Count 3.76 X10*6/uL (4.20-5.50); Red Cell Distribution Width 14.5 % (11.0-16.0); White Blood Count 12.3 X10*3/uL (4.8-10.8)
[2023-05-06 06:27] LABS: Alanine Aminotransferase 78 U/L (0-31); Albumin Level 3.1 g/dL (3.5-5.0); Alkaline Phosphatase 202 U/L (39-117); Anion Gap 17 (12-20); Aspartate Amino Transferase 20 U/L (5-31); Bilirubin Direct 0.7 mg/dL (0.0-0.5); Bilirubin Total 0.9 mg/dL (0.0-1.0); Blood Urea Nitrogen 4 mg/dL (9-16); Calcium 9.2 mg/dL (8.4-10.2); Carbon Dioxide 26 mmol/L (22-29); Chloride 98 mmol/L (96-108); Creatinine Clr Calc Pharmacy 178.8; Estimated Glomerular Filt Rate > 60; Glucose Random 79 mg/dL (60-115); Sodium 138 mmol/L (135-145); Total Protein 6.7 g/dL (6.5-8.0)
[2023-05-06 07:37] VITALS: BP 111/68; PULSE 96; RESP 16; TEMP 36.6; O2SAT 90
[2023-05-06] MEDS: Acetaminophen 325 MG TABLET 650 MG PO (08:22)
[2023-05-06] MEDS: Docusate Sodium 100 MG CAPSULE PO (08:22)
[2023-05-06] MEDS: 0.9 % Sodium Chloride Flush 3 ML SYRINGE IVFLUSH ×2 (08:23→17:58)
--- NOTE | 2023-05-06 08:56 | P.PNIM_ITS ---
Subjective Subjective Date of Service: 05/06/23 Interval History: F/u on acute pancreatitis post CCY she's overall feeling better, pain is better O2 sat is better, has no had BM since admission, labs all trending in the right direction Physical Exam 2 Vital Signs: Vital Signs: Last Vital Signs Temp 97.9 F 05/06/23 07:37 Pulse 96 05/06/23 07:37 Resp 16 05/06/23 07:37 BP 111/68 05/06/23 07:37 Pulse Ox 90 L 05/06/23 07:37 O2 Del Method Nasal Cannula 05/06/23 07:37 O2 Flow Rate 2 05/06/23 07:37 BMI result Body Mass Index 46.3 Const: Other: General: AO X 3, no acute distress Resp: CTA bilateral CVS: S1,S2,RRR GI: mild epigastric tenderness, hypoactive bowel sounds Skin: No rash Neuro: motor grossly intact Psych: appropriate affect Objective Data Active Medications Acetaminophen (Acetaminophen 325 Mg Tablet) 650 mg PO Q6H PRN PRN Reason: Pain, Mild (Pain Scale 1-3) Last Admin: 05/06/23 08:22 Dose: 650 mg Documented By: RUY Docusate Sodium (Docusate Sodium 100 Mg Capsule) 100 mg PO BID [facility] Last Admin: 05/06/23 08:22 Dose: 100 mg Documented By: RUY Enoxaparin Sodium (Enoxaparin Sodium 40 Mg/0.4 Ml Syringe) 40 mg SUBCUT Q24H [facility] Last Admin: 05/06/23 05:26 Dose: 40 mg Documented By: ONEYDA Hydromorphone HCl (Hydromorphone Hcl 1 Mg/Ml Syringe) 1 mg IVPUSH Q4H PRN; Protocol PRN Reason: Pain, Severe (Pain Scale 7-10) Last Admin: 05/06/23 05:26 Dose: 1 mg Documented By: ONEYDA Promethazine HCl 12.5 mg/ (Sodium Chloride) 50.5 mls @ 202 mls/hr IV Q4H PRN PRN Reason: Nausea and Vomiting Last Infusion: 05/01/23 11:32 Dose: Infused Documented By: CARMELO Piperacillin Sod/Tazobactam (Sod 3.375 gm/ Sodium Chloride) 50 mls @ 100 mls/hr IV Q6H [facility] Last Infusion: 05/06/23 05:33 Dose: Infused Documented By: ONEYDA Melatonin (Melatonin 3 Mg Tablet) 6 mg PO BEDTIME PRN PRN Reason: Insomnia Last Admin: 05/04/23 20:45 Dose: 6 mg Documented By: NAZARIO Ondansetron HCl (Ondansetron Hcl 4 Mg/2 Ml Vial) 4 mg IVPUSH Q8H PRN PRN Reason: Nausea and Vomiting Last Admin: 05/06/23 00:39 Dose: 4 mg Documented By: ONEYDA Oxycodone HCl (Oxycodone Hcl Immed Release 5 Mg Tablet) 5 mg PO Q6H PRN PRN Reason: Pain, Severe (Pain Scale 7-10) Last Admin: 05/05/23 06:05 Dose: 5 mg Documented By: NAZARIO Polyethylene Glycol (Polyethylene Glycol 3350 17 Gm Powd.Pack) 17 gm PO DAILY PRN PRN Reason: Pain, Severe (Pain Scale 7-10) Sodium Chloride (0.9 % Sodium Chloride Flush 3 Ml Syringe) 3 ml IVFLUSH QSHIFT [facility] Last Admin: 05/06/23 08:23 Dose: 3 ml Documented By: RUY Labs 05/06/23 05:37 05/06/23 05:37 Labs: Laboratory Results - last 24 hr 05/05/23 05/06/23 10:25 05:37 MCV 84.4 86.2 MCH 26.8 L 26.9 L MCHC 31.7 31.2 RDW 14.7 14.5 Plt Count 417 H 474 H MPV 9.7 9.9 Absolute Nucleated RBC 0.000 0.000 Nucleated RBC % (auto) 0.0 0.0 Anion Gap 17 Estim Creat Clear Calc 178.8 Estimated GFR > 60 Random Glucose 79 Calcium 9.2 Total Bilirubin 0.9 Direct Bilirubin 0.7 H AST 20 ALT 78 H Alkaline Phosphatase 202 H Total Protein 6.7 Albumin 3.1 L Lipase 51 Assessment and Plan (1) Acute pancreatitis: Status: Acute Plan This is a 22-year-old female with pertinent history of gastroesophageal reflux disease who presents to the emergency department for evaluation of abdominal pain. #. Acute pancreatitis, likely from reatained stone -s/p recent laparoscopic cholecystectomy on 04/21. CT 05/01 cute interstitial edematous pancreatitis, with extensive peripancreatic fluid. Repeat CT 05/03 unchanged. Lipase 04/30 > 3000-->1261 on 05/02-->51 on 05/05. MRCP 05/01 no stone. TG nl, no alcohol use. LFTs trending down. -continue liquid diet and advance as tolerated, ? need to repeat CT, will discuss with Dr. Shin.. She has been on Zosyn empirically for WBC reaching 20K 0n 05/03 #. Elevated liver enzymes--improving, follow level #. Hypokalemia--replace orally #. Ileus on CT, related to above, monitor if worse surgery input #. Leukocytosis, likely reactive, (trending juan) #. (Hypoxia)Decrease O2 sat to 91, likely atectasis from pancreatitis, incentive spirometry, CXR no infiltrate, pulmonary vascular congestion but no overt edema, given 1 dose of Lasix 40 mg on 05/05 #. Obesity: Counseled regarding diet and exercise Full code out of bed, ambulate lovenox for dvt prophylaxis Nee for inpatient: Acute pancreatitis, needing IV narc, Time Spent With Patient Time: Total time managing care of this patient today ____ minutes. Quality Stroke Does the patient have a stroke diagnosis?: No VTE Prior VTE?: No VTE Risk Level:: Medical - moderate - high VTE Device Contraindication: Treatment Not Indicated VTE Drug Contraindication: N/A - Med Ordered
[2023-05-06] MEDS: Potassium Chloride ER 20 MEQ TAB.ER.PRT 40 MEQ PO (09:58)
--- NOTE | 2023-05-06 11:21 | PM.CNPUL ---
History of Present Illness History of Present Illness Consult date: 05/06/23 Reason for consult: dyspnea and hypoxemia Chief complaint: Abdominal pain Narrative: PULMONARY CONSULTATION. I have seen this young lady this morning for pulmonary. Evaluation and advice Her mother was also present in the room. This is a 22-year-old female with past medical history of GERD, morbid obesity, and no definite chronic respiratory problem. She does state that she has had pneumonia a few times but recovered fully in the past. She is status post cholecystectomy 04/21/23, from which she had recovered fairly well She presented to the hospital for abdominal pain. History obtained the patient, who states that even post-cholecystectomy, continued to have similar pain to what she had before her gallbladder surgery. However as she was able to tolerate PO was discharged home with watchful management. Patient was seen in the emergency room on 04/27 for severe abdominal pain and underwent a CT scan which was negative for any bile leak, CBD at that time 1.1 cm. No definite stone reported in the common bile duct , but review by pile driving supervisor Dr. Shin indicates that she may have had a small punctate stone. She was discharged from the emergency room with the management for constipation. But she return to the emergency room on 04/30 with ongoing epigastric pain nausea and vomiting, not tolerating even liquid diet. Workup showed that she had elevated serum lipase to 3000, also some elevation of LFTs , and CT scan of the abdomen consistent with acute pancreatitis with gloria pancreatic inflammation. She is being treated conservatively for acute pancreatitis, and clinically she is gradually improving. Patient started having mild dyspnea and O2 sats were noted to be down so she is feeling better with oxygen supplementation, now requiring 2 L/minute. She has very little cough or wheezing. In the past she has no history of bronchial asthma or chronic obstructive pulmonary disease, *SHE IS NONSMOKER SHE DOES HAVE HISTORY OF MORBID OBESITY BUT AT THIS POINT SHE IS NOT FULLY AWARE OF ANY SYMPTOMS OF OBSTRUCTIVE SLEEP APNEA. Review of Systems Review of Systems: Yes all other systems are reviewed and are negative PMF Past Medical History Medical History (Updated 05/06/23 @ 11:35 by Rashid Nix MD) Acute respiratory insufficiency Atelectasis, bilateral Morbid obesity with BMI of 40.0-44.9, adult GERD (gastroesophageal reflux disease) Surgical History Surgical History (Updated 05/06/23 @ 11:35 by Rashid Nix MD) Status post cholecystectomy History of laparoscopic cholecystectomy (04/21/23) Social History Social History Household Members: Family Household Members Other:: Mother and Father. Housing: House Do you presently have visiting nurse or other home services: No Alcohol intake: never Patient Tobacco Use Status: Never used Tobacco e-Cigarette/Vaping Use: Never Used Second Hand Smoke Exposure: No service: No Current occupational status: employed Current occupation: [employer] Current occupational exposures/hazards: No Sexual orientation: Straight/Heterosexual Gender identity: Female Cognitive needs: No Hearing needs: No Vision needs: No Meds Allergies Allergy/AdvReac Type Severity Reaction Status Date / Time No Known Allergies Allergy Verified 04/21/23 11:36 Active Medications: Current Medications Acetaminophen (Acetaminophen 325 Mg Tablet) 650 mg PO Q6H PRN PRN Reason: Pain, Mild (Pain Scale 1-3) Last Admin: 05/06/23 08:22 Dose: 650 mg Docusate Sodium (Docusate Sodium 100 Mg Capsule) 100 mg PO BID [facility] Last Admin: 05/06/23 08:22 Dose: 100 mg Enoxaparin Sodium (Enoxaparin Sodium 40 Mg/0.4 Ml Syringe) 40 mg SUBCUT Q24H [facility] Last Admin: 05/06/23 05:26 Dose: 40 mg Hydromorphone HCl (Hydromorphone Hcl 1 Mg/Ml Syringe) 1 mg IVPUSH Q4H PRN; Protocol PRN Reason: Pain, Severe (Pain Scale 7-10) Last Admin: 05/06/23 09:58 Dose: 1 mg Promethazine HCl 12.5 mg/ (Sodium Chloride) 50.5 mls @ 202 mls/hr IV Q4H PRN PRN Reason: Nausea and Vomiting Last Infusion: 05/01/23 11:32 Dose: Infused Piperacillin Sod/Tazobactam (Sod 3.375 gm/ Sodium Chloride) 50 mls @ 100 mls/hr IV Q6H [facility] Last Infusion: 05/06/23 05:33 Dose: Infused Melatonin (Melatonin 3 Mg Tablet) 6 mg PO BEDTIME PRN PRN Reason: Insomnia Last Admin: 05/04/23 20:45 Dose: 6 mg Ondansetron HCl (Ondansetron Hcl 4 Mg/2 Ml Vial) 4 mg IVPUSH Q8H PRN PRN Reason: Nausea and Vomiting Last Admin: 05/06/23 00:39 Dose: 4 mg Oxycodone HCl (Oxycodone Hcl Immed Release 5 Mg Tablet) 5 mg PO Q6H PRN PRN Reason: Pain, Severe (Pain Scale 7-10) Last Admin: 05/05/23 06:05 Dose: 5 mg Polyethylene Glycol (Polyethylene Glycol 3350 17 Gm Powd.Pack) 17 gm PO DAILY PRN PRN Reason: Pain, Severe (Pain Scale 7-10) Sodium Chloride (0.9 % Sodium Chloride Flush 3 Ml Syringe) 3 ml IVFLUSH QSHIFT [facility] Last Admin: 05/06/23 08:23 Dose: 3 ml Physical Exam Vital Signs: Vital Signs: Last Vital Signs Temp 97.9 F 05/06/23 07:37 Pulse 96 05/06/23 07:37 Resp 16 05/06/23 07:37 BP 111/68 05/06/23 07:37 Pulse Ox 90 L 05/06/23 07:37 O2 Del Method Nasal Cannula 05/06/23 07:37 O2 Flow Rate 2 05/06/23 07:37 BMI result Body Mass Index 46.3 Const: General: comfortable, no acute distress, alert and awake Orientation/consciousness: patient oriented x3 HEENT: Head: Yes normal to inspection General nose exam: No nasal polyps present and No nasal discharge present Face and sinus: Yes sinuses nontender Mouth: oropharynx normal Throat: Yes posterior oropharynx normal Eyes: General: appearance normal, both eyes and all related structures Neck: Neck: Yes normal visual inspection, Yes no lymphadenopathy, Yes trachea midline and Yes no JVD Thyroid: Thyroid normal Chest: Chest palpation & inspection: normal inspection of the chest, normal palpation of entire chest wall and no tenderness Resp: Other: PERCUSSION NOTE IS SOMEWHAT DULL OVER THE BASILAR AREAS. BREATH SOUNDS ARE DIMINISHED OVER BOTH BASIS. NO PLEURAL RUB, NO WHEEZES, AND NO CREPITATIONS. Cardio: Palpation: normal PMI Rate: regular rate Rhythm: regular rhythm Heart sounds: no gallops and no murmurs Peripheral pulses: Peripheral pulses 2+ throughout GI: Other: LIMITED EXAM, ABDOMEN IS MODERATELY OBESE AND TENDER IN THE EPIGASTRIC AREA Palpation (GI): Soft to palpation, nontender and no masses Neuro: General: patient oriented x3 and no focal motor deficits Cranial nerves: Yes CN's II-XII intact bilaterally Extrem: General: Yes normal to inspection, Yes no clubbing, cyanosis or edema and Yes no calf tenderness Psych: Speech and movement: Normal speech and movement present Results Laboratory Findings 05/06/23 05:37 05/06/23 05:37 Abnormal lab findings: Abnormal Labs 04/30/23 05/01/23 05/01/23 20:57 04:54 08:22 WBC 13.4 H 14.1 H RBC Hgb Hct MCH 26.6 L 26.6 L Plt Count 570 H 604 H MPV 9.2 L Neut % (Auto) 80.4 H 85.2 H Lymph % (Auto) 13.8 L 9.1 L Abs Immat Gran (auto) 0.04 H Absolute Neuts (auto) 10.8 H 12.0 H Potassium Carbon Dioxide 20 L 21 L BUN 7 L Random Glucose 150 H 137 H Total Bilirubin 3.9 H 3.7 H Direct Bilirubin AST 339 H 305 H ALT 591 H 548 H Alkaline Phosphatase 342 H 346 H Total Protein Albumin Lipase > 3000 H Urine Protein 30 (1+) H Urine Blood Large (3+) H Ur Leukocyte Esterase Small (1+) H Urine RBC >20 H Urine WBC 21-50 H 05/02/23 05/03/23 05/03/23 08:34 08:40 12:59 WBC 19.4 H RBC Hgb 11.6 L Hct 35.5 L MCH Plt Count 464 H MPV Neut % (Auto) Lymph % (Auto) Abs Immat Gran (auto) Absolute Neuts (auto) Potassium Carbon Dioxide BUN Random Glucose Total Bilirubin 3.8 H 1.6 H Direct Bilirubin 3.0 H 1.1 H AST 169 H 68 H ALT 378 H 241 H Alkaline Phosphatase 401 H 351 H Total Protein 6.1 L Albumin 3.3 L 3.0 L Lipase 1261 H 150 H Urine Protein Urine Blood Ur Leukocyte Esterase Urine RBC Urine WBC 05/04/23 05/05/23 05/06/23 08:44 10:25 05:37 WBC 14.9 H 14.9 H 12.3 H RBC 3.79 L 3.66 L 3.76 L Hgb 10.3 L 9.8 L 10.1 L Hct 32.5 L 30.9 L 32.4 L MCH 26.8 L 26.9 L Plt Count 433 H 417 H 474 H MPV Neut % (Auto) Lymph % (Auto) Abs Immat Gran (auto) Absolute Neuts (auto) Potassium 3.0 L Carbon Dioxide BUN 4 L 4 L Random Glucose Total Bilirubin 1.2 H Direct Bilirubin 0.8 H 0.7 H AST ALT 155 H 78 H Alkaline Phosphatase 266 H 202 H Total Protein 6.2 L Albumin 3.0 L 3.1 L Lipase Urine Protein Urine Blood Ur Leukocyte Esterase Urine RBC Urine WBC Microbiology: Microbiology 05/01/23 Unknown Urine clean catch - Urine pressley top Urine Culture - Final Diagnostic Findings Chest x-ray: report reviewed and image reviewed CT scan - chest: report reviewed and image reviewed Assessment and Plan (1) Status post cholecystectomy: Status: Acute (2) Acute pancreatitis: Status: Acute (3) Atelectasis, bilateral: Status: Acute (4) Acute respiratory insufficiency: Status: Acute Plan THIS 22 YEARS OLD FEMALE HAS BIBASILAR ATELECTASIS MORE PRONOUNCED ON THE LEFT SIDE, WHICH IS COMMON COMPLICATION AFTER ACUTE PANCREATITIS. SHE HAS RESPIRATORY INSUFFICIENCY CAUSING HYPOXEMIA SECONDARY TO ABOVE. SHE DOES NOT HAVE ANY ACUTE BACTERIAL INFECTION/PNEUMONIA, LEUKOCYTOSIS IS SECONDARY TO PERIPANCREATIC INFLAMMATION/INFECTION, FOR WHICH PIPRACILLIN IS ADEQUATE. TREATMENT FOR ATELECTASIS/ HYPOXEMIA IS INCENTIVE SPIROMETRY , Q 2 HOURS WHILE AWAKE AND O2 SUPPLEMENTATION TO KEEP O2 SAT ABOVE 90%. HER ATELECTASIS IMPROVES, , WITH IMPROVED VENTILATION HYPOXEMIA SHOULD RESOLVE . THANK YOU VERY MUCH FOR ASTHMA TO SEE THIS PATIENT. Time Spent With Patient Time: Total time managing care of this patient today ____ minutes. Procedures Date of Service Date of Service: 05/06/23
[2023-05-06 16:00] VITALS: BP 113/68; PULSE 96; RESP 20; TEMP 36.6; O2SAT 97
[2023-05-06] MEDS: HYDROmorphone HCl 2 MG TABLET PO ×2 (17:58→22:26)
[2023-05-06 19:51] VITALS: BP 134/80; PULSE 91; RESP 14; TEMP 36.6; O2SAT 97
[2023-05-06] MEDS: Melatonin 3 MG TABLET 6 MG PO (23:46)
[2023-05-07] MEDS: 0.9 % Sodium Chloride Flush 3 ML SYRINGE IVFLUSH ×2 (00:18→07:45)
[2023-05-07] MEDS: HYDROmorphone HCl 2 MG TABLET PO (02:56)
[2023-05-07 03:19] VITALS: BP 130/76; PULSE 91; RESP 14; TEMP 36.9; O2SAT 96
[2023-05-07] MEDS: Piperacillin Sodium/Tazobactam 3.375 GM in 0.9 % Sodium Chloride 50 ML IV (05:08)
[2023-05-07] MEDS: Enoxaparin Sodium 40 MG/0.4 ML SYRINGE SUBCUT (05:08)
[2023-05-07 07:33] VITALS: BP 128/76; PULSE 93; RESP 18; TEMP 36.6; O2SAT 97
[2023-05-07] MEDS: Acetaminophen 325 MG TABLET 650 MG PO (07:42)
[2023-05-07] MEDS: Docusate Sodium 100 MG CAPSULE PO (07:43)
[2023-05-07 07:47] VITALS: O2SAT 95
--- NOTE | 2023-05-07 09:10 | P.DS_ITS ---
DS: Providers Provider Date of Service: 05/07/23 Date of admission: 05/01/23 03:00 Primary care physician: MANNIE Yancey Consults: 05/02/23 11:58 Consult to Gastroenterology Routine Consulting Provider: Angie Sihn Reason for consultation: acute extensive pancreatitis 05/06/23 09:04 Consult to Pulmonology Routine Consulting Provider: [facility] Reason for consultation: hypoxia in pancreatitis pat Has provider been notified: No DS: Diagnosis Discharge Diagnosis (1) Status post cholecystectomy: Status: Acute (2) Acute pancreatitis: Status: Acute (3) Atelectasis, bilateral: Status: Acute (4) Acute respiratory insufficiency: Status: Acute DS: Summary Hospital Course Hospital Course: Chief Complaint: epigastric pain This is a 22-year-old female with pertinent history of gastroesophageal reflux disease who presents to the emergency department for evaluation of abdominal pain. Patient states it started 1 day prior to presentation, epigastric region, constant, progressive and without any relieving factors. Also has associated nausea and vomiting. Unable to keep anything down. Unable to tolerate p.o. intake. Patient recently had laparoscopic cholecystomy and was discharged on 04/25. Patient returned to the ER on 04/27 with abdominal discomfort where imaging showed constipation. She was sent home and asked to take magnesium citrate. Patient states she took magnesium citrate which caused multiple loose bowel movements but her abdominal pain returned 1 day prior to presentation. Denies smoking marijuana or significant alcohol use. Also has associated chills. No fever, chest discomfort, palpitations, shortness of breath, changes in urinary habits. In the emergency department, imaging with pancreatitis and lipase found to be elevated. Hospital course: The patient presented with abdominal pain approximately one week after undergoing cholecystectomy. A CT scan revealed findings consistent with acute pancreatitis. The initial Lipase level was elevated, exceeding 3000. Consequently, the patient was admitted for pain management, IV hydration, and close monitoring. Subsequently, her Lipase levels gradually decreased, reaching 1261 the following day and 150 on the subsequent day, ultimately returning to within the normal range as of May 05. The rapid decline in Lipase levels suggests a probable passage of a stone, even though no stone was observed on the MRCP performed the day after admission. The patient was evaluated by Dr. Shin, who recommended a repeat CT scan after 72 hours, which revealed no deterioration of the pancreatitis. Her pain has significantly improved, and her diet has advanced to a low-fat regimen which she is tolerating. Her white blood cell count increased significantly from 14 at admission to 19 two days later. This was believed to be a reactive process, but as a precautionary measure, empirical antibiotics (Zosyn) were administered. Additionally, the patient experienced low oxygen saturation, and a chest X-ray showed atelectasis likely related to pancreatitis. She successfully used incentive spirometry, and her condition has improved to the point where she is now mobile and will be discharged to continue her recovery at home. Final diagnosis: Acute pancreatitis Abdominal pain Acute hypoxic respiratoy failure due to atlecatsis Obesity Time Spent with Patient Time attestation: Total time managing care of this patient today ____ minutes. Discharge coordination time: Greater than 30 minutes Quality: Safe Use of Opioids Does Pt have an Active Cancer Diagnosis on the Problem List?: No Quality: Stroke Does the patient have a stroke diagnosis?: No Physical Exam Vital Signs: Vital Signs: Last Vital Signs Temp 97.8 F 05/07/23 07:33 Pulse 93 05/07/23 07:33 Resp 18 05/07/23 07:33 BP 128/76 05/07/23 07:33 Pulse Ox 95 05/07/23 07:47 O2 Del Method Room Air 05/07/23 07:47 O2 Flow Rate 1.5 05/07/23 07:33 BMI result Body Mass Index 46.3 Const: Other: General: AO X 3, no acute distress Resp: CTA bilateral CVS: S1,S2,RRR GI: +BS, NT, no distention Skin: No rash Neuro: motor grossly intact Psych: appropriate affect DS: Data Data Completed and Pending Completed studies during hospitalization [Text1]: Procedures Resection of Gallbladder, Percutaneous Endoscopic Approach (04/20/23) Discharge Plan Discharge Anticipated Discharge Date/Time: 05/07/23 11:42 Patient Disposition: Home, Self-Care Discharge Diagnosis: Acute pancreatitis Referrals: Roderick Cantor FNP-BC [Primary Care Provider] - 1 Week Discharge Medications: New hydromorphone [Dilaudid] 2 mg tablet 2 mg PO Q6H PRN (Reason: pain (scale score 7-10)) Qty: 10 0RF Rx Instructions: Partial Fill upon patient request. Continued pantoprazole 20 mg tablet,delayed release (/EC) 20 mg PO DAILY Qty: 90 0RF Discharge Orders: Discharge Order (Routine); Ordered 05/07/23 Ordered By: Bhavesh Albarado Diet: Advance to usual diet Activity on Discharge: As tolerated Stand Alone Forms: Patient Portal Discharge page, Work/School Release Care Plan Goals: Recovery from pancreatitis Health Concerns: acute pancreatitis Plan of Treatment: Eat low fat diet, dilaudid for pain as needeed follow up with your doctor in a week to 10 days Assessment: as above Discharge Date/Time: 05/07/23 13:04
--- NOTE | 2023-05-07 10:54 | P.PNIM_ITS ---
Subjective Subjective Date of Service: 05/07/23 Interval History: Continue to improve, pain better, tolerating present diet Physical Exam 2 Vital Signs: Vital Signs: Last Vital Signs Temp 97.8 F 05/07/23 07:33 Pulse 93 05/07/23 07:33 Resp 18 05/07/23 07:33 BP 128/76 05/07/23 07:33 Pulse Ox 95 05/07/23 07:47 O2 Del Method Room Air 05/07/23 07:47 O2 Flow Rate 1.5 05/07/23 07:33 BMI result Body Mass Index 46.3 Const: Other: General: AO X 3, no acute distress Resp: CTA bilateral CVS: S1,S2,RRR GI: +BS, NT, no distention Skin: No rash Neuro: motor grossly intact Psych: appropriate affect Objective Data Active Medications Acetaminophen (Acetaminophen 325 Mg Tablet) 650 mg PO Q6H PRN PRN Reason: Pain, Mild (Pain Scale 1-3) Last Admin: 05/07/23 07:42 Dose: 650 mg Documented By: RUY Docusate Sodium (Docusate Sodium 100 Mg Capsule) 100 mg PO BID [facility] Last Admin: 05/07/23 07:43 Dose: 100 mg Documented By: RUY Enoxaparin Sodium (Enoxaparin Sodium 40 Mg/0.4 Ml Syringe) 40 mg SUBCUT Q24H [facility] Last Admin: 05/07/23 05:08 Dose: 40 mg Documented By: ONEYDA Hydromorphone HCl (Hydromorphone Hcl 2 Mg Tablet) 2 mg PO Q4H PRN PRN Reason: Pain, Severe (Pain Scale 7-10) Last Admin: 05/07/23 02:56 Dose: 2 mg Documented By: ONEYDA Promethazine HCl 12.5 mg/ (Sodium Chloride) 50.5 mls @ 202 mls/hr IV Q4H PRN PRN Reason: Nausea and Vomiting Last Infusion: 05/01/23 11:32 Dose: Infused Documented By: CARMELO Piperacillin Sod/Tazobactam (Sod 3.375 gm/ Sodium Chloride) 50 mls @ 100 mls/hr IV Q6H [facility] Last Infusion: 05/07/23 07:39 Dose: Infused Documented By: ONEYDA Melatonin (Melatonin 3 Mg Tablet) 6 mg PO BEDTIME PRN PRN Reason: Insomnia Last Admin: 05/06/23 23:46 Dose: 6 mg Documented By: ONEYDA Ondansetron HCl (Ondansetron Hcl 4 Mg/2 Ml Vial) 4 mg IVPUSH Q8H PRN PRN Reason: Nausea and Vomiting Last Admin: 05/06/23 18:06 Dose: 4 mg Documented By: RAEGAN Oxycodone HCl (Oxycodone Hcl Immed Release 5 Mg Tablet) 5 mg PO Q6H PRN PRN Reason: Pain, Severe (Pain Scale 7-10) Last Admin: 05/05/23 06:05 Dose: 5 mg Documented By: NAZARIO Polyethylene Glycol (Polyethylene Glycol 3350 17 Gm Powd.Pack) 17 gm PO DAILY PRN PRN Reason: Pain, Severe (Pain Scale 7-10) Sodium Chloride (0.9 % Sodium Chloride Flush 3 Ml Syringe) 3 ml IVFLUSH QSHIFT PRIYA Last Admin: 05/07/23 07:45 Dose: 3 ml Documented By: JAKYAMER Labs 05/06/23 05:37 05/06/23 05:37 Assessment and Plan (1) Acute pancreatitis: Status: Acute Plan This is a 22-year-old female with pertinent history of gastroesophageal reflux disease who presents to the emergency department for evaluation of abdominal pain. #. Acute pancreatitis, likely from reatained stone -s/p recent laparoscopic cholecystectomy on 04/21. CT 05/01 cute interstitial edematous pancreatitis, with extensive peripancreatic fluid. Repeat CT 05/03 unchanged. Lipase 04/30 > 3000-->1261 on 05/02-->51 on 05/05. MRCP 05/01 no stone. TG nl, no alcohol use. LFTs trending down. -continue liquid diet and advance as tolerated, ? need to repeat CT, will discuss with Dr. Shin.. She has been on Zosyn empirically for WBC reaching 20K 0n 05/03 #. Elevated liver enzymes--improving, follow level #. Hypokalemia--replace orally, recheck lab #. Ileus on CT, related to above, monitor if worse surgery input #. Leukocytosis, likely reactive, (trending juan) #. (Hypoxia)Decrease O2 sat to 91, likely atectasis from pancreatitis, incentive spirometry, CXR no infiltrate, pulmonary vascular congestion but no overt edema, given 1 dose of Lasix 40 mg on 05/05. Wean off O2 #. Obesity: Counseled regarding diet and exercise Full code out of bed, ambulate lovenox for dvt prophylaxis Nee for inpatient: Acute pancreatitis, needing IV narc, Out of bed, ambulate, Time Spent With Patient Time: Total time managing care of this patient today ____ minutes. Quality Stroke Does the patient have a stroke diagnosis?: No VTE Prior VTE?: No VTE Risk Level:: Medical - moderate - high VTE Device Contraindication: Treatment Not Indicated VTE Drug Contraindication: N/A - Med Ordered
[2023-05-07 11:14] VITALS: O2SAT 92
--- NOTE | 2023-05-07 12:01 | MHC.CM.PN ---
PT WILL DC HOME TODAY WITH NO SERVICES VIA FAMILY TRANSPORT
== END 2023-05-07 13:04 | disposition home or self-care (01) | DRG 282 ==
LOC: HO.ED 05-01 00:44 → HO.EDOVER 05-01 03:07 → HO.S3 05-01 15:18
PROVIDERS: Internal Medicine; Admitting Provider Student in an Organized Health Care Education/Training Program; Emergency Provider Internal Medicine; PCP Nurse Practitioner Family; Visit Provider Internal Medicine
DX: K85.10 Biliary acute pancreatitis without necrosis or infection (principal); J96.01 Acute respiratory failure with hypoxia; K56.7 Ileus, unspecified; E87.6 Hypokalemia; J98.11 Atelectasis; K21.9 Gastro-esophageal reflux disease without esophagitis; Z68.42 Body mass index [BMI] 45.0-49.9, adult; E66.01 Morbid (severe) obesity due to excess calories; Z79.899 Other long term (current) drug therapy
CPT/HCPCS: 36415; 71046; 74176; 74181; 76705; 80048; 80053; 80076; 81001; 83690; 83735; 84478; 85025; 85027; 87086; 99285; J1170; J1650; J1940; J2405; J2543; J2550

== ENCOUNTER → 2023-05-01 03:00 | Outpatient (BNV) | payer OTHER, SELFPAY | PROVIDERS: Admitting Provider Student in an Organized Health Care Education/Training Program; Emergency Provider Internal Medicine; PCP Nurse Practitioner Family; Visit Provider Student in an Organized Health Care Education/Training Program | DX: Z90.49 Acquired absence of other specified parts of digestive tract (principal); K85.90 Acute pancreatitis without necrosis or infection, unspecified; J98.11 Atelectasis; R06.89 Other abnormalities of breathing | CPT/HCPCS: 99222; 99232; 99239 ==

== ENCOUNTER → 2023-05-01 03:00 | Outpatient (BNV) | payer OTHER, SELFPAY | PROVIDERS: Admitting Provider Student in an Organized Health Care Education/Training Program; Emergency Provider Internal Medicine; PCP Nurse Practitioner Family; Visit Provider Internal Medicine | DX: K85.10 Biliary acute pancreatitis without necrosis or infection (principal); R79.89 Other specified abnormal findings of blood chemistry | CPT/HCPCS: 99223; 99232 ==

== ENCOUNTER → 2023-05-01 03:00 | Outpatient (BNV) | payer OTHER, SELFPAY | PROVIDERS: Admitting Provider Student in an Organized Health Care Education/Training Program; Emergency Provider Internal Medicine; PCP Nurse Practitioner Family; Visit Provider Internal Medicine | DX: Z90.49 Acquired absence of other specified parts of digestive tract (principal); K85.90 Acute pancreatitis without necrosis or infection, unspecified; J98.11 Atelectasis; R06.89 Other abnormalities of breathing | CPT/HCPCS: 99222 ==

== ENCOUNTER 2023-05-12 11:04 | Outpatient (AMB) | payer OTHER, SELFPAY ==
--- NOTE | 2023-05-12 11:05 | A.OFFVIS_ITS ---
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 She attempts to eat healthy and stay active. Currently not sexually active. Went off BC a while ago due to migraines. She wants to stay off BC for now. Family hx of PCOS. Regular monthly periods. Just had her gallbladder removed last week. Had a pelvis CT and was found to also have a left ovarian cyst. Denies pain. Denies vaginal itching and irritation. STD screening offered; she declines. Denies family hx of breast, colon and ovarian cancer. Last pap smear 2021. [facility] Medical History Acute respiratory insufficiency Atelectasis, bilateral Morbid obesity with BMI of 40.0-44.9, adult GERD (gastroesophageal reflux disease) Surgical History Status post cholecystectomy History of laparoscopic cholecystectomy (04/21/23) Family History Paternal Grandmother Diabetes Father Diabetes Social History Household Members: Family Household Members Other:: Mother and Father. Housing: House Do you presently have visiting nurse or other home services: No Alcohol intake: never Patient Tobacco Use Status: Never used Tobacco e-Cigarette/Vaping Use: Never Used Second Hand Smoke Exposure: No service: No Current occupational status: employed Current occupation: [email or web address] Current occupational exposures/hazards: No Sexual orientation: Straight/Heterosexual Gender identity: Female Cognitive needs: No Hearing needs: No Vision needs: No Female Reproductive History Menstrual Age of Menarche: 8 Date of last menstrual period: 05/07/23 Total pregnancies: 0 Date of last pap smear: 05/10/22 Review of Systems Const All systems reviewed & are unremarkable except as noted in HPI and below Physical Exam Vital Signs: Last Vital Signs BP 122/84 05/12/23 11:14 BMI result Body Mass Index 46.9 Const General: cooperative, healthy appearing, no acute distress, well developed and alert Orientation/consciousness: patient oriented x3 HEENT Head: Yes normal to inspection Eyes General: appearance normal, both eyes and all related structures Neck Neck: Yes normal visual inspection Thyroid: Thyroid normal Chest Chest palpation & inspection: normal inspection of the chest Breast/axilla inspection: normal inspection of the breasts (no puckering, dimpling, peau de orange, retraction, discharge, masses) Breast/axilla palpation: normal palpation of the breasts Resp Effort & Inspection: normal respiratory effort GI Inspection: Yes normal to inspection, Yes obesity and Yes other (surgical scarring, healing well) Palpation (GI): Soft to palpation Rectal Exam - Female: deferred General: Yes bladder normal to palpation External Female Exam: normal external appearance and normal appearance of the urethra Speculum Exam - Vagina: normal appearance of the vagina, normal palpation and normal vaginal discharge Speculum Exam - Cervix: normal appearance of the cervix and normal palpation Bimanual exam- vagina & uterus: normal bimanual exam, normal palpation, uterine size normal, bladder normal to palpation and normal palpation Bimanual Exam- Adnexa, other: normal adnexae and no masses Skin General skin exam: no rashes or lesions noted Neuro General: patient oriented x3 Cognition (Neuro): normal cognition Extrem General: Yes normal to inspection Psych Attitude: cooperative Thought process: Normal thought process present Results Reviewed Results Reviewed: 04/20/23 CT IMPRESSION: 1. No acute intra-abdominal process seen. 2. Cholelithiasis without wall thickening or pericholecystic fluid collection. 3. Mild constipation. 4. Incidental finding of 2.4 cm lesion left adnexa likely ovarian cyst. Assessment & Plan Assessment & Plan (1) Encounter for well woman exam: Code(s): Z01.419 - Encounter for gynecological examination (general) (routine) without abnormal findings Plan: Discussed: Current recommendations for pap smears per ASCCP guidelines. Breast awareness and periodic self breast exams. Maintaining a healthy lifestyle including a well balanced diet and routine exercise. Encouraged condom use for STD and prevention. All of her questions and concerns were addressed to the best of my ability. RTO in one year for AG. (2) Migraines: Code(s): G43.909 - Migraine, unspecified, not intractable, without status migrainosus Plan: Consider seeing a headache specialist. She will speak to her PCP at her next visit. Headache diary given to patient. (3) Ovarian cyst: Code(s): N83.209 - Unspecified ovarian cyst, unspecified side Plan: Pelvic US ordered to be done in one month. If she develops any sx, contact office for further evaluation. RTO for TV test results. Orders: Orders US pelvic and transvaginal Today N83.209 - Unspecified ovarian cyst, unspecified side Coding Level of Care Code Est Pt Prev Care 18-39y(29815) Diagnoses Encounter for well woman exam Z01.419 Migraines G43.909 Ovarian cyst N83.209
[2023-05-12 11:14] VITALS: BP 122/84; BMI 46.9
== END 2023-05-12 11:40 | disposition home or self-care (01) ==
PROVIDERS: Visit Provider Advanced Practice Midwife
DX: Z01.419 Encounter for gynecological examination (general) (routine) without abnormal findings (principal); G43.909 Migraine, unspecified, not intractable, without status migrainosus; N83.209 Unspecified ovarian cyst, unspecified side
CPT/HCPCS: 99395

== ENCOUNTER → 2023-05-12 11:04 | Outpatient (BNVA) | payer OTHER, SELFPAY | PROVIDERS: Visit Provider Advanced Practice Midwife ==

== ENCOUNTER 2023-05-26 10:04 | Outpatient (REF) | payer OTHER, SELFPAY ==
[2023-05-26 13:14] LABS: MANUAL DIFF FLAG NO
[2023-05-26 13:32] LABS: Appearance Urine Clear; Color Urine Yellow; Glucose Urine UA Negative (Negative); Leukocyte Esterase Urine Negative (Negative); Nitrite Urine Negative (Negative); PH 6.5 (5.0-9.0); Urine Blood Negative (Negative); Urine Ketones Negative (Negative); Urine Protein Negative (Neg-Trace)
[2023-05-26 13:35] LABS: Basophils Percent Auto 0.4 % (0-2); Eosinophils Absolute Auto 0.2 X10*3/uL (0.0-0.4); Eosinophils Percent Auto 1.8 % (0-4); Hematocrit 40.5 % (37.0-47.0); Hemoglobin 12.7 g/dl (12.0-16.0); Imm Gran Abs Auto 0.02 X10*3/uL (0.00-0.03); Imm Gran Pct Auto 0.2 % (0.0-0.4); Lymphocytes Absolute Auto 2.7 X10*3/uL (1.2-4.9); Lymphocytes Percent Auto 27.4 % (20-40); Mean Corpuscular HGB Conc 31.4 g/dl (31.0-35.0); Mean Corpuscular Hemoglobin 26.2 pg (27.0-33.0); Mean Corpuscular Volume 83.7 fL (80.0-98.0); Monocytes Absolute Auto 0.5 X10*3/uL (0.1-1.2); Monocytes Percent Auto 4.9 % (2-11); Neutrophils Absolute Auto 6.4 x10*3/uL (2.0-8.3); Neutrophils Percent Auto 65.3 % (45-73); Platelet Count 364 X10*3/uL (160-400); Red Blood Count 4.84 X10*6/uL (4.20-5.50); Red Cell Distribution Width 14.9 % (11.0-16.0); White Blood Count 9.8 X10*3/uL (4.8-10.8)
[2023-05-26 14:01] LABS: Alanine Aminotransferase 46 U/L (0-31); Albumin Level 3.8 g/dL (3.5-5.0); Alkaline Phosphatase 115 U/L (39-117); Amylase 32 U/L (28-100); Anion Gap 9 (12-20); Aspartate Amino Transferase 37 U/L (5-31); Bilirubin Total 0.6 mg/dL (0.0-1.0); Blood Urea Nitrogen 9 mg/dL (9-16); Calcium 8.9 mg/dL (8.4-10.2); Carbon Dioxide 26 mmol/L (22-29); Chloride 108 mmol/L (96-108); Cholesterol 141 mg/dL (<200); Estimated Glomerular Filt Rate > 60; Glucose Fasting 88 mg/dL (60-99); Glucose Random 88 mg/dL (60-115); HDL Cholesterol 48 mg/dL (>40); LDL Cholesterol Calculated 78 mg/dL (<100); Lipase 24 U/L (8-78); Potassium 3.7 mmol/L (3.3-5.1); Sodium 139 mmol/L (135-145); TSH reflex Free T4 0.79 uIU/mL (0.32-4.0); Total Protein 7.1 g/dL (6.5-8.0); Triglycerides 76 mg/dL (<150)
== END 2023-05-26 10:05 | disposition home or self-care (01) ==
LOC: HO.HMGCLDS 10:04
PROVIDERS: PCP Nurse Practitioner Family; Visit Provider Nurse Practitioner Family
DX: Z00.00 Encounter for general adult medical examination without abnormal findings (principal); K85.90 Acute pancreatitis without necrosis or infection, unspecified; Z13.29 Encounter for screening for other suspected endocrine disorder
CPT/HCPCS: 36415; 80053; 80061; 81003; 82150; 83690; 84443; 85025

== ENCOUNTER 2023-05-29 07:51 | Outpatient (AMB) | payer OTHER, SELFPAY ==
[2023-05-29 08:17] VITALS: BP 100/60; PULSE 79; O2SAT 97; BMI 48.4
--- NOTE | 2023-05-29 08:17 | A.OFFPC_ITS ---
Vital Signs 05/29/23 08:17 Height 5 ft 1 in Weight 256 lb BMI 48.4 BP 100/60 Blood Pressure Location Rt brachial Position Sitting Pulse 79 Pulse Source Pulse Oximeter Pulse Oximetry (%) 97 Oxygen Delivery Method Room Air Intake Visit Reasons: HDF pancreatitis Intake Note: Pt is here today for her [facility] pancreatitis Allergies No Known Allergies Allergy (Verified 05/29/23 08:17) Tobacco use date assessed: 05/29/23 Dental Screening Dental Screen Date: 05/29/23 Did you have a dental visit in the last 12 months?: No Was dental information given to patient?: Yes HPI HPI Comments History of Present Illness Details The patient is a 22-year-old female in today for a follow-up visit from hospital discharge. She was discharged from [facility] on 05/07/2023 following a diagnosis of pancreatitis. She has a past medical history significant for GERD. She has a past surgical history significant for a cholecystectomy. She was discharged from the hospital with p.r.n. hydromorphone 2 mg, which she has not taken. She states she uses ibuprofen or Tylenol as needed, but has not had much pain or discomfort. She reports little to no bowel discomfort. Labs have been redrawn. Patient has been educated on the need to limit fat in diet. She has a follow-up with surgery status post lap jone on 06/02/2023. [facility] Medical History Acute respiratory insufficiency Atelectasis, bilateral Morbid obesity with BMI of 40.0-44.9, adult GERD (gastroesophageal reflux disease) Surgical History Status post cholecystectomy History of laparoscopic cholecystectomy (04/21/23) Family History Paternal Grandmother Diabetes Father Diabetes Social History Household Members: Family Household Members Other:: Mother and Father. Housing: House Do you presently have visiting nurse or other home services: No Alcohol intake: never Patient Tobacco Use Status: Never used Tobacco e-Cigarette/Vaping Use: Never Used Second Hand Smoke Exposure: No service: No Current occupational status: employed Current occupation: [employer] Current occupational exposures/hazards: No Sexual orientation: Straight/Heterosexual Gender identity: Female Cognitive needs: No Hearing needs: No Vision needs: Yes Female Reproductive History Menstrual Age of Menarche: 8 Questionnaire Thrive Questionnaire Date Thrive assessed: 05/01/23 CHARI-7 AMB Questionnaire CHARI-7 Date CHARI - 7 assessed: 02/14/22 Source: Developed by Drs. Maynor Rosales, Ellen Freire, Luiz Francis and colleagues, with an educational jin from [employer]. Review of Systems Const Details: Constitutional : No Weight loss, No Fever, No Chills, No Fatigue. Eyes: No Eye Pain, No Swelling, No Redness Cardiovascular : No Chest Pain Respiratory : No Wheezing Gastrointestinal : No Nausea, No Vomiting, No Diarrhea, No Constipation, No abdominal Pain, No Hematochezia, No Melena Genitourinary : No Dysuria Neuro : No Weakness, No Numbness, No Dizziness, No Headache : Patient two days late on menstrual cycle All other systems reviewed and are negative Physical exam (Primary Care) Vital Signs: Last Vital Signs Pulse 79 05/29/23 08:17 BP 100/60 05/29/23 08:17 Pulse Ox 97 05/29/23 08:17 Oxygen Delivery Method Room Air 05/29/23 08:17 BMI result Body Mass Index 48.4 Tobacco/Smoking Status: Tobacco use Status Tobacco use date assessed 05/29/23 05/29/23 08:19 Patient Tobacco Use Status Never used Tobacco 05/29/23 08:19 e-Cigarette/Vaping Use Never Used 05/29/23 08:19 Thrive Assessment: Date of Thrive Assessment Date Thrive assessed 05/01/23 05/29/23 08:19 Const General: cooperative, healthy appearing, comfortable and no acute distress Orientation/consciousness: patient oriented x3 HENMT Head: Yes normocephalic Neck Lymphatic: no lymphadenopathy noted Chest Chest palpation & inspection: normal inspection of the chest Resp Effort & Inspection: normal respiratory effort Auscultation: clear to auscultation bilaterally Cardio Jugular venous distension: no JVD Rate: regular rate Rhythm: regular rhythm Heart sounds: S1 normal heart sound present and S2 normal heart sound present GI Inspection: Yes normal to inspection Palpation (GI): Soft to palpation, Tenderness to palpation present (GI) in the epigastrum (Slight discomfort) and Other GI palpation findings present Percussion: Yes normal to percussion Auscultation: normal bowel sounds Neuro General: patient oriented x3 Psych Affect: normal affect Results Reviewed Results Reviewed: WBC 9.8 4.8-10.8 X10*3/uL RBC 4.84 # 4.20-5.50 X10*6/uL HGB 12.7 # 12.0-16.0 g/dl HCT 40.5 # 37.0-47.0 % MCV 83.7 80.0-98.0 fL MCH 26.2 L 27.0-33.0 pg MCHC 31.4 31.0-35.0 g/dl RDW 14.9 11.0-16.0 % PLT 364 160-400 X10*3/uL MPV 10.0 9.4-12.3 fL Neut Pct Auto 65.3 45-73 % ImGran Pct Auto 0.2 0.0-0.4 % Lymp Pct Auto 27.4 20-40 % Beadle Pct Auto 4.9 2-11 % Eos Pct Auto 1.8 0-4 % Baso Pct Auto 0.4 0-2 % NRBC Pct Auto 0.0 0.0-0.2 /100WBC ANC Neut Abs # 6.4 2.0-8.3 x10*3/uL ImGran Abs Auto 0.02 0.00-0.03 X10*3/uL Lymph Abs Auto 2.7 1.2-4.9 X10*3/uL Beadle Abs Auto 0.5 0.1-1.2 X10*3/uL Eos Abs Auto 0.2 0.0-0.4 X10*3/uL Baso Abs Auto 0.0 0.0-0.2 X10*3/uL NRBC Abs Auto 0.000 0.0-0.012 X10*3/uL Sodium 139 135-145 mmol/L Potassium 3.7 # 3.3-5.1 mmol/L CL 108 96-108 mmol/L CO2 26 22-29 mmol/L Gap 9 L 12-20 BUN 9 9-16 mg/dL Creat 0.56 0.5-1.4 mg/dL EGFR > 60 NOTE: For -[place]ian individuals, multiply the result by 1.210. Chronic Kidney Disease: Estimated GFR < 60 mL/min/1.73m2 Severe Kidney Disease: Estimated GFR < 15 mL/min/1.73m2 Glucose, Random 88 60-115 mg/dL FBS 88 60-99 mg/dL CA 8.9 8.4-10.2 mg/dL Total Bili 0.6 0.0-1.0 mg/dL AST (GOT) 37 H 5-31 U/L ALT (GPT) 46 H 0-31 U/L Protein, Total 7.1 6.5-8.0 g/dL Alb 3.8 3.5-5.0 g/dL Triglyceride 76 <150 mg/dL Desirable Triglyceride: less than 150 mg/dL Borderline High Triglyceride 150-199 mg/dL High Triglyceride: 200-499 mg/dL Very High Triglyceride: greater than or equal to 5OO mg/dL Cholesterol 141 <200 mg/dL Desirable Cholesterol: less than 200 mg/dL Borderline High Cholesterol: 200-239 mg/dL High Cholesterol: greater than 239 mg/dL LDL Calculated 78 <100 mg/dL Desirable LDL: less than 100 mg/dL Near Optimal/Above Optimal LDL: 110-129 mg/dL Borderline High LDL: 130-159 mg/dL High LDL: 160-189 mg/dL Very High LDL: greater than or equal to 190 mg/dL HDL 48 >40 mg/dL Desirable HDL: greater than 40 mg/dL Note: This HDL assay may give artificially low results in patients with liver disease. Alk Phos 115 39-117 U/L Anne 32 28-100 U/L Lipase 24 8-78 U/L TSH 0.79 0.32-4.0 uIU/mL Assessment and Plan Assessment & Plan (1) Hospital discharge follow-up: Code(s): Z09 - Encounter for follow-up examination after completed treatment for conditions other than malignant neoplasm Plan: Patient is here for follow-up after being admitted for pancreatitis. Patient h ad labs redrawn. She states slight discomfort in the epigastric area which is improved significantly since discharge. No bowel issues. Seems to be progressing well. Patient has follow-up appointment with surgeon status post cholecystectomy on 06/02/2023. Patient also states that she is 2 days late on her menstrual cycle, which is unusual for her. She has an appointment with POWER [facility]LE OPERATOR on 06/17/2023. Will order urine test to be taken today. Patient has been educated on concerning signs and symptoms and when to follow back up or present to the emergency room. She has been educated on the importance of limited fat diet and rest. Patient is agreeable to this plan Orders: Orders Ur Preg Test Today N83.209 - Unspecified ovarian cyst, unspecified side Comprehensive Met. Panel Today K85.90 - Acute pancreatitis without necrosis or infection, unspecified Lipase Today K85.90 - Acute pancreatitis without necrosis or infection, unspecified Amylase Today K85.90 - Acute pancreatitis without necrosis or infection, unspecified Coding Level of Care Code Est Pt Level 3 (76674) Diagnoses Hospital discharge follow-up Z09 Time Spent (min) 30
== END 2023-05-29 14:27 | disposition home or self-care (01) ==
PROVIDERS: PCP Nurse Practitioner Family; Visit Provider Nurse Practitioner Primary Care
DX: Z09 Encounter for follow-up examination after completed treatment for conditions other than malignant neoplasm (principal); K85.90 Acute pancreatitis without necrosis or infection, unspecified
CPT/HCPCS: 99214; 99499

== ENCOUNTER 2023-05-29 08:53 | Outpatient (REF) | payer OTHER, SELFPAY ==
[2023-05-29 11:13] LABS: MANUAL DIFF FLAG NO
[2023-05-29 11:24] LABS: UPreg QC Valid YES; Urine Pregnancy NEGATIVE (NEGATIVE)
[2023-05-29 11:26] LABS: Appearance Urine Clear; Color Urine Yellow; Glucose Urine UA Negative (Negative); Leukocyte Esterase Urine Negative (Negative); Nitrite Urine Negative (Negative); Specific Gravity - Urine 1.025 (1.005-1.025); Urine Blood Negative (Negative); Urine Ketones Negative (Negative); Urine Protein Negative (Neg-Trace)
[2023-05-29 11:36] LABS: Amylase 32 U/L (28-100)
[2023-05-29 11:43] LABS: Basophils Absolute Auto 0.1 X10*3/uL (0.0-0.2); Basophils Percent Auto 0.6 % (0-2); Eosinophils Absolute Auto 0.2 X10*3/uL (0.0-0.4); Eosinophils Percent Auto 2.1 % (0-4); Hematocrit 41.2 % (37.0-47.0); Hemoglobin 12.9 g/dl (12.0-16.0); Imm Gran Abs Auto 0.02 X10*3/uL (0.00-0.03); Imm Gran Pct Auto 0.2 % (0.0-0.4); Lymphocytes Absolute Auto 2.5 X10*3/uL (1.2-4.9); Lymphocytes Percent Auto 28.8 % (20-40); Mean Corpuscular HGB Conc 31.3 g/dl (31.0-35.0); Mean Corpuscular Hemoglobin 26.8 pg (27.0-33.0); Mean Corpuscular Volume 85.7 fL (80.0-98.0); Mean Platelet Volume 10.2 fL (9.4-12.3); Monocytes Absolute Auto 0.5 X10*3/uL (0.1-1.2); Monocytes Percent Auto 5.2 % (2-11); Neutrophils Absolute Auto 5.5 x10*3/uL (2.0-8.3); Neutrophils Percent Auto 63.1 % (45-73); Platelet Count 377 X10*3/uL (160-400); Red Blood Count 4.81 X10*6/uL (4.20-5.50); Red Cell Distribution Width 14.9 % (11.0-16.0); White Blood Count 8.7 X10*3/uL (4.8-10.8)
[2023-05-29 11:47] LABS: Alanine Aminotransferase 48 U/L (0-31); Alkaline Phosphatase 106 U/L (39-117); Anion Gap 11 (12-20); Aspartate Amino Transferase 30 U/L (5-31); Bilirubin Total 0.4 mg/dL (0.0-1.0); Blood Urea Nitrogen 13 mg/dL (9-16); Calcium 9.3 mg/dL (8.4-10.2); Carbon Dioxide 25 mmol/L (22-29); Chloride 106 mmol/L (96-108); Estimated Glomerular Filt Rate > 60; Glucose Random 98 mg/dL (60-115); Lipase 23 U/L (8-78); Potassium 3.9 mmol/L (3.3-5.1); Sodium 138 mmol/L (135-145); Total Protein 7.4 g/dL (6.5-8.0)
[2023-05-29 12:06] LABS: TSH reflex Free T4 0.72 uIU/mL (0.32-4.0)
== END 2023-05-29 08:54 | disposition home or self-care (01) ==
LOC: HO.HMGCLDS 08:53
PROVIDERS: PCP Nurse Practitioner Family; Visit Provider Nurse Practitioner Primary Care
DX: Z00.00 Encounter for general adult medical examination without abnormal findings (principal); K85.90 Acute pancreatitis without necrosis or infection, unspecified; N83.209 Unspecified ovarian cyst, unspecified side; Z13.29 Encounter for screening for other suspected endocrine disorder
CPT/HCPCS: 36415; 80053; 81003; 81025; 82150; 83690; 84443; 85025

== ENCOUNTER 2023-06-02 09:23 | Outpatient (AMB) | payer OTHER, SELFPAY ==
--- NOTE | 2023-06-02 09:24 | A.OFFVIS_ITS ---
Intake Vital Signs 06/02/23 09:26 Height 5 ft 1 in Weight 256 lb 9.889 oz BMI 48.5 BP 127/74 Blood Pressure Location Rt brachial Position Sitting Pulse 94 Pulse Source Pulse Oximeter Pulse Oximetry (%) 98 Oxygen Delivery Method Room Air Intake Visit Reasons: S/p lap jone Intake Note: Pt presents to the office todayfor s/p lap cholecystectomy. Pt states she is feeling much better and has any concerns at this time. Allergies No Known Allergies Allergy (Verified 06/02/23 09:29) HPI HPI Comments History of Present Illness Details 22-year-old female patient status post l aparoscopic cholecystectomy on 04/21/2023. She returns today for final postoperative check. She feels well and denies any ongoing abdominal symptoms. She is eating well without nausea, vomiting, diarrhea or constipation. She has not had her period since surgery. [facility] Medical History Acute respiratory insufficiency Atelectasis, bilateral Morbid obesity with BMI of 40.0-44.9, adult GERD (gastroesophageal reflux disease) Surgical History Status post cholecystectomy History of laparoscopic cholecystectomy (04/21/23) Family History Paternal Grandmother Diabetes Father Diabetes Social History Household Members: Family Household Members Other:: Mother and Father. Housing: House Do you presently have visiting nurse or other home services: No Alcohol intake: never Patient Tobacco Use Status: Never used Tobacco e-Cigarette/Vaping Use: Never Used Second Hand Smoke Exposure: No service: No Current occupational status: employed Current occupation: [employer] Current occupational exposures/hazards: No Sexual orientation: Straight/Heterosexual Gender identity: Female Cognitive needs: No Hearing needs: No Vision needs: Yes Female Reproductive History Menstrual Age of Menarche: 8 Physical Exam Vital Signs: Last Vital Signs Pulse 94 06/02/23 09:26 BP 127/74 06/02/23 09:26 Pulse Ox 98 06/02/23 09:26 Oxygen Delivery Method Room Air 06/02/23 09:26 BMI result Body Mass Index 48.5 Const General: comfortable and no acute distress Nutritional Appearance: well nourished Orientation/consciousness: patient oriented x3 Resp Effort & Inspection: normal respiratory effort GI Other: Trocar incisions are clean, dry, and intact without redness or discharge. Neuro General: patient oriented x3 Extrem General: Yes no clubbing, cyanosis or edema Assessment & Plan Assessment & Plan (1) Acute cholecystitis: Code(s): K81.0 - Acute cholecystitis (2) Acute gallstone pancreatitis: Code(s): K85.10 - Biliary acute pancreatitis without necrosis or infection Plan Patient is well healed following her laparoscopic cholecystectomy for gallstone pancreatitis. She may resume normal activity and should follow up as needed. Coding Level of Care Code Global (12825) Diagnoses Acute cholecystitis K81.0 Acute gallstone pancreatitis K85.10
[2023-06-02 09:26] VITALS: BP 127/74; PULSE 94; O2SAT 98; BMI 48.5
== END 2023-06-02 09:56 | disposition home or self-care (01) ==
PROVIDERS: PCP Nurse Practitioner Family; Visit Provider Surgery
DX: K81.0 Acute cholecystitis (principal); K85.10 Biliary acute pancreatitis without necrosis or infection
CPT/HCPCS: 99024

== ENCOUNTER → 2023-06-02 09:23 | Outpatient (BNVA) | payer OTHER, SELFPAY | PROVIDERS: PCP Nurse Practitioner Family; Visit Provider Surgery ==

== ENCOUNTER 2023-06-16 14:05 | Outpatient (REF) | payer OTHER, SELFPAY ==
--- NOTE | ~2023-06-16 | US_ITS ---
EXAMINATION: US PELVIS CLINICAL INFORMATION: Follow-up left ovarian cyst. LMP 06/08/2023 COMPARISON: CT abdomen/pelvis 05/06/2023 TECHNIQUE: Ultrasound of the pelvis is performed using both transabdominal and transvaginal transducers along with Doppler. Transvaginal imaging is performed due to inadequate visualization transabdominally. FINDINGS: Uterus: The uterus is anteverted. The uterus measures 6.5 x 3.2 x 4.6 cm. Uterine echotexture is heterogeneous. The endometrial stripe measures 0.7 cm thickness. Adnexa: Both ovaries are visualized. There is no pelvic ascites or fluid collection. Right ovary measures 2.9 x 1.1 x 1.7 cm. Left ovary measures 3.8 x 2.4 x 2.5 cm. US/US pelvic and transvaginal IMPRESSION: Unremarkable pelvic ultrasound.
== END 2023-06-16 14:06 | disposition home or self-care (01) ==
LOC: HO.HMGCX 14:05
PROVIDERS: PCP Nurse Practitioner Family; Visit Provider Advanced Practice Midwife
DX: N83.209 Unspecified ovarian cyst, unspecified side (principal)
CPT/HCPCS: 76830; 76856

== ENCOUNTER 2023-06-30 07:32 | Outpatient (AMB) | payer OTHER, SELFPAY ==
--- NOTE | 2023-06-30 07:38 | A.OFFVIS_ITS ---
Intake Vital Signs 06/30/23 07:44 Height 5 ft 1 in Intake Visit Reasons: Ultra sound follow up Carbon Brush Maker Required: No Information Interpreted: non-clinical & clinical Citrix Architect: Citrix Architect Present Accompanied by: Self / Same As Patient Allergies No Known Allergies Allergy (Verified 06/30/23 07:45) Is last menstrual period known: Yes Last menstrual period: 06/28/23 HPI HPI Comments History of Present Illness Details Patient is here today for follow-up ultrasound results from a previous history of a cyst. She reports cramping with her menses and the week before. She is not able to take any OTC medications due to her elevated liver functions. Menstrual cycles are regular intervals. She is using a heating pad for discomfort with her cycles. She is not sexually active. She declines a exam today [facility] Medical History Acute respiratory insufficiency Atelectasis, bilateral Morbid obesity with BMI of 40.0-44.9, adult GERD (gastroesophageal reflux disease) Surgical History Status post cholecystectomy History of laparoscopic cholecystectomy (04/21/23) Family History Paternal Grandmother Diabetes Father Diabetes Social History Household Members: Family Household Members Other:: Mother and Father. Housing: House Do you presently have visiting nurse or other home services: No Alcohol intake: never Patient Tobacco Use Status: Never used Tobacco e-Cigarette/Vaping Use: Never Used Second Hand Smoke Exposure: No service: No Current occupational status: employed Current occupation: [employer] Current occupational exposures/hazards: No Sexual orientation: Straight/Heterosexual Gender identity: Female Cognitive needs: No Hearing needs: No Vision needs: Yes Female Reproductive History Menstrual Age of Menarche: 8 Date of last menstrual period: 06/28/23 Review of Systems Const All systems reviewed & are unremarkable except as noted in HPI and below Endo Reports no additional complaints Physical Exam Const General: cooperative, healthy appearing and no acute distress Other: Declines a pelvic exam today for BV cultures Psych Appearance: well kempt Attitude: cooperative Thought process: Normal thought process present Results Reviewed Results Reviewed: [facility] [address] [place] [address] [place] [id number] Ultrasound Report Signed Patient: Kristina Sharif MR#: [id number] : 2000 Acct:[id number] Age/Sex: 22 / F ADM Date: 06/16/23 Loc: HO.[facility]GCX Attending Dr: Audrey Carson CNM Ordering Physician: Audrey Carson CNM Date of Service: 06/16/23 Procedure(s): US pelvic and transvaginal Accession Number(s): [id number] cc: Roderick Cantor-BC; Audrey Carson CNM~ EXAMINATION: US PELVIS CLINICAL INFORMATION: Follow-up left ovarian cyst. LMP 06/08/2023 COMPARISON: CT abdomen/pelvis 05/06/2023 TECHNIQUE: Ultrasound of the pelvis is performed using both transabdominal and transvaginal transducers along with Doppler. Transvaginal imaging is performed due to inadequate visualization transabdominally. FINDINGS: Uterus: The uterus is anteverted. The uterus measures 6.5 x 3.2 x 4.6 cm. Uterine echotexture is heterogeneous. The endometrial stripe measures 0.7 cm thickness. Adnexa: Both ovaries are visualized. There is no pelvic ascites or fluid collection. Right ovary measures 2.9 x 1.1 x 1.7 cm. Left ovary measures 3.8 x 2.4 x 2.5 cm. US/US pelvic and transvaginal IMPRESSION: Unremarkable pelvic ultrasound. Dictated By: Erasmo Paez MD Signed By: <Electronically signed by Erasmo Paez MD in OV> 06/19/231951 DD/ 1442 TD/TT: Steam Conditioner Filling: Assessment & Plan Assessment & Plan (1) Encounter to discuss test results: Code(s): Z71.2 - Person consulting for explanation of examination or test findings (2) Dysmenorrhea: Code(s): N94.6 - Dysmenorrhea, unspecified Plan Discussed: Ultrasound findings did not reveal a prior ovarian cyst. Unremarkable study. Self self-help measures for painful menses including a heating pad. Recommended to call the office if bleeding is less than 3 weeks apart, or if any heavy prolonged bleeding. Use condoms for STI and prevention. Return to the office for her next annual exam or p.r.n. as needed. All of her questions and concerns were addressed to the best of my ability and shared decision making. She is agreeable to the plan of care. Coding Level of Care Code Est Pt Level 3 (28404) Diagnoses Encounter to discuss test results Z71.2 Dysmenorrhea N94.6
== END 2023-06-30 08:45 | disposition home or self-care (01) ==
LOC: HO.HWS 07:32
PROVIDERS: PCP Nurse Practitioner Family; Visit Provider Advanced Practice Midwife
DX: Z71.2 Person consulting for explanation of examination or test findings (principal); N94.6 Dysmenorrhea, unspecified
CPT/HCPCS: 99213

== ENCOUNTER → 2023-06-30 07:32 | Outpatient (BNVA) | payer OTHER, SELFPAY | PROVIDERS: PCP Nurse Practitioner Family; Visit Provider Advanced Practice Midwife ==

== ENCOUNTER 2024-01-15 13:22 | Outpatient (AMB) | payer OTHER, SELFPAY ==
--- NOTE | 2024-01-15 13:25 | MHC.PC.OV ---
Vital Signs 01/15/24 13:27 Height 5 ft 1 in Weight 274 lb BMI 51.8 BP 116/80 Blood Pressure Location Rt brachial Position Sitting Pulse 99 Pulse Source Pulse Oximeter Pulse Oximetry (%) 98 Oxygen Delivery Method Room Air Intake Visit Reasons: HDF migraines Intake Note: pt is here for discharge followup for migraines. [facility]. Has paperwork Allergies No Known Allergies Allergy (Verified 01/15/24 13:47) Medication List - Last Reconciled 01/15/24 by SARAH Patel cholecalciferol (vitamin D3) 1,250 mcg PO QWEEK Tobacco use date assessed: 01/15/24 Dental Screening Dental Screen Date: 01/15/24 Did you have a dental visit in the last 12 months?: Yes Did you have a dental problem in the last 6 months where you did not have access to dental care?: No Was dental information given to patient?: Patient has dentist HPI HPI Comments History of Present Illness Details Patient is a 23-year-old female in today for hospital discharge follow-up. Patient presented to the [facility] emergency room x2 weeks prior for headache, blurry vision, vomiting. Patient had workup which included CT scan of head and neck, as well as MRI of the head which came back with no acute findings. Patient had blood draw which demonstrated leukocytosis and vitamin-D deficiency. Patient states that she has history of migraines, dating back for the past 6 years. Only recently has she started developed these with nausea/vomiting and visual disturbances. She manages these with cold compress, and quite isolation. Patient has utilize some ibuprofen in the past with [id number] affect. At the appointment today patient does not have any complaints. Not experiencing headache, no visual disturbances, no chest pain or shortness a breath. Patient has no nausea/vomiting/diarrhea. Spoke with patient about preventative and abortive therapies for migraine. She will be started on magnesium 400 mg p.o. daily as well as given naproxen 500 mg p.o. b.i.d. p.r.n.. Patient has been educated the side effects of these medications and how to take them properly. Patient will also get referral to Neurology. She has been educated on signs of worsening symptoms and when to report to the office or when to present to the ED patient states she understands Will obtain labs. [facility] Medical History Acute respiratory insufficiency Atelectasis, bilateral Morbid obesity with BMI of 40.0-44.9, adult GERD (gastroesophageal reflux disease) Surgical History Status post cholecystectomy History of laparoscopic cholecystectomy (04/21/23) Family History Paternal Grandmother Diabetes Father Diabetes Social History Household Members: Family Household Members Other:: Mother and Father. Housing: House Do you presently have visiting nurse or other home services: No Alcohol intake: never Patient Tobacco Use Status: Never used Tobacco e-Cigarette/Vaping Use: Never Used Second Hand Smoke Exposure: No service: No Current occupational status: employed Current occupation: [employer] Current occupational exposures/hazards: No Sexual orientation: Straight/Heterosexual Gender identity: Female Cognitive needs: No Hearing needs: No Vision needs: Yes Female Reproductive History Menstrual Age of Menarche: 8 Questionnaire PHQ-9 Over the last 2 weeks, how often have you been bothered by any of the following problems? 1. Little interest or pleasure in doing things: not at all 2. Feeling down, depressed, or hopeless: not at all 3. Trouble falling or staying asleep, or sleeping too much: not at all 4. Feeling tired or having little energy: not at all 5. Poor appetite or overeating: not at all 6. Feeling bad about yourself - or that you are a failure or have let yourself or your family down: not at all 7. Trouble concentrating on things, such as reading the newspaper or watching television: not at all 8. Moving or speaking so slowly that other people could have noticed. Or the opposite - being so fidgety or restless that you have been moving around a lot more than usual: not at all 9. Thoughts that you would be better off or of hurting yourself in some way: not at all Total score: 0 Depression Screening Interpretation: Negative Depression Screening Done: Yes 62411 - PHQ-9 Billing: Yes Source: Developed by Drs. Maynor L. Ellen Rosales Kurt Kroenke and colleagues, with an educational jin from [employer]. Thrive Questionnaire Date Thrive assessed: 01/15/24 I am a: Patient What is your living situation today?: I have a steady place to live Within the past 12 months, did the food you bought not last and you didn't have the money to get more?: Never true Within the past 12 months, did you worry whether your food would run out before you got money to buy more?: Never true Do you have trouble paying for medicines?: No Do you have trouble getting transportation to medical appointments?: No Do you have trouble paying your heating and electricity bill?: No Do you have trouble taking care of your child, family member or friend?: No Do you have trouble with day-to-day activities such as bathing, preparing meals, shopping, managing finances, etc.?: No Are you currently unemployed and looking for a job?: No Are you interested in more education?: No Please select the resources that you would like help with: None Currently or been in a relationship where the following occur: No concerns reported THRIVE Score: 0 AUDIT C Alcohol Use Questionnaire (AUDIT-C) 1. How often do you have a drink containing alcohol?: Never Total Score: 0 CHARI-7 AMB Questionnaire CHARI-7 Date CHARI - 7 assessed: 01/15/24 Feeling nervous, anxious, or on edge: 0 = Not at all Not being able to stop or control worryin = Not at all Worrying too much about different things: 0 = Not at all Trouble relaxin = Not at all Being so restless that it is hard to sit still: 0 = Not at all Becoming easily annoyed or irritable: 0 = Not at all Feeling afraid as if something awful might happen: 0 = Not at all Total CHARI-7 score (0-4 normal; 5-9 mild; 10-14 moderate; 15-21 severe): 0 Source: Developed by Drs. Maynor Rosales, Luiz Jeffers and colleagues, with an educational jin from [employer]. CHARI-7 Assessment Billing CHARI-7 Assessment Tool: CHARI-7 Assessment 84035 Review of Systems Const All systems reviewed & are unremarkable except as noted in HPI and below Denies chills, Denies fever(s) and Denies headache(s) Eyes Denies blurry vision and Denies diplopia ENT Denies vertigo, Denies dizziness and Denies headache(s) Card Denies chest pain and Denies dyspnea Resp Denies dyspnea GI Denies diarrhea, Denies nausea and Denies vomiting Neuro Denies vertigo, Denies dizziness and Denies headache(s) Physical exam (Primary Care) Vital Signs: Last Vital Signs Pulse 99 01/15/24 13:27 BP 116/80 01/15/24 13:27 Pulse Ox 98 01/15/24 13:27 Oxygen Delivery Method Room Air 01/15/24 13:27 BMI result Body Mass Index 51.8 Tobacco/Smoking Status: Tobacco use Status Tobacco use date assessed 01/15/24 01/15/24 13:34 Patient Tobacco Use Status Never used Tobacco 01/15/24 13:26 e-Cigarette/Vaping Use Never Used 01/15/24 13:26 PHQ-9: PHQ-9 Score PHQ-9: Total score 0 01/15/24 13:34 Depression Screening Interpretation: Negative Thrive Assessment: Date of Thrive Assessment Date Thrive assessed 01/15/24 01/15/24 13:34 Currently or been in a relationship where the following occur: No concerns reported Const Other: Appearance: Alert.? Oriented X3.? No acute distress.? Head: Normocephalic, atraumatic, no step-offs or deformities Eyes: Pupils equal, round and reactive to light.?EOMI. Neck: Normal inspection.? Neck supple.? CVS: Normal heart rate and rhythm.? Pulses normal.? Respiratory: No respiratory distress.? Breath sounds normal.? Neuro: Oriented X 3.? No motor deficit.? No sensory deficit. CN 2-12 intact Assessment and Plan Assessment & Plan (1) Migraines: Comment: Will order labs for patient to draw. Will also give patient 400 mg magnesium p.o. daily, and naproxen 500 mg p.o. b.i.d. p.r.n. for abortive therapy. Patient will get referral to Neurology. Patient has been educated on signs of worsening symptoms and when to report back to the office or when to present to the ED. Code(s): G43.909 - Migraine, unspecified, not intractable, without status migrainosus Qualifiers: Migraine type: unspecified Status migrainosus presence: without status migrainosus Intractability: not intractable Qualified Code(s): G43.909 - Migraine, unspecified, not intractable, without status migrainosus Plan: will follow up with labs. Orders: Referrals Neurology Referral G43.909 - Migraine, unspecified, not intractable, without status migrainosus Medications: New naproxen 500 mg PO BID PRN 30 tabs 0RF pain Coding Level of Care Code Est Pt Level 3 (58156) Diagnoses Migraine without status migrainosus, not intractable, unspecified migraine type G43.909 Migraine type: unspecified Status migrainosus presence: without status migrainosus Intractability: not intractable Additional Codes CHARI-7 Assessment Billing - CHARI-7 Assessment Tool: CHARI-7 Assessment 68266 ([id number]) Time Spent (min) 25
[2024-01-15 13:27] VITALS: BP 116/80; PULSE 99; O2SAT 98; BMI 51.8
== END 2024-01-15 14:05 | disposition home or self-care (01) ==
PROVIDERS: PCP Nurse Practitioner Family; Visit Provider Nurse Practitioner Primary Care
DX: G43.909 Migraine, unspecified, not intractable, without status migrainosus (principal)
CPT/HCPCS: 99213

== ENCOUNTER 2024-01-16 08:50 | Outpatient (REF) | payer OTHER, SELFPAY ==
[2024-01-16 11:04] LABS: MANUAL DIFF FLAG NO
[2024-01-16 11:16] LABS: Appearance Urine Clear; Basophils Absolute Auto 0.1 X10*3/uL (0.0-0.2); Basophils Percent Auto 0.5 % (0-2); Color Urine Yellow; Eosinophils Absolute Auto 0.2 X10*3/uL (0.0-0.4); Eosinophils Percent Auto 1.7 % (0-4); Glucose Urine UA Negative (Negative); Hematocrit 40.9 % (37.0-47.0); Hemoglobin 13.1 g/dl (12.0-16.0); Imm Gran Abs Auto 0.04 X10*3/uL (0.00-0.03); Imm Gran Pct Auto 0.4 % (0.0-0.4); Leukocyte Esterase Urine Negative (Negative); Lymphocytes Absolute Auto 2.5 X10*3/uL (1.2-4.9); Lymphocytes Percent Auto 23.2 % (20-40); Mean Corpuscular Hemoglobin 26.3 pg (27.0-33.0); Mean Platelet Volume 9.6 fL (9.4-12.3); Monocytes Absolute Auto 0.7 X10*3/uL (0.1-1.2); Neutrophils Absolute Auto 7.5 x10*3/uL (2.0-8.3); Neutrophils Percent Auto 68.2 % (45-73); Nitrite Urine Negative (Negative); PH 5.5 (5.0-9.0); Platelet Count 440 X10*3/uL (160-400); Red Blood Count 4.99 X10*6/uL (4.20-5.50); Red Cell Distribution Width 14.4 % (11.0-16.0); Specific Gravity - Urine 1.025 (1.005-1.025); Urine Blood Negative (Negative); Urine Ketones Negative (Negative); Urine Protein Negative (Neg-Trace); White Blood Count 10.9 X10*3/uL (4.8-10.8)
[2024-01-16 11:34] LABS: Alanine Aminotransferase 30 U/L (0-31); Albumin Level 4.1 g/dL (3.5-5.0); Alkaline Phosphatase 119 U/L (39-117); Anion Gap 12 (12-20); Aspartate Amino Transferase 20 U/L (5-31); Bilirubin Total 0.2 mg/dL (0.0-1.0); Blood Urea Nitrogen 14 mg/dL (9-16); Calcium 9.4 mg/dL (8.4-10.2); Carbon Dioxide 24 mmol/L (22-29); Chloride 106 mmol/L (96-108); Cholesterol 139 mg/dL (<200); Estimated Glomerular Filt Rate > 60; Glucose Random 101 mg/dL (60-115); HDL Cholesterol 51 mg/dL (>40); LDL Cholesterol Calculated 73 mg/dL (<100); Potassium 4.3 mmol/L (3.3-5.1); Sodium 138 mmol/L (135-145); Total Protein 7.4 g/dL (6.5-8.0); Triglycerides 79 mg/dL (<150)
[2024-01-16 11:59] LABS: Vitamin B12 602 pg/mL (200-900)
[2024-01-20 11:58] LABS: Vitamin D 25-OH, D2 16 ng/mL; Vitamin D 25-OH, D3 5 ng/mL; Vitamin D 25-OH, Total 21 ng/mL (30-100)
[2024-01-22 11:03] LABS: Vitamin B6 4.8 ng/mL (2.1-21.7)
== END 2024-01-16 08:51 | disposition home or self-care (01) ==
LOC: HO.HMGCLDS 08:50
PROVIDERS: PCP Nurse Practitioner Family; Visit Provider Nurse Practitioner Primary Care
DX: Z91.89 Other specified personal risk factors, not elsewhere classified (principal); Z13.0 Encounter for screening for diseases of the blood and blood-forming organs and certain disorders involving the immune mechanism; Z13.220 Encounter for screening for lipoid disorders; Z13.21 Encounter for screening for nutritional disorder; Z31.89 Encounter for other procreative management
CPT/HCPCS: 36415; 80053; 80061; 81003; 82306; 82607; 84207; 85025

== ENCOUNTER 2024-03-05 08:06 | Outpatient (AMB) | payer OTHER, SELFPAY ==
[2024-03-05 08:07] VITALS: BP 118/72; PULSE 85; O2SAT 98; BMI 51.6
--- NOTE | 2024-03-05 08:07 | A.OFFPC_ITS ---
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 [facility] Medical History Acute respiratory insufficiency Atelectasis, bilateral Morbid obesity with BMI of 40.0-44.9, adult GERD (gastroesophageal reflux disease) Surgical History Status post cholecystectomy History of laparoscopic cholecystectomy (04/21/23) Family History Paternal Grandmother Diabetes Father Diabetes Social History Household Members: Family Household Members Other:: Mother and Father. Housing: House Do you presently have visiting nurse or other home services: No Alcohol intake: never Patient Tobacco Use Status: Never used Tobacco e-Cigarette/Vaping Use: Never Used Second Hand Smoke Exposure: No service: No Current occupational status: employed Current occupation: [employer] Current occupational exposures/hazards: No Sexual orientation: Straight/Heterosexual Gender identity: Female Cognitive needs: No Hearing needs: No Vision needs: Yes Female Reproductive History Menstrual Age of Menarche: 8 Questionnaire PHQ-9 Over the last 2 weeks, how often have you been bothered by any of the following problems? 1. Little interest or pleasure in doing things: not at all 2. Feeling down, depressed, or hopeless: not at all 3. Trouble falling or staying asleep, or sleeping too much: not at all 4. Feeling tired or having little energy: not at all 5. Poor appetite or overeating: not at all 6. Feeling bad about yourself - or that you are a failure or have let yourself or your family down: not at all 7. Trouble concentrating on things, such as reading the newspaper or watching television: not at all 8. Moving or speaking so slowly that other people could have noticed. Or the opposite - being so fidgety or restless that you have been moving around a lot more than usual: not at all 9. Thoughts that you would be better off or of hurting yourself in some way: not at all Total score: 0 Depression Screening Interpretation: Negative Depression Screening Done: Yes 39696 - PHQ-9 Billing: Yes Source: Developed by Drs. Maynor Rosales, Ellen Freire, Luiz Francis and colleagues, with an educational jin from [employer]. Thrive Questionnaire Date Thrive assessed: 03/05/24 I am a: Patient What is your living situation today?: I have a steady place to live Within the past 12 months, did the food you bought not last and you didn't have the money to get more?: Never true Within the past 12 months, did you worry whether your food would run out before you got money to buy more?: Never true Do you have trouble paying for medicines?: No Do you have trouble getting transportation to medical appointments?: No Do you have trouble paying your heating and electricity bill?: No Do you have trouble taking care of your child, family member or friend?: No Do you have trouble with day-to-day activities such as bathing, preparing meals, shopping, managing finances, etc.?: No Are you currently unemployed and looking for a job?: No Are you interested in more education?: Yes Please select the resources that you would like help with: None Currently or been in a relationship where the following occur: No concerns reported THRIVE Score: 0 AUDIT C Alcohol Use Questionnaire (AUDIT-C) 1. How often do you have a drink containing alcohol?: Never 3. How often do you have six or more drinks on one occasion?: Never Total Score: 0 Score Reviewed/Action Taken: Yes CHARI-7 AMB Questionnaire CHARI-7 Date CHARI - 7 assessed: 03/05/24 Feeling nervous, anxious, or on edge: 0 = Not at all Not being able to stop or control worryin = Not at all Worrying too much about different things: 0 = Not at all Trouble relaxin = Not at all Being so restless that it is hard to sit still: 0 = Not at all Becoming easily annoyed or irritable: 0 = Not at all Feeling afraid as if something awful might happen: 0 = Not at all Total CHARI-7 score (0-4 normal; 5-9 mild; 10-14 moderate; 15-21 severe): 0 Source: Developed by Drs. Maynor Rosales, Ellen Freire, Luiz Francis and colleagues, with an educational jin from [employer]. CHARI-7 Assessment Billing CHARI-7 Assessment Tool: CHARI-7 Assessment 89320 Review of Systems Const Denies chills and Denies fever(s) Eyes Denies blurry vision ENT Denies vertigo, Denies dizziness and Denies sore throat Card Denies chest pain at rest, Denies chest pain with activity, Denies diaphoresis, Denies dyspnea and Denies dyspnea on exertion Resp Denies cough, Denies dyspnea, Denies dyspnea on exertion and Denies wheezing GI Denies abdominal pain, Denies melena, Denies hematochezia, Denies constipation, Denies diarrhea and Denies loose stools Denies hematuria Musc Denies numbness and Denies tingling Skin/Breast Denies lesions Neuro Denies vertigo, Denies dizziness, Denies numbness and Denies tingling Psych Denies anxiety, Denies depression, Denies homicidal ideation, Denies suicidal ideation and Denies other (substance abuse) Aller/Immun Denies wheezing Physical exam (Primary Care) Vital Signs: Last Vital Signs Pulse 85 03/05/24 08:07 BP 118/72 03/05/24 08:07 Pulse Ox 98 03/05/24 08:07 Oxygen Delivery Method Room Air 03/05/24 08:07 BMI result Body Mass Index 51.6 Tobacco/Smoking Status: Tobacco use Status Tobacco use date assessed 01/15/24 03/05/24 08:08 Patient Tobacco Use Status Never used Tobacco 03/05/24 08:08 e-Cigarette/Vaping Use Never Used 03/05/24 08:08 PHQ-9: PHQ-9 Score PHQ-9: Total score 0 03/05/24 08:08 Depression Screening Interpretation: Negative Thrive Assessment: Date of Thrive Assessment Date Thrive assessed 03/05/24 03/05/24 08:08 Currently or been in a relationship where the following occur: No concerns reported Const General: cooperative Nutritional Appearance: well nourished and obese Orientation/consciousness: patient oriented x3 HENMT Head: Yes normal to inspection, Yes normocephalic and Yes atraumatic Ears: TM normal on the right and TM normal on the left Eyes General: appearance normal, both eyes and all related structures Alignment and Position: alignment normal and position normal Neck Neck: Yes normal visual inspection and Yes no lymphadenopathy Resp Effort & Inspection: normal respiratory effort Auscultation: clear to auscultation bilaterally Cardio Rate: regular rate Rhythm: regular rhythm Heart sounds: S1 normal heart sound present, S2 normal heart sound present and no murmurs GI Palpation (GI): Soft to palpation and nontender Auscultation: normal bowel sounds Skin Rashes: no rashes Neuro General: patient oriented x3, moves all extremities, no focal motor deficits and deep tendon reflexes 2+ bilaterally Romberg Test: Negative Extrem Right lower extremity: no edema Left lower extremity: no edema Psych Affect: normal affect Attitude: cooperative Thought process: Normal thought process present Assessment and Plan Assessment & Plan (1) Physical exam: Code(s): Z00.00 - Encounter for general adult medical examination without abnormal findings Plan: labs ordered. (2) Vitamin D deficiency: Code(s): E55.9 - Vitamin D deficiency, unspecified Plan: checking levels Orders: Orders TSH reflex Free T4 Today Z00.00 - Encounter for general adult medical examination without abnormal findings Complete Blood Count Auto Diff Today Z00.00 - Encounter for general adult medical examination without abnormal findings Comprehensive [place]. Panel Fast Today Z00.00 - Encounter for general adult medical examination without abnormal findings UA CC w/rflx Micro + Cult Today Z00.00 - Encounter for general adult medical examination without abnormal findings Lipid Panel Today Z00.00 - Encounter for general adult medical examination without abnormal findings Vitamin D 25-OH Total Today E55.9 - Vitamin D deficiency, unspecified Coding Level of Care Code Est Pt Prev Care [id number]([id number]) Diagnoses Physical exam Z00.00 Vitamin D deficiency E55.9 Additional Codes CHARI-7 Assessment Billing - CHARI-7 Assessment Tool: CHARI-7 Assessment [id number] ([id number])
== END 2024-03-05 10:11 | disposition home or self-care (01) ==
PROVIDERS: PCP Nurse Practitioner Family; Visit Provider Nurse Practitioner Family
DX: Z00.00 Encounter for general adult medical examination without abnormal findings (principal); E55.9 Vitamin D deficiency, unspecified
CPT/HCPCS: 99395

== ENCOUNTER 2024-03-08 08:43 | Outpatient (REF) | payer OTHER, SELFPAY ==
[2024-03-08 10:00] LABS: Appearance Urine Cloudy; Color Urine Yellow; Glucose Urine UA Negative (Negative); Leukocyte Esterase Urine Negative (Negative); Nitrite Urine Negative (Negative); Specific Gravity - Urine 1.025 (1.005-1.025); Urine Blood Negative (Negative); Urine Ketones Trace mg/dL (Negative); Urine Protein Negative (Neg-Trace)
[2024-03-08 10:05] LABS: MANUAL DIFF FLAG NO
[2024-03-08 10:18] LABS: Basophils Percent Auto 0.4 % (0-2); Eosinophils Absolute Auto 0.1 X10*3/uL (0.0-0.4); Eosinophils Percent Auto 1.3 % (0-4); Hematocrit 40.5 % (37.0-47.0); Hemoglobin 12.9 g/dl (12.0-16.0); Imm Gran Abs Auto 0.03 X10*3/uL (0.00-0.03); Imm Gran Pct Auto 0.3 % (0.0-0.4); Lymphocytes Absolute Auto 2.6 X10*3/uL (1.2-4.9); Lymphocytes Percent Auto 25.3 % (20-40); Mean Corpuscular HGB Conc 31.9 g/dl (31.0-35.0); Mean Corpuscular Hemoglobin 26.3 pg (27.0-33.0); Mean Corpuscular Volume 82.5 fL (80.0-98.0); Mean Platelet Volume 9.7 fL (9.4-12.3); Monocytes Absolute Auto 0.6 X10*3/uL (0.1-1.2); Monocytes Percent Auto 5.5 % (2-11); Neutrophils Absolute Auto 6.8 x10*3/uL (2.0-8.3); Neutrophils Percent Auto 67.2 % (45-73); Platelet Count 479 X10*3/uL (160-400); Red Blood Count 4.91 X10*6/uL (4.20-5.50); Red Cell Distribution Width 13.9 % (11.0-16.0); White Blood Count 10.1 X10*3/uL (4.8-10.8)
[2024-03-08 10:47] LABS: Alanine Aminotransferase 20 U/L (0-31); Alkaline Phosphatase 120 U/L (39-117); Anion Gap 13 (12-20); Aspartate Amino Transferase 16 U/L (5-31); Bilirubin Total 0.3 mg/dL (0.0-1.0); Blood Urea Nitrogen 11 mg/dL (9-16); Calcium 9.4 mg/dL (8.4-10.2); Carbon Dioxide 26 mmol/L (22-29); Chloride 105 mmol/L (96-108); Cholesterol 132 mg/dL (<200); Estimated Glomerular Filt Rate > 60; Glucose Fasting 101 mg/dL (60-99); HDL Cholesterol 41 mg/dL (>40); LDL Cholesterol Calculated 72 mg/dL (<100); Potassium 3.8 mmol/L (3.3-5.1); Sodium 140 mmol/L (135-145); Total Protein 7.2 g/dL (6.5-8.0); Triglycerides 99 mg/dL (<150)
[2024-03-08 11:06] LABS: TSH reflex Free T4 1.17 uIU/mL (0.32-4.0); Vitamin D 25-OH Total 24.4 ng/mL (>30)
== END 2024-03-08 08:44 | disposition home or self-care (01) ==
LOC: HO.HMGCLDS 08:43
PROVIDERS: PCP Nurse Practitioner Family; Visit Provider Nurse Practitioner Family
DX: Z00.00 Encounter for general adult medical examination without abnormal findings (principal); E55.9 Vitamin D deficiency, unspecified
CPT/HCPCS: 36415; 80053; 80061; 81003; 82306; 84443; 85025

== ENCOUNTER 2024-08-12 12:49 | Outpatient (AMB) | payer OTHER, SELFPAY ==
[2024-08-12 13:03] VITALS: BP 110/76; PULSE 105; O2SAT 97; BMI 51.1
--- NOTE | 2024-08-12 13:03 | MHC.OFFVIS ---
Vital Signs 08/12/24 13:03 Height 5 ft 1 in Weight 270 lb 4 oz BMI 51.1 BP 110/76 Blood Pressure Location Rt brachial Position Sitting Pulse 105 H Pulse Source Pulse Oximeter Pulse Oximetry (%) 97 Oxygen Delivery Method Room Air Intake Visit Reasons: INP: Migraine Intake Note: patient here for migraines Allergies No Known Allergies Allergy (Verified 08/12/24 13:06) HPI Comments Details: Right-handed 23-yr-old female presents for new pt evaluation of headache disorder. Pt reports she started having migraine headache at age 17, when she started on OCP control. She was tried on several different OCPs, however they all seem to cause migraine. She stopped all OCPs a couple of years ago, however the headaches have persisted. She feels her migraine has worsened some, as last summer she had a severe prolonged migraine a/w N/V- though she does not usually have vomiting with her migraine attacks. She was admitted to [facility] for 3-4 days, and initially tx'd w/ IV ABT for suspected meningitis which were d/c'd when work-up was negative for s/s infection. Patient was discharged with a diagnosis of migraine. Review of 01/04/2024 [facility] admission records: Brain MRI w/wo- unremarkable Head/neck CTA- unremarkable MRI C-spine= normal cervical spine though did show Nonspecific enlarged upper cervical lymph nodes, probably reactive. [facility] spine imaging showed disc bulge at T12-L1 with possible indentation on the spinal cord at this level. ESR 65 and CRP for elevated. LP opening pressure 23 cm [id number] elevated. 12/18/2023, CSF studies- consistent with possible traumatic tap. Color- colorless CSF Cell Count Appearance CLEAR CSF Cell Count WBC 8 per Cubic Millimeter (High)? CSF Cell Count RBC 34542 per Cubic Millimeter (High)? CSF Cells, Seg 91 % (High)? CSF Cells, Lymph 9 % (Low)? Total Protein, CSF 40 mg/dL Glucose, CSF 98 mg/dL (High)? CSF meningitis and virus panel- negative PMH and ROS are notable for:? General: weight gain when she started on OCP, but has never been able to lose that weight. denies dizziness. Vision: denies vision changes. last eye exam last - WNL. Musculoskeletal disorders or injury: denies History of concussion/head injury: denies Mood d/o: denies Respiratory d/o: denies CV disease: denies Clotting or hematology d/o: denies Endocrine or metabolic d/o: denies History of seizure: denies History of syncope: denies : denies GI d/o: h/o GERD, s/p lap-choley in Apr 2023 w/ post-sx pancreatitis d/t residual cholecystitis- states LFTs/renal studies have normalized. 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 Family planning: none, uses ovulation tracker. Family history of migraine or other headache disorder: grandmother, paternal aunt- anuerysm. Lifestyle considerations: Sleep routine: Usual bedtime: 12am and wake-up time: 1pm. Sleep difficulties: Endorses: Uses music to relax at sleep onset to prevent ruminating thoughts, Snoring, Excessive daytime sleepiness, Restless legs at times, Bruxism- does not wear her mouth guard (made by her dentist)- wakes up having removed it. 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 Headache questionnaire:? Typical headache characteristics: Prodrome symptoms: Sometimes nausea or eye lid twitching or sinus pressure Aura: sees yellow dots or lines during a severe attack Pain intensity: moderate-severe Location, quality, characteristics: varies- pressure/throbbing retro-oribtal, side of head, back of head, or holocranial. Associated symptoms: blurry vision, photophobia, phonophobia, osmophobia, ponytail allodynia, nausea, rare vomiting fatigue, cognitively slower, activity intolerance, nasal congestion. Postdrome: drained feeling Triggers: smells, menstrual cycle, sometimes breifly standing up quickly will cause a headache which subsides if she sits back down and gets up again. Time of day: No specific time of day Duration and Frequency: 11 days a month, last at least 4 hrs, but can last a few days How does headache impact your life? Has had to miss work. Current acute medication use/interventions: Naproxen 500mg bid prn- not always effective. Excedrin- lost effectiveness. Current preventative medication use: Magnesium 1 tab (? dose). Non-pharmacological interventions: ice cap, rest, hot shower. [facility] Medical History Acute respiratory insufficiency Atelectasis, bilateral Morbid obesity with BMI of 40.0-44.9, adult GERD (gastroesophageal reflux disease) Surgical History Status post cholecystectomy History of laparoscopic cholecystectomy (04/21/23) Family History Paternal Grandmother Diabetes Father Diabetes Social History Household Members: Family Household Members Other:: Mother and Father. Housing: House Do you presently have visiting nurse or other home services: No Alcohol intake: never Patient Tobacco Use Status: Never used Tobacco e-Cigarette/Vaping Use: Never Used Second Hand Smoke Exposure: No service: No Current occupational status: employed Current occupation: [employer] Current occupational exposures/hazards: No Sexual orientation: Straight/Heterosexual Gender identity: Female Cognitive needs: No Hearing needs: No Vision needs: Yes Female Reproductive History Menstrual Age of Menarche: 8 Physical Exam Vital Signs: Last Vital Signs Pulse 105 H 08/12/24 13:03 BP 110/76 08/12/24 13:03 Pulse Ox 97 08/12/24 13:03 Oxygen Delivery Method Room Air 08/12/24 13:03 BMI result Body Mass Index 51.1 Const Orientation/consciousness: patient oriented x3 HEENT Other: Mallampati stage III Resp Effort & Inspection: normal respiratory effort and able to speak in complete sentences Neuro Other: No palpable scalp tenderness. Mild photophobia Bilateral mild posterior cervical tightness. Cervical ROM: full Left Spurling: normal Right Spurling: normal. General: patient oriented x3 Cranial nerves: Yes CN's II-XII intact bilaterally Cognition (Neuro): normal cognition Gait exam (Neuro): Normal gait present Motor exam (neuro): 5/5 motor strength present throughout Deep tendon reflexes (DTR's): Right triceps reflex intensity grade: 2+, Left triceps reflex intensity grade: 2+, Rt Biceps (C5, C6): 2+, Left biceps reflex intensity grade: 2+, Right brachioradialis reflex intensity grade: 2+, Left brachioradialis reflex intensity grade: 2+, Right patellar reflex intensity grade: 2+ and Left patellar reflex intensity grade: 2+ Coordination: [id number] test normal, tandem gait normal and Romberg test negative Pupils: Normal pupillary reactivity/response: bilateral Psych Appearance: grossly normal Mental Status: mental status grossly normal Speech and movement: Normal speech and movement present Affect: normal affect Attitude: cooperative Thought process: Normal thought process present Assessment & Plan Assessment & Plan (1) Migraine with aura: Code(s): G43.109 - Migraine with aura, not intractable, without status migrainosus Category: Medical (2) Obesity, morbid, BMI 50 or higher: Code(s): E66.01 - Morbid (severe) obesity due to excess calories Category: Medical (3) Snoring: Code(s): R06.83 - Snoring Category: Medical (4) Excessive daytime sleepiness: Code(s): G47.19 - Other hypersomnia Category: Medical (5) Elevated erythrocyte sedimentation rate: Code(s): R70.0 - Elevated erythrocyte sedimentation rate Category: Medical (6) Elevated C-reactive protein (CRP): Code(s): R79.82 - Elevated C-reactive protein (CRP) Category: Medical (7) Elevated cerebrospinal fluid pressure: Comment: 01/03/2023, at [facility] showed opening pressure 23 cm H2O. Brain MRI w/wo- without findings suggestive of IIH. No current vision loss symptoms. Patient is followed by [facility]. Code(s): G96.89 - Other specified disorders of central nervous system Category: Medical Plan Pt advised to undergo: Eye exam in August as scheduled Labs for common etiologies worsening headaches, restless leg symptoms, fatigue. In-lab PSG to assess for sleep apnea and PLMS. We will refer patient for medical weight management consult- to support patient's current efforts to lose weight. For overall headache management: Optimize good self-care, including but not limited to maintaining a healthy diet, adequate fluid intake, adequate sleep, and engaging in regular physical activity. Track headaches, especially after any treatment regimen changes. Migraine [employer] is one of many headache tracking apps. Information shared on non-pharmacological interventions which may help to alleviate headache attack burden. For light sensitivity: Patient may benefit from trying blue light filtering glasses, green glasses, green light therapy. For sound sensitivity: Patent may benefit from trying noise cancellation ear plugs. Neuromodulation devices, which can be used alone or with pharmacological treatment. For acute headache treatment: Discussed importance of taking acute medications at the first sign of headache, however stressed importance of avoiding acute medication overuse (especially with combined headache medications). Trial Sumatriptan 100mg tab, 1/2 - 1 tab (50-100mg) at onset of headache, may repeat in 2 hours. Max of 2 tabs (200mg) per 24 hours. May take sumatriptan with OTC Tylenol 650-1,000mg every 4-6 hours, Ibuprofen (liquid gels) 600mg every 6 hours, or Naproxen (liquid gels) 440-500mg q 12 hrs prn. Potential adverse effects of triptans, include but are not limited to nausea, fatigue, chest tightness/tingling (usually passes within a few minutes), medication overuse headaches. Previous acute migraine medication trials: Naproxen 500 mg- not effective. Excedrin lost effectiveness Acute migraine medication contraindications: None at this time For headache prevention medication: Preventative medications should be taken routinely as prescribed for best effect, it may take several weeks for full effect to take effect. Start Riboflavin 400mg daily in the morning Continue Magnesium 400mg daily at bedtime Trial Topiramate 25-50mg daily at bedtime. Potential adverse effects of Topiramate, include but are not limited to fatigue, cognitive changes, paresthesias (tingling), vision changes, kidney stones, teratogenic (because malformation). Patient advised to discuss with her MECHANICAL MANAGER- trying non estrogen based control measure. Previous migraine prevention medication trials: Migraine prevention medication contraindications: Depakote-woman of childbearing age. CGRP MaB- patient is not currently on control, and this has a long duration of action. Pt seen in collaboration w/ Dr Judy Castaneda. Will follow-up upon review of above and patient to follow-up in clinic in 3-4 months or sooner prn. Orders: Orders GAIL Reflex Titer and Pattern Today E55.9 - Vitamin D deficiency, unspecified, E66.01 - Morbid (severe) obesity due to excess calories, R70.0 - Elevated erythrocyte sedimentation rate, R79.82 - Elevated C-reactive protein (CRP) TSH reflex Free T4 Today E55.9 - Vitamin D deficiency, unspecified, E66.01 - Morbid (severe) obesity due to excess calories, R70.0 - Elevated erythrocyte sedimentation rate, R79.82 - Elevated C-reactive protein (CRP) Vitamin B12 and Folate Today E55.9 - Vitamin D deficiency, unspecified, E66.01 - Morbid (severe) obesity due to excess calories, R70.0 - Elevated erythrocyte sedimentation rate, R79.82 - Elevated C-reactive protein (CRP) Hemoglobin A1c Today E55.9 - Vitamin D deficiency, unspecified, E66.01 - Morbid (severe) obesity due to excess calories, R70.0 - Elevated erythrocyte sedimentation rate, R79.82 - Elevated C-reactive protein (CRP) IRON PROFILE Today E55.9 - Vitamin D deficiency, unspecified, E66.01 - Morbid (severe) obesity due to excess calories, R70.0 - Elevated erythrocyte sedimentation rate, R79.82 - Elevated C-reactive protein (CRP) RT PSG in-lab sleep study 08/12/24 E66.01 - Morbid (severe) obesity due to excess calories, G47.19 - Other hypersomnia, R06.83 - Snoring Rheumatoid Factor Today E55.9 - Vitamin D deficiency, unspecified, E66.01 - Morbid (severe) obesity due to excess calories, R70.0 - Elevated erythrocyte sedimentation rate, R79.82 - Elevated C-reactive protein (CRP) Vitamin D 25-OH (D2 and D3) Today E55.9 - Vitamin D deficiency, unspecified, E66.01 - Morbid (severe) obesity due to excess calories, R70.0 - Elevated erythrocyte sedimentation rate, R79.82 - Elevated C-reactive protein (CRP) Comprehensive Met. Panel Today E55.9 - Vitamin D deficiency, unspecified, E66.01 - Morbid (severe) obesity due to excess calories, R70.0 - Elevated erythrocyte sedimentation rate, R79.82 - Elevated C-reactive protein (CRP) Complete Blood Count Auto Diff Today E55.9 - Vitamin D deficiency, unspecified, E66.01 - Morbid (severe) obesity due to excess calories, R70.0 - Elevated erythrocyte sedimentation rate, R79.82 - Elevated C-reactive protein (CRP) Erythrocyte Sedimentation Rate Today E55.9 - Vitamin D deficiency, unspecified, E66.01 - Morbid (severe) obesity due to excess calories, R70.0 - Elevated erythrocyte sedimentation rate, R79.82 - Elevated C-reactive protein (CRP) CRP High Sensitivity Today E55.9 - Vitamin D deficiency, unspecified, E66.01 - Morbid (severe) obesity due to excess calories, R70.0 - Elevated erythrocyte sedimentation rate, R79.82 - Elevated C-reactive protein (CRP) Ferritin Today E55.9 - Vitamin D deficiency, unspecified, E66.01 - Morbid (severe) obesity due to excess calories, R70.0 - Elevated erythrocyte sedimentation rate, R79.82 - Elevated C-reactive protein (CRP) Referrals Medical Weight Management Referral E66.01 - Morbid (severe) obesity due to excess calories, G43.909 - Migraine, unspecified, not intractable, without status migrainosus, G96.89 - Other specified disorders of central nervous system Medications: New riboflavin (vitamin B2) 400 mg PO DAILY 30 days 30 tabs 6RF sumatriptan succinate (0.5 - 1 x 100 mg) 50 - 100 mg orally at onset of headache, may repeat in 2 hrs PRN; max 2 tabs per day or 4 tabs/week (may take with Ibuprofen) 30 days 12 tabs 6RF migraine headache topiramate 25 - 50 mg (1 - 2 x 25 mg) PO BEDTIME 30 days 60 tabs 3RF magnesium oxide may hold for loose stools 400 mg PO BEDTIME 30 days 30 tabs 6RF Coding Level of Care Code New Pt Level 4 (47108) Diagnoses Migraine with aura G43.109 Obesity, morbid, BMI 50 or higher E66.01 Snoring R06.83 Excessive daytime sleepiness G47.19 Elevated erythrocyte sedimentation rate R70.0 Elevated C-reactive protein (CRP) R79.82 Elevated cerebrospinal fluid pressure G96.89 [place] Sleepiness Scale Questions Sitting and reading: moderate chance of dozing Watching TV: moderate chance of dozing Sitting inactive in a theater, movie etc.: moderate chance of dozing As a passenger in a car for an hour without break: moderate chance of dozing Lying down in the afternoon when circumstances permit: moderate chance of dozing Sitting and talking to someone: would never doze Sitting quietly after lunch without alcohol: moderate chance of dozing In a car, while stopped for a few minutes in the traffic: would never doze ESS < 10: normal, ESS > 12: pathologic: 12
--- OUTSIDE RECORDS SUMMARY | 2024-08-12 17:30 | XMS_ITS | Data Portability ---
Author Organization [facility], [address] Address [address] [place] [address] Assessment No assessment recorded. Plan of Treatment Reminders Order Date Submit Date Provider Last Modified By Organization Details Last Modified Time Details Appointments None recorded. Lab None recorded. Referral None recorded. Procedures None recorded. Surgeries None recorded. Imaging None recorded. Medication Orders naproxen 500 mg tablet 2022 023 [id number], [address], [place], [phone], 3 09:07:19 methocarbam ol 750 mg tablet 2022 023 [facility]29603, [address], [place], [phone], 3 09:07:18 Patient TargetsNo targets recorded. Patient Instructions Encounter Date Encounter Id Patient Instructions Last Modified By Organization Details Last Modified Time 03/01/2023 [id number] back strain: car e instructions [email or web address] Not available 03/01/2023 09:07:18 Reason for Referral None Reported. Problems No Known Problems Medical Equipment None Reported. Allergies No known drug allergies Medications Name Sig Start Date Stop Date Status Note LastModified by Organization Details LastModified Time Prescriptio n - Renewal active Not Available Not Available Not Available pantoprazol e 20 mg tablet,michael yed release TAKE 1 TABLET BY MOUTH DAILY active Not Available Not Available No t Available methocarbam ol 750 mg tablet TAKE 1 TABLET BY MOUTH THREE TIMES DAILY NEEDED active Not Available Not Available No t Available ondansetron 4 mg disintegrat ing tablet DISSOLVE 1 TABLET ON THE TONGUE EVERY 8 HOURS NEEDED FOR NAUSEA OR VOMITING 03/01 completed Not Available Not Available Not Available naproxen 500 mg tablet TAKE 1 TABLET BY MOUTH TWICE DAILY NEEDED active Not Available Not Available No t Available amoxicillin 875 mg-potassiu m clavulanate 125 mg tablet TAKE 1 TABLET BY MOUTH TWICE DAILY WITH FOOD FOR 10 DAYS 03/01 completed Not Available Not Available Not Available Vienva 0.1 mg-20 mcg tablet TAKE 1 TABLET EVERY DAY BY MOUTH 03/01 completed Not Available Not Available Not Available Vitals Date Recorded Body height Provider Name an d Address Organization Details Last Updated DateTime 03/01/2023 157.48 cm Verna Umana PA - [facility] 03/01/2023 08:46:36 Date Recorded Body mass index (BMI) Body weight Provider Name and Address Organization Details Last Updated DateTime 03/01/2023 45.7 kg/m2 579769.09 g Verna Umana PA - [facility] 03/01/2023 08:46:40 Date Recorded Body temperature Provider Name a nd Address Organization Details Last Updated DateTime 03/01/2023 97.9 [degF] Verna Umana PA - [facility] 03/01/2023 08:47:47 Date Recorded Respiratory rate Provider Name a nd Address Organization Details Last Updated DateTime 03/01/2023 18 /min Verna Umana PA - [facility] 03/01/2023 08:47:49 Date Recorded Oxygen saturation Oxygen saturation in Arterial blood by Pulse oximetry Provider Name and Address Organization Details Last Updated DateTime 03/01/2023 98 % 98 % Verna Umana PA - [facility] 03/01/2023 08:48:14 Date Recorded Heart rate Provider Name an d Address Organization Details Last Updated DateTime 03/01/2023 91 /min Verna Umana PA - [facility] 03/01/2023 08:48:19 Date Recorded Pain severity - 0-10 verbal numeric rating [Score] - Reported Provider Name and Address Organization Details Last Updated DateTime 03/01/2023 6 Verna Umana PA - [facility] 03/01/2023 08:48:21 Date Recorded Systolic blood pressure Diastolic blood pressure Provider Name and Address Organization Details Last Updated DateTime 03/01/2023 106 mm[Hg] 66 mm[Hg] Verna Umana PA - [facility] 03/01/2023 08:48:11 Social History Question Answer Notes LastModified by Organizat ion Details LastModified Time Tobacco Smoking Status Never Smoker Verna aceves, PA - [facility] 03/01/2023 08:49:30 What Is Your Level Of Alcohol Consumption? None Information not available 03/01/2023 Do You Use Any Illicit Or Recreational Drugs? No Information not available 03/01/2023 Do You Or Have You Ever Used Any Other Forms Of Tobacco Or Nicotine? No Information not available 03/01/2023 Sex: Unknown Functional Status None recorded. Mental Status None recorded. Family History Relationship Description Onset Age of this Age Resolved Age Notes LastModified by Organization Details LastModified Time Father No current problems or disability Not available 03/01 08:49:21 Mother No current problems or disability Not available 03/01 08:49:21 Medical History No medical history recorded. Gynecological History Statement/Question Response Date of LMP 02/10/2023 Is there any chance of ? Yes LMP Definite Obstetrics History GPAL:G 0 P 0 0 0 0 Immunizations Vaccine Type Date Status Note Provider Nam e and Address Organization Details Recorded Time COVID-19, mRNA, LNP-S, PF, 30 mcg/0.3 mL dose 07/27/2021 completed Verna aceves, PA - [facility] 03/01/2023 08:48:28 COVID-19, mRNA, LNP-S, PF, 30 mcg/0.3 mL dose 12/07/2020 completed Verna aceves, PA - [facility] 03/01/2023 08:48:28 COVID-19, mRNA, LNP-S, PF, 30 mcg/0.3 mL dose 12/28/2020 completed Verna aceves, PA - [facility] 03/01/2023 08:48:28 Past Encounters Encounter ID Performer Location Encounter Start Date Encounter Closed Date Diagnosis/Indication Diagnosis SNOMED-CT Code Diagnosis ICD10 Code Diagnosis Note [id number] [address] [facility] [address] [place] [address] 01/31/2018 08:19:37 01/31/2018 08:50:40 [id number] [facility] [place], [place] [address] 08/19/2018 17:04:58 08/19/2018 19:35:16 [id number] [address] [facility] [place] [address] 07/16/2017 19:32:08 07/16/2017 19:59:06 [id number] [address] [facility] [place] [address] 03/27/2022 11:23:31 03/27/2022 11:47:24 [id number] Jojo Rubin MD [address] [facility] [place], [place] [address] 03/01/2023 08:04:04 03/01/2023 09:07:54 Lumbar sprain 200970198 S33.5XXA +muscle spasmMay apply heat 20 minutes on and 20 minutes off several times a day. Do not apply to direct skin. Tylenol prn for pain. Do not exceed maximum dosage. Monitor changes in symptoms such as numbness, tingling or weakness in legs, changes in bowel or bladder habits or worsening back pain. Go directly the ER if any worsening symptoms develop in the next 24-48 hours. Consider Physical Therapy if not resolving in the next 1-2 weeks. Health Concerns Section Related Observation LastModified by Organization Detai ls LastModified Time None Recorded Concern Status LastModified by Organization Details LastModified Time None Recorded Advance Directives Directive None Recorded Payers Encounter Date Sequence Insurance Name Policy Number Policy Rouse Covered Member ID Rouse Member ID Guarantor Name 07/16/2017 1 [facility] [id number] 1 Kristina Christopher Eaton [id number] Kristina Christopher Eaton 01/31/2018 1 [facility] [id number] Kristina Christopher Eaton [id number] Kristina Christopher Eaton 03/27/2022 1 [facility] [id number] 1 Kristina Christopher Eaton [id number] Kristina Christopher Eaton 03/01/2023 1 [facility] [id number] 1 Kristina Sharif [id number] Kristina Sharif Notes Date Note Type Note Provider Name and Address Organization Details Recorded Time 03/01/2023 text/html Back Pain/Injury UCReported bypatient.Locatio n:lower back; pain is not radiating Quality:dull;musc le spasms Duration:days Aggravating Factors:bending/s quatting;bending over/standing up Pt c/o lower back pain after sleeping in a particular position 3 days prior.Denies numbness, dysuria or loss of bowel function. No recent injury. Jojo Rubin MD [address] [place], [address], PA - [facility] 03/01/2023 09:13:04 OBGyn Episode No OBEpisode recorded.
== END 2024-08-12 14:30 | disposition home or self-care (01) ==
PROVIDERS: PCP Nurse Practitioner Family; Visit Provider Nurse Practitioner Family
DX: G43.109 Migraine with aura, not intractable, without status migrainosus (principal); E66.01 Morbid (severe) obesity due to excess calories; R06.83 Snoring; G47.19 Other hypersomnia; R70.0 Elevated erythrocyte sedimentation rate; R79.82 Elevated C-reactive protein (CRP); G96.89 Other specified disorders of central nervous system
CPT/HCPCS: 99204

== ENCOUNTER → 2024-08-12 12:49 | Outpatient (BNVA) | payer OTHER, SELFPAY | PROVIDERS: PCP Nurse Practitioner Family; Visit Provider Nurse Practitioner Family ==

== ENCOUNTER → 2024-08-19 08:26 | Outpatient (BNVA) | payer OTHER, SELFPAY | PROVIDERS: PCP Nurse Practitioner Family; Visit Provider Physician Assistant Surgical ==

== ENCOUNTER 2024-11-12 07:36 | Outpatient (AMB) | payer OTHER, SELFPAY ==
--- NOTE | 2024-11-12 07:38 | MHC.OFFVIS ---
Vital Signs 11/12/24 07:42 Height 5 ft 1 in Weight 266 lb BMI 50.3 BP 118/78 Blood Pressure Location Rt brachial Position Sitting Intake Visit Reasons: Follow Up 3mo Intake Note: Patient presents for follow up 3 months patient forgpt about doing her labs as ordered by provider. Allergies No Known Allergies Allergy (Verified 11/12/24 07:44) Medication List - Last Reconciled 11/12/24 by SARAH Han ergocalciferol (vitamin D2) (Vitamin D2) PO magnesium 250 mg PO DAILY naproxen 500 mg PO BID PRN 90 days ondansetron HCl 4 - 8 mg (1 - 2 x 4 mg) PO Q4-6H PRN 30 days MDD 4 tabs riboflavin (vitamin B2) 400 mg PO DAILY sumatriptan succinate 100 mg PO Q2-4H PRN HPI Comments Details: Right-handed 23-yr-old female presents for follow-up of migraine and sleep difficulties. She did have an ER eval a couple of weeks ago for dizziness even when laying still. Dx was dehydration, was tx'd with IVF. Pt reports it took a couple of days after receiving the IV fluids to feel better. She notes that prior to the onset of the dizziness, her an aura ring alerted her that her biometrics were off, and she noticed that her heart rate even her nocturnal heart rate was more elevated than usual. She tries to drink plenty of fluids, but notes that the few days prior to this she had not been drinking fluids is regularly. She can occasionally have orthostatic light headedness. She does not with holds hold intake. She has not had in-lab sleep study yet, states she has just been busy. She had initial weight loss clinic appointment, states she needs to schedule the follow-up appointment. Pt reports her migraine is significantly since starting riboflavin and magnesium. Does mentioned that when she does have a migraine, it is often associated with significant nausea, and that is often what prevents her from participating in her daily activities. She did not start topiramate, as the vitamins were working so well. She has not needed to try Sumatriptan. Using Naproxen occasionally with good effect. She also started using a warming eye massage, which is very helpful. 08/12/2024, Initial HPI: Pt reports she started having migraine headache at age 17, when she started on OCP control. She was tried on several different OCPs, however they all seem to cause migraine. She stopped all OCPs a couple of years ago, however the headaches have persisted. She feels her migraine has worsened some, as last summer she had a severe prolonged migraine a/w N/V- though she does not usually have vomiting with her migraine attacks. She was admitted to [facility] for 3-4 days, and initially tx'd w/ IV ABT for suspected meningitis which were d/c'd when work-up was negative for s/s infection. Patient was discharged with a diagnosis of migraine. Review of 01/04/2024 [facility] admission records: Brain MRI w/wo- unremarkable Head/neck CTA- unremarkable MRI C-spine= normal cervical spine though did show Nonspecific enlarged upper cervical lymph nodes, probably reactive. [facility] imaging showed disc bulge at T12-L1 with possible indentation on the spinal cord at this level. ESR 65 and CRP for elevated. LP opening pressure 23 cm [id number] elevated. 12/18/2023, CSF studies- consistent with possible traumatic tap. Color- colorless CSF Cell Count Appearance CLEAR CSF Cell Count WBC 8 per Cubic Millimeter (High)? CSF Cell Count RBC 99805 per Cubic Millimeter (High)? CSF Cells, Seg 91 % (High)? CSF Cells, Lymph 9 % (Low)? Total Protein, CSF 40 mg/dL Glucose, CSF 98 mg/dL (High)? CSF meningitis and virus panel- negative PMH and ROS are notable for:? General: weight gain when she started on OCP, but has never been able to lose that weight. denies dizziness. Vision: denies vision changes. last eye exam last - WNL. Musculoskeletal disorders or injury: denies History of concussion/head injury: denies Mood d/o: denies Respiratory d/o: denies CV disease: denies Clotting or hematology d/o: denies Endocrine or metabolic d/o: denies History of seizure: denies History of syncope: denies : denies GI d/o: h/o GERD, s/p lap-choley in Apr 2023 w/ post-sx pancreatitis d/t residual cholecystitis- states LFTs/renal studies have normalized. 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 Family planning: none, uses ovulation tracker. Family history of migraine or other headache disorder: grandmother, paternal aunt- con. Lifestyle considerations: Sleep routine: Usual bedtime: 12am and wake-up time: 1pm. Sleep difficulties: Endorses: Uses music to relax at sleep onset to prevent ruminating thoughts, Snoring, Excessive daytime sleepiness, Restless legs at times, Bruxism- does not wear her mouth guard (made by her dentist)- wakes up having removed it. 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 Headache questionnaire:? Typical headache characteristics: Prodrome symptoms: Sometimes nausea or eye lid twitching or sinus pressure Aura: sees yellow dots or lines during a severe attack Pain intensity: moderate-severe Location, quality, characteristics: varies- pressure/throbbing retro-oribtal, side of head, back of head, or holocranial. Associated symptoms: blurry vision, photophobia, phonophobia, osmophobia, ponytail allodynia, nausea, rare vomiting fatigue, cognitively slower, activity intolerance, nasal congestion. Postdrome: drained feeling Triggers: smells, menstrual cycle, sometimes breifly standing up quickly will cause a headache which subsides if she sits back down and gets up again. Time of day: No specific time of day Duration and Frequency: 11 days a month, last at least 4 hrs, but can last a few days How does headache impact your life? Has had to miss work. Current acute medication use/interventions: Naproxen 500mg bid prn- not always effective. Excedrin- lost effectiveness. Current preventative medication use: Magnesium 1 tab (? dose). Non-pharmacological interventions: ice cap, rest, hot shower. [facility] Medical History Acute respiratory insufficiency Atelectasis, bilateral Morbid obesity with BMI of 40.0-44.9, adult GERD (gastroesophageal reflux disease) Surgical History Status post cholecystectomy History of laparoscopic cholecystectomy (04/21/23) Family History Paternal Grandmother Diabetes Father Diabetes Social History Household Members: Family Household Members Other:: Mother and Father. Housing: House Do you presently have visiting nurse or other home services: No Alcohol intake: never Patient Tobacco Use Status: Never used Tobacco e-Cigarette/Vaping Use: Never Used Second Hand Smoke Exposure: No service: No Current occupational status: employed Current occupation: [employer] Current occupational exposures/hazards: No Sexual orientation: Straight/Heterosexual Gender identity: Female Cognitive needs: No Hearing needs: No Vision needs: Yes Female Reproductive History Menstrual Age of Menarche: 8 Physical Exam Vital Signs: Last Vital Signs BP 118/78 11/12/24 07:42 BMI result Body Mass Index 50.3 Const General: cooperative and no acute distress Orientation/consciousness: patient oriented x3 Resp Effort & Inspection: normal respiratory effort and able to speak in complete sentences Neuro General: patient oriented x3 Cranial nerves: Yes CN's II-XII intact bilaterally Cognition (Neuro): normal cognition Psych Appearance: grossly normal Mental Status: mental status grossly normal Speech and movement: Normal speech and movement present Affect: normal affect Attitude: cooperative Assessment & Plan Assessment & Plan (1) Migraine with aura: Code(s): G43.109 - Migraine with aura, not intractable, without status migrainosus Category: Medical (2) Obesity, morbid, BMI 50 or higher: Code(s): E66.01 - Morbid (severe) obesity due to excess calories Category: Medical (3) Snoring: Code(s): R06.83 - Snoring Category: Medical (4) Excessive daytime sleepiness: Code(s): G47.19 - Other hypersomnia Category: Medical (5) Elevated erythrocyte sedimentation rate: Code(s): R70.0 - Elevated erythrocyte sedimentation rate Category: Medical (6) Elevated C-reactive protein (CRP): Code(s): R79.82 - Elevated C-reactive protein (CRP) Category: Medical (7) Elevated cerebrospinal fluid pressure: Comment: 01/03/2023, at [facility] showed opening pressure 23 cm H2O. Brain MRI w/wo- without findings suggestive of IIH. No current vision loss symptoms. Patient is followed by [facility]. Code(s): G96.89 - Other specified disorders of central nervous system Category: Medical Plan Pt advised to: Routine eye exams as scheduled. We will request recent notes Labs as ordered for headaches, restless leg symptoms, fatigue. In-lab PSG to assess for sleep apnea and PLMS. Follow-up with weight management clinic. For recent bout of dizziness and episodes of orthostatic lightheadedness: Encourage patient to take at least 64-80 oz of fluid per day, including 1 serving of a electrolyte replacement beverage, such as Gatorade/Powerade/liquid IV. For overall headache management: Optimize good self-care, including but not limited to maintaining a healthy diet, adequate fluid intake, adequate sleep, and engaging in regular physical activity. Track headaches, especially after any treatment regimen changes. Migraine [employer] is one of many headache tracking apps. Information previously shared on non-pharmacological interventions which may help to alleviate headache attack burden. For acute headache treatment: Continue naproxen 500 mg twice a day as needed- now more effective. Zofran 4-8 mg every 4-6 hours as needed for nausea. Max of 4 tabs per day. Continue to use warming eye massage her device as needed If moderate to severe migraine returns, trial l Sumatriptan 100mg tab, 1/2 - 1 tab (50-100mg) at onset of headache, may repeat in 2 hours. Max of 2 tabs (200mg) per 24 hours. Previous acute migraine medication trials: Naproxen 500 mg- not effective. Excedrin lost effectiveness Acute migraine medication contraindications: None at this time For headache prevention medication: Preventative medications should be taken routinely as prescribed for best effect, it may take several weeks for full effect to take effect. Continue Riboflavin 400mg daily in the morning Continue Magnesium 400mg daily at bedtime Hold Topiramate 25-50mg daily at bedtime order- as migraine attacks have improved. Patient advised to discuss with her STAFF NURSE ANESTHETIST- trying non estrogen based control measure. Previous migraine prevention medication trials: None other Migraine prevention medication contraindications: Depakote-woman of childbearing age. CGRP MaB- patient is not currently on control, and this has a long duration of action. Will follow-up upon review of above and patient to follow-up in clinic in 6 months or sooner prn. Medications: New ondansetron HCl 4 - 8 mg (1 - 2 x 4 mg) PO Q4-6H 30 days PRN 30 tabs 3RF nausea and vomiting MDD 4 tabs Changed From naproxen 500 mg PO BID PRN 30 tabs 0RF for pain To naproxen 500 mg PO BID 90 days PRN 90 tabs 1RF for pain Coding Level of Care Code Est Pt Level 4 (67304) Diagnoses Migraine with aura G43.109 Obesity, morbid, BMI 50 or higher E66.01 Snoring R06.83 Excessive daytime sleepiness G47.19 Elevated erythrocyte sedimentation rate R70.0 Elevated C-reactive protein (CRP) R79.82 Elevated cerebrospinal fluid pressure G96.89
--- OUTSIDE RECORDS SUMMARY | 2024-11-12 07:40 | XMS_ITS | Data Portability ---
Author Organization CAROL Echols [facility], [address] Address [address] [place] [address] Assessment No assessment recorded. Plan of Treatment Reminders Order Date Submit Date Provider Last Modified By Organization Details Last Modified Time Details Appointments None recorded. Lab None recorded. Referral None recorded. Procedures None recorded. Surgeries None recorded. Imaging None recorded. Medication Orders naproxen 500 mg tablet 2022 023 [facility][id number], [address], [place], [phone], 3 09:07:19 methocarbam ol 750 mg tablet 2022 023 [facility], [address], [place], [phone], 3 09:07:18 Patient TargetsNo targets recorded. Patient Instructions Encounter Date Encounter Id Patient Instructions Last Modified By Organization Details Last Modified Time 03/01/2023 [id number] back strain: car e instructions [email or web address] Not [...] Not Available No t Available amoxicillin 875 mg-potnabiliu m clavulanate 125 mg tablet TAKE 1 TABLET BY MOUTH TWICE DAILY WITH FOOD FOR 10 DAYS 03/01 completed Not Available Not Available Not Available Vienva 0.1 mg-20 mcg tablet TAKE 1 TABLET EVERY DAY BY MOUTH 03/01 completed Not Available Not Available Not Available Vitals Date Recorded Body height Body mass index (BMI) Body weight Body temperature Respiratory rate Oxygen saturation Oxygen saturation in Arterial blood by Pulse oximetry Heart rate Pain severity - 0-10 verbal numeric rating [Score] - Reported Systolic blood pressure Diastolic blood pressure Provider Name and Address Organization Details Last Updated DateTime 3 157.48 cm 45.7 kg/m2 378547. 09 g 97.9 [degF] 18 /min 98 % 98 % 91 /min 6 106 mm[Hg] 66 mm[Hg] Verna [facility] 08:48:11 Social History Question Answer Notes LastModified by [employer] ion Details LastModified Time Tobacco Smoking Status Never Smoker Verna aceves PA [facility] 03/01/2023 08:49:30 What Is Your Level [...] 30 mcg/0.3 mL dose 12/28/2020 completed Verna Umana ketan, PA - [facility] 03/01/2023 08:48:28 Past Encounters Encounter ID Performer Location Encounter Start Date Encounter Closed Date Diagnosis/Indication Diagnosis SNOMED-CT Code Diagnosis ICD10 Code Diagnosis Note [id number] [address] [facility] [place] [address] 01/31/2018 08:19:37 01/31/2018 08:50:40 [id number] [address] [facility] [place] [address] 08/19/2018 17:04:58 08/19/2018 19:35:16 [id number] [address] [facility] [place] [address] 07/16/2017 19:32:08 07/16/2017 19:59:06 [id number] [address] [facility] [place] [address] 03/27/2022 11:23:31 03/27/2022 11:47:24 [id number] Jojo Rubin MD [address] [facility] [place] [address] 03/01/2023 08:04:04 03/01/2023 09:07:54 Lumbar sprain 379834354 S33.5XXA +muscle spasmMay apply heat 20 minutes [...] Rouse Member ID Guarantor Name 07/16/2017 1 [facility] [id number] Kristina Christopher Eaton [id number] Kristina Christopher Eaton 01/31/2018 1 [facility] [id number] Kristina Christopher Eaton [id number] Kristina Christopher Eaton 03/27/2022 1 [facility] [id number] Kristina Christopher Eaton [id number] Kristina Christopher Eaton 03/01/2023 1 [facility] [id number] Kristina Christopher Eaton [id number] Kristina Christopher Eaton Notes Date Note Type Note Provider Name and Address Organization Details Recorded Time 03/01/2023 text/html Back Pain/Injury UCReported bypatient.Locatio n:lower back; pain is not radiating Quality:dull;musc le spasms Duration:days Aggravating Factors:bending/s quatting;bending over/standing up Pt c/o lower back pain after sleeping in a particular position 3 days prior.Denies numbness, dysuria or loss of bowel function. No recent injury. Jojo Rubin MD [address] [place], [address], [place] - [facility] 03/01/2023 09:13:04 OBGyn Episode No OBEpisode recorded.
[2024-11-12 07:42] VITALS: BP 118/78; BMI 50.3
== END 2024-11-12 08:12 | disposition home or self-care (01) ==
LOC: HO.HSMS 07:37
PROVIDERS: PCP Nurse Practitioner Family; Visit Provider Nurse Practitioner Family
DX: G43.109 Migraine with aura, not intractable, without status migrainosus (principal); E66.01 Morbid (severe) obesity due to excess calories; R06.83 Snoring; G47.19 Other hypersomnia; R70.0 Elevated erythrocyte sedimentation rate; R79.82 Elevated C-reactive protein (CRP); G96.89 Other specified disorders of central nervous system
CPT/HCPCS: 99214